=== PATIENT | female | born 1945 | race Caucasian/White ===

== ENCOUNTER 2019-02-04 14:20 | Emergency (ER) | payer OTHER ==
[2019-02-04 15:28] LABS: Absolute Lymphocytes (CBC) 1.9 K/uL (0.7-4.9); Absolute Monocytes 0.8 K/uL (0.1-1.3); Absolute Neutrophil 5.1 K/uL (1.8-8.0); Basophils % 1.1 % (0-1.3); Eosinophils % 1.6 % (0-4.4); Hematocrit 38.6 % (36.0-45.0); Lymphocytes % 23.2 % (15.3-44.8); MPV 7.9 fL (7.6-11.3); Monocytes % 10.3 % (3.3-12.3); RBC Red Blood Cell Count 4.41 M/uL (3.86-4.86)
[2019-02-04 15:49] LABS: Albumin 2.8 g/dL (3.4-5.0); Bilirubin Direct 0.1 mg/dL (0-0.2); Bilirubin Total 0.3 mg/dL (0.2-1.0); Potassium 3.9 mmol/L (3.5-5.1); Protein, Total 7.5 g/dL (6.4-8.2)
--- NOTE | 2019-02-04 17:13 | RAD REPORT ---
EXAM DESCRIPTION: CT - Chest Abdomen Pelvis W Cont - 02/04/2019 4:41 pm CLINICAL HISTORY: Chest and abdominal pain COMPARISON: none TECHNIQUE: Computed axial tomography of the abdomen and pelvis was obtained. One hundred cc Isovue- 300 was administered intravenously. Oral contrast was not requested. This limits evaluation of bowel. Originally CT abdomen pelvis performed. After seeing the aortic dissection additional 50 cc of IV co ntrast given for total of [address] chest performed. The opacification of the ascending thoracic aorta and great vessels, and aortic arch is mildly suboptimal All CT scans are performed using dose optimization technique as appropriate and may include automated exposure control or mA/KV adjustment according to patient size. FINDINGS: Ascending thoracic aorta has an AP diameter 3.8 centimeters. 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 The dissection involves the entire abdominal aorta. The dissection extends into the right common and right external iliac arteries. The dissection involves the right common femora l and very proximal right superficial femoral artery. It appears that the true lumen is in the left a spect of the abdominal aorta and supplies the left renal artery and FRANK. It appears that the false olivia men supplies the celiac and SMA A pericardial effusion is not present. Small to moderate left and small right pleural effusions. Left lower lobe atelectasis. Small hepatic cyst. Spleen, pancreas, adrenals and kidneys unremarkable. Diverticula stem from the colon without diverticulitis. A 4.3 centimeter left ovarian cystic mass. 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 ([place] B) 4.3 centimeter left ovarian cystic mass. Nonemergent pelvic ultrasound recommended for further evalua tion Exam was discussed with Valente in the Emergency Room 5:03 p.m. February 04, 2019
[2019-02-04] MEDS ORDERED: Nicardipine/NS 25 MG/250 ML KIT IV ONE ×2 (17:14→19:17)
--- NOTE | 2019-02-04 18:00 | ER ---
Nurse's Notes [facility] Name: Marlene Valderrama Age: 73 yrs Sex: Female : 1945 Arrival Date: 02/04/2019 Time: 14:23 Bed 27 Private MD: Jey Mora B Diagnosis: Dissection of aorta Presentation: 02/04 14:23 Presenting complaint: Patient states: Lower abd pain for several days, has appointments sg scheduled with PCP for outpatient procedures but the pain has become much worse today and is unable to wait for scheduled testing, pt denies N/V/D/Fever at this time. Transition of care: patient was not received from another setting of care. Onset of symptoms was February 04, 2019. Risk Assessment: Do you want to hurt yourself or someone else? Patient reports no desire to harm self or others. Initial Sepsis Screen: Does the patient meet any 2 criteria? No. Patient's initial sepsis screen is negative. Does the patient have a suspected source of infection? Yes: Acute abdominal pain. Care prior to arrival: None. 14:23 Method Of Arrival: Ambulatory sg 14:23 Acuity: IGOR 3 sg Historical: - Allergies: 14:25 No Known Allergies; sg - Home Meds: 14:27 Unkown BP med [Active]; Unknown High Cholesterol Med [Active]; sg - PSHx: 14:25 R wrist; Thyroidectomy; sg - Immunization history:: Adult Immunizations up to date. - Social history:: Smoking status: Patient/guardian denies using tobacco. - Ebola Screening: : Patient negative for fever greater than or equal to 101.5 degrees Fahrenheit, and additional compatible Ebola Virus Disease symptoms Patient denies exposure to infectious person Patient denies travel to an Ebola-affected area in the 21 days before illness onset No symptoms or risks identified at this time. Screenin:53 Abuse screen: Denies threats or abuse. Denies injuries from another. Nutritional mg2 screening: No deficits noted. Tuberculosis screening: No symptoms or risk factors identified. Fall Risk IV access (20 points). Assessment: 15:51 General: Appears in no apparent distress. comfortable, Behavior is calm, cooperative. mg2 Pain: Complains of pain in abdomen Pain does not radiate. Pain currently is 4 out of 10 on a pain scale. Quality of pain is described as crampy, Pain began gradually, 2 weeks ago Is intermittent. Neuro: Level of Consciousness is awake, alert, obeys commands, Oriented to person, place, time, situation. Cardiovascular: Capillary refill < 3 seconds Patient's skin is warm and dry. Respiratory: Airway is patent Respiratory effort is even, unlabored, Respiratory pattern is regular, symmetrical. GI: Reports lower abdominal pain. : No signs and/or symptoms were reported regarding the genitourinary system. EENT: No signs and/or symptoms were reported regarding the EENT system. Derm: Skin is intact, is healthy with good turgor, Skin is pink, warm \T\ dry. normal. Musculoskeletal: Circulation, motion, and sensation intact. Capillary refill < 3 seconds, Reports weakness in right leg and left leg. 16:33 Reassessment: patient sent to ct scan via stretcher. mg2 18:22 Reassessment: patient informed about the need for transfer. patient and sister agreed mg2 about the plan. medications titrated according to blood pressure. 18:51 Reassessment: report called to MALINDA Mcallister of [facility] ICU [facility]. patient's sister mg2 signed the transfer form. patient kept on npo. Vital Signs: 14:24 BP 157 / 97; Pulse 88; Resp 19; Temp 97.6; Pulse Ox 100% on R/A; Weight 82.55 kg; Pain sg 10/10; 15:53 BP 163 / 84; Pulse 85; Resp 18; Pulse Ox 100% on R/A; Pain 3/10; mg2 16:51 BP 179 / 67; Pulse 80; Resp 18; Pulse Ox 100% on R/A; Pain 0/10; mg2 17:10 BP 194 / 83; Pulse 89; Resp 18; Pulse Ox 100% on R/A; Pain 0/10; mg2 17:17 BP 166 / 87; Pulse 93; Resp 16; Pulse Ox 96% on R/A; iw 17:25 BP 158 / 91; Pulse 99; Resp 18; Pulse Ox 96% on R/A; Pain 0/10; mg2 17:42 BP 141 / 67; Pulse 101; Resp 18; Pulse Ox 96% on R/A; mg2 18:10 BP 125 / 76; Pulse 105; Resp 18; Pulse Ox 98% on R/A; mg2 18:15 BP 102 / 82; Pulse 110; Resp 18; Pulse Ox 100% on R/A; Pain 0/10; mg2 18:51 BP 134 / 69; Pulse 98; Resp 18; Pulse Ox 98% on R/A; Pain 0/10; mg2 19:09 BP 132 / 67; Pulse 101; Resp 18; Pulse Ox 100% on R/A; Pain 0/10; mg2 ED Course: 14:23 Patient arrived in ED. mr 14:23 Jey Mora MD is Private Physician. mr 14:24 Triage completed. sg 14:24 Arm band placed on. sg 15:01 Salomón Deras, MALINDA is Primary Nurse. mg2 15:36 Valente Morocho PA is PHCP. jr8 15:36 Sukhjinder Prescott MD is Attending Physician. jr8 15:53 Patient has correct armband on for positive identification. Pulse ox on. NIBP on. Door mg2 closed. 15:53 No provider procedures requiring assistance completed. Inserted saline lock: 20 gauge mg2 in right antecubital area, using aseptic technique. Blood collected. 16:14 Patient moved to [place]. vr 17:05 initiated a transfer with Nga at the [facility] transfer center. eb 17:[address] Garcia the cardiothoracic surgeon planning consultant for [facility] with Valente santoyo for patient transfer consultation. 19:09 Patient transferred, IV remains in place. mg2 Administered Medications: 17:09 Drug: Cardene 5 mg/min Route: IV; Rate: calculated rate; Site: right antecubital; mg2 19:03 Follow up: Response: No adverse reaction; IV Status: Infusion continued upon transfer mg2 Outcome: 17:59 ER care complete, transfer ordered by . jr8 19:10 Transferred by ground EMS to [facility], Transfer form completed. mg2 19:10 Condition: stable 19:10 Instructed on the need for transfer, Demonstrated understanding of instructions. 19:10 Patient left the ED. mg2 Signatures: Dispatcher [employer] EDMS George Roberts RN MALINDA DarrellElidia mr LeiMichelle, Ayaka Jones RN vr Valente Morocho PA PA jr Preeti Mohan eb Salomón Deras, MALINDA RN mg2 Corrections: (The following items were deleted from the chart) 16:42 16:31 In radiology for Abdomen Pelvis W Con+CT.RAD.BRZ. EDMS EDMS
--- NOTE | 2019-02-04 18:00 | EDPHYS ---
Physician Documentation [facility] Name: Marlene Valderrama Age: 73 yrs Sex: Female : 1945 Arrival Date: 02/04/2019 Time: 14:23 Bed 27 Private MD: Jey Mora B ED Physician Sukhjinder Prescott HPI: 02/04 17:11 This 73 yrs old Female presents to ER via Ambulatory with complaints of jr8 Abdominal Pain. 17:11 The patient presents with abdominal pain in the lower abdomen. Onset: The jr8 symptoms/episode began/occurred gradually, 4 day(s) ago. The symptoms do not radiate. Associated signs and symptoms: Pertinent positives: leg cramping. The symptoms are described as crampy, dull. Modifying factors: The symptoms are alleviated by nothing, the symptoms are aggravated by movement. Severity of pain: At its worst the pain was very mild in the emergency department the pain is unchanged. The patient has not experienced similar symptoms in the past. The patient has been recently seen by a physician:. Patient stated that she saw her PCP who ordered some labs and imaging but could not have it done until next week. Stated that she has this very light but uncomfortable feeling to lower abdomen along with leg cramping that comes and goes and is worse with walking . Historical: - Allergies: 14:25 No Known Allergies; sg - Home Meds: 14:27 Unkown BP med [Active]; Unknown High Cholesterol Med [Active]; sg - PSHx: 14:25 R wrist; Thyroidectomy; sg - Immunization history:: Adult Immunizations up to date. - Social history:: Smoking status: Patient/guardian denies using tobacco. - Ebola Screening: : Patient negative for fever greater than or equal to 101.5 degrees Fahrenheit, and additional compatible Ebola Virus Disease symptoms Patient denies exposure to infectious person Patient denies travel to an Ebola-affected area in the 21 days before illness onset No symptoms or risks identified at this time. ROS: 17:11 Eyes: Negative for injury, pain, redness, and discharge, ENT: Negative for injury, jr8 pain, and discharge, Neck: Negative for injury, pain, and swelling, Cardiovascular: Negative for chest pain, palpitations, and edema, Respiratory: Negative for shortness of breath, cough, wheezing, and pleuritic chest pain, Back: Negative for injury and pain, MS/Extremity: Negative for injury and deformity, Skin: Negative for injury, rash, and discoloration, Neuro: Negative for headache, weakness, numbness, tingling, and seizure. 17:11 Abdomen/GI: Positive for abdominal cramps, Negative for nausea, vomiting, and diarrhea, abdominal distension, anorexia, dysphagia, hematemesis, black/tarry stool, rectal pain, rectal bleeding, bowel incontinence, flatulence. Exam: 17:11 Eyes: Pupils equal round and reactive to light, extra-ocular motions intact. Lids and jr8 lashes normal. Conjunctiva and sclera are non-icteric and not injected. Cornea within normal limits. Periorbital areas with no swelling, redness, or edema. ENT: Nares patent. No nasal discharge, no septal abnormalities noted. Tympanic membranes are normal and external auditory canals are clear. Oropharynx with no redness, swelling, or masses, exudates, or evidence of obstruction, uvula midline. Mucous membranes moist. Neck: Trachea midline, no thyromegaly or masses palpated, and no cervical lymphadenopathy. Supple, full range of motion without nuchal rigidity, or vertebral point tenderness. No Meningismus. Respiratory: Lungs have equal breath sounds bilaterally, clear to auscultation and percussion. No rales, rhonchi or wheezes noted. No increased work of breathing, no retractions or nasal flaring. Abdomen/GI: Soft, non-tender, with normal bowel sounds. No distension or tympany. No guarding or rebound. No evidence of tenderness throughout. Back: No spinal tenderness. No costovertebral tenderness. Full range of motion. Skin: Warm, dry with normal turgor. Normal color with no rashes, no lesions, and no evidence of cellulitis. MS/ Extremity: Pulses equal, no cyanosis. Neurovascular intact. Full, normal range of motion. Neuro: Awake and alert, GCS 15, oriented to person, place, time, and situation. Cranial nerves II-XII grossly intact. Motor strength 5/5 in all extremities. Sensory grossly intact. Cerebellar exam normal. Normal gait. 17:11 Cardiovascular: Rate: normal, Rhythm: regular, Pulses: Pulses are 2+ in right radial artery, right femoral artery, left radial artery and left femoral artery. Heart sounds: normal, normal S1and S2, no S3 or S4, no murmur, no rub, no gallop, Edema: is not appreciated, JVD: is not appreciated. Vital Signs: 14:24 BP 157 / 97; Pulse 88; Resp 19; Temp 97.6; Pulse Ox 100% on R/A; Weight 82.55 kg; Pain sg 10/10; 15:53 BP 163 / 84; Pulse 85; Resp 18; Pulse Ox 100% on R/A; Pain 3/10; mg2 16:51 BP 179 / 67; Pulse 80; Resp 18; Pulse Ox 100% on R/A; Pain 0/10; mg2 17:10 BP 194 / 83; Pulse 89; Resp 18; Pulse Ox 100% on R/A; Pain 0/10; mg2 17:17 BP 166 / 87; Pulse 93; Resp 16; Pulse Ox 96% on R/A; iw 17:25 BP 158 / 91; Pulse 99; Resp 18; Pulse Ox 96% on R/A; Pain 0/10; mg2 17:42 BP 141 / 67; Pulse 101; Resp 18; Pulse Ox 96% on R/A; mg2 18:10 BP 125 / 76; Pulse 105; Resp 18; Pulse Ox 98% on R/A; mg2 18:15 BP 102 / 82; Pulse 110; Resp 18; Pulse Ox 100% on R/A; Pain 0/10; mg2 18:51 BP 134 / 69; Pulse 98; Resp 18; Pulse Ox 98% on R/A; Pain 0/10; mg2 19:09 BP 132 / 67; Pulse 101; Resp 18; Pulse Ox 100% on R/A; Pain 0/10; mg2 MDM: 15:36 Patient medically screened. jr8 17:11 Data reviewed: vital signs, nurses notes, lab test result(s), radiologic studies, CT jr8 scan. Data interpreted: Pulse oximetry: on room air is 100 %. Interpretation: normal. Counseling: I had a detailed discussion with the patient and/or guardian regarding: the historical points, exam findings, and any diagnostic results supporting the discharge/admit diagnosis, lab results, radiology results, the need to transfer to another facility, for higher level of care, [facility] does not immediately have the required specialist. 17:58 ED course: Dr. Garcia Accepted at [facility] for acute dissection . jr8 02/04 15:03 Order name: Basic Metabolic Panel; Complete Time: 16:06 mg2 02/04 15:03 Order name: CBC with Diff; Complete Time: 16:06 mg2 02/04 15:03 Order name: Creatinine for Radiology; Complete Time: 16:06 mg2 02/04 15:03 Order name: Hepatic Function; Complete Time: 16:06 mg2 02/04 15:03 Order name: Lipase; Complete Time: 16:06 mg2 02/04 15:26 Order name: Urine Dipstick--Ancillary (enter results) eb 02/04 15:03 Order name: IV Saline Lock; Complete Time: 15:51 mg2 02/04 15:03 Order name: Labs collected and sent; Complete Time: 15:51 mg2 02/04 15:03 Order name: Urine Dipstick-Ancillary (obtain specimen); Complete Time: 15:51 mg2 02/04 16:42 Order name: Chest Abdomen Pelvis W Cont; Complete Time: 17:16 EDMS Administered Medications: 17:09 Drug: Cardene 5 mg/min Route: IV; Rate: calculated rate; Site: right antecubital; mg2 19:03 Follow up: Response: No adverse reaction; IV Status: Infusion continued upon transfer mg2 Disposition: 02/04/19 17:59 Transfer ordered to [facility]. Diagnosis is Dissection of aorta. - Reason for transfer: Higher level of care. - Accepting physician is Dr. Garcia . - Condition is Fair. - Problem is new. - Symptoms have improved. Addendum: 02/07/2019 08:28 Co-signature as Attending Physician, Sukhjinder Prescott MD I agree with the assessment and k dr plan of care. Signatures: Dispatcher [employer] EDLA George Roberts, RN RN Sukhjinder Prescott MD MD [facility] Valente Morocho PA PA jr8 Salomón Deras, RN RN mg2 Corrections: (The following items were deleted from the chart) 02/04 16:42 16:07 Abdomen Pelvis W Con+CT.RAD.BRZ ordered. EDLA EDMS 19:10 17:59 02/04/2019 17:59 Transfer ordered to [facility]. Diagnosis is mg2 Dissection of aorta. Reason for transfer: Higher level of care. Accepting physician is Dr. Jose . Condition is Fair. Problem is new. Symptoms have improved. jr8
[2019-02-04 19:57] LABS: Urine Blood 2+ (NEG); Urine Glucose NEGATIVE (NEG); Urine Protein NEGATIVE (NEG)
== END 2019-02-04 19:10 | disposition short-term general hospital (02) ==
LOC: ER 14:20
DX: I71.01 Dissection of thoracic aorta (principal)
CPT/HCPCS: 96365; 85025; 80048; 36415; 80076; 81003; 83690; 71260; 74177; 99285; 96366; Q9967

== ENCOUNTER 2019-03-25 10:01 | Emergency (ER) | payer OTHER ==
--- OUTSIDE RECORDS SUMMARY | 2019-03-25 11:53 | XMS REPORT | Clinical Summary ---
:1945 Author Organization [facility] Address [address] [place] [address] Care Team Providers Name Role Phone Unavailable Primary Care Provider Unavailable Allergies No Known Allergies Medications Medication Sig Dispensed Refills Start Date End Date Status levothyroxine Take 100 mcg 3 12/15/2018 Active (SYNTHROID, by mouth LEVOTHROID) 100 MCG daily. tablet rosuvastatin Take 5 mg by 3 12/12/2018 Active (CRESTOR) 5 MG mouth daily. tablet aspirin 81 MG EC Take 1 tablet 30 tablet 3 02/20/2019 02/20/2020 Active tablet (81 mg total) by mouth daily. clopidogrel (PLAVIX) Take 1 tablet 30 tablet 3 02/19/2019 02/19/2020 Active 75 mg tablet (75 mg total) by mouth daily. metoprolol Take 0.5 30 tablet 3 02/19/2019 02/19/2020 Active (LOPRESSOR) 25 MG tablets (12.5 tablet mg total) by mouth 2 (two) times daily. nisoldipine (SULAR) Take 8.5 mg 3 12/18/2018 02/19/2019 Discontinued 8.5 MG 24 hr tablet by mouth daily. 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 Encounters Date Type Specialty Care Team Description 02/15/2019 Surgery Esa Rouse REPAIR,TEVAR-THORACI MD Jeffrey C ENDOVASCULAR ANEURYSM 02/15/2019 Anesthesia Event Devendra Lynn MD 02/05/2019 Orders Only General Internal Medicine 02/05/2019 Travel 02/04/2019 - Hospital Encounter Cardiology Christiano Riverariel 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 Never 02/05/2019 How many drinks containing alcohol do you have on a typical Not asked day when you are drinking? How often do you have six or more drinks on one occasion? Not asked Sex Assigned at Date Recorded Not on file Job Start Date Occupation Industry Not on file Not on file Not on file Travel History Travel Start Travel End No recent travel history available. Last Filed Vital Signs Vital Sign Reading Time Taken Blood Pressure 128/59 02/19/2019 12:08 PM CDT Pulse 86 02/19/2019 12:08 PM CDT Temperature 37.5 C (99.5 F) 02/19/2019 12:08 PM CDT Respiratory Rate 18 02/19/2019 12:08 PM CDT Oxygen Saturation 95% 02/19/2019 12:08 PM CDT Inhaled Oxygen Concentration 33% 02/15/2019 7:00 PM CDT Weight 77.7 kg (171 lb 4.8 oz) 02/19/2019 7:36 AM CDT Height 162.6 cm (5' 4") 02/04/2019 9:00 PM CDT Body Mass Index 29.4 02/19/2019 7:36 AM CDT Plan of Treatment Not on file Implants Implanted Type Area Mill Supervisor Device Shelf Model / Identifier Expiration Serial / Date Lot Moe Aguirre [id number] - [id number] CV Aneurysm N/A: COOK: AORTIC 07/06/2021 [id number] / Implanted: Qty: 1 on 02/15/2019 by Esa Rouse MD Aorta INTERVENTION / [id number] Stent Epic [id number] - [id number] IMPLANTS N/A: [employer] 2021 [id number] / Implanted: Qty: 1 on 02/15/2019 by Esa Rouse MD Aorta SCI: PERIPHERAL / INTERV [id number] Zenith Alpha Thorzcic Endovascular Graft. N/A: [employer] [id number] 02/05/2020 [id number] / Implanted: Qty: 1 on 02/15/2019 by Esa Rouse MD Aorta / [id number] Procedures Procedure Name Priority Date/Time Associated Comments Diagnosis RHYTHM STRIP - SCAN 02/22/2019 11:03 AM CDT VASCULAR DIAGRAM 02/21/2019 12:30 -SCAN PM CDT RHYTHM STRIP - SCAN 02/21/2019 12:30 PM CDT CTA CHEST,ABDOMEN & STAT 02/19/2019 11:20 Results for this PELVIS - FOR AM CDT procedure are in DISSECTION the results section. XR CHEST 1 VIEW Routine 02/19/2019 7:11 Results for this PORTABLE/BEDSIDE AM CDT procedure are in the results section. PROTHROMBIN TIME/INR Routine 02/19/2019 5:14 Results for this AM CDT procedure are in the results section. APTT Routine 02/19/2019 5:14 Results for this AM CDT procedure are in the results section. PHOSPHORUS Routine 02/19/2019 5:14 Results for this AM CDT procedure are in the results section. MAGNESIUM Routine 02/19/2019 5:14 Results for this AM CDT procedure are in the results section. BASIC METABOLIC PANEL Routine 02/19/2019 5:14 Results for this (7) AM CDT procedure are in the results section. CBC (HEMOGRAM ONLY) Routine 02/19/2019 5:14 Results for this AM CDT procedure are in the results section. XR CHEST 1 VIEW Routine 02/18/2019 6:03 Results for this PORTABLE/BEDSIDE AM CDT procedure are in the results section. PROTHROMBIN TIME/INR Routine 02/18/2019 4:59 Results for this AM CDT procedure are in the results section. APTT Routine 02/18/2019 4:59 Results for this AM CDT procedure are in the results section. PHOSPHORUS Routine 02/18/2019 4:59 Results for this AM CDT procedure are in the results section. MAGNESIUM Routine 02/18/2019 4:59 Results for this AM CDT procedure are in the results section. BASIC METABOLIC PANEL Routine 02/18/2019 4:59 Results for this (7) AM CDT procedure are in the results section. CBC (HEMOGRAM ONLY) Routine 02/18/2019 4:59 Results for this AM CDT procedure are in the results section. RHYTHM STRIP - SCAN 02/17/2019 3:04 PM CDT MAGNESIUM Routine 02/17/2019 11:46 Results for this AM CDT procedure are in the results section. BASIC METABOLIC PANEL Routine 02/17/2019 11:46 Results for this (7) AM CDT procedure are in the results section. XR CHEST 1 VIEW Routine 02/17/2019 7:10 Results for this PORTABLE/BEDSIDE AM CDT procedure are in the results section. PROTHROMBIN TIME/INR Routine 02/17/2019 3:04 Results for this AM CDT procedure are in the results section. APTT Routine 02/17/2019 3:04 Results for this AM CDT procedure are in the results section. PHOSPHORUS Routine 02/17/2019 3:04 Results for this AM CDT procedure are in the results section. MAGNESIUM Routine 02/17/2019 3:04 Results for this AM CDT procedure are in the results section. BASIC METABOLIC PANEL Routine 02/17/2019 3:04 Results for this (7) AM CDT procedure are in the results section. CBC (HEMOGRAM ONLY) Routine 02/17/2019 3:04 Results for this AM CDT procedure are in the results section. PHOSPHORUS Routine 02/16/2019 5:18 Results for this PM CDT procedure are in the results section. MAGNESIUM Routine 02/16/2019 5:18 Results for this PM CDT procedure are in the results section. POTASSIUM Routine 02/16/2019 5:18 Results for this PM CDT procedure are in the results section. XR CHEST 1 VIEW Routine 02/16/2019 5:22 Results for this PORTABLE/BEDSIDE AM CDT procedure are in the results section. PROTHROMBIN TIME/INR Routine 02/16/2019 4:42 Results for this AM CDT procedure are in the results section. APTT Routine 02/16/2019 4:42 Results for this AM CDT procedure are in the results section. PHOSPHORUS Routine 02/16/2019 4:42 Results for this AM CDT procedure are in the results section. MAGNESIUM Routine 02/16/2019 4:42 Results for this AM CDT procedure are in the results section. BASIC METABOLIC PANEL Routine 02/16/2019 4:42 Results for this (7) AM CDT procedure are in the results section. CBC (HEMOGRAM ONLY) Routine 02/16/2019 4:42 Results for this AM CDT procedure are in the results section. MAGNESIUM Routine 02/15/2019 9:16 Results for this PM CDT procedure are in the results section. CALCIUM, IONIZED Routine 02/15/2019 9:16 Results for this PM CDT procedure are in the results section. POTASSIUM Routine 02/15/2019 9:16 Results for this PM CDT procedure are in the results section. TRANSFUSION SERVICE 02/15/2019 6:11 REPORT - SCAN PM CDT XR CHEST 1 VIEW STAT 02/15/2019 2:47 Results for this PORTABLE/BEDSIDE PM CDT procedure are in the results section. CBC W/PLT COUNT & STAT 02/15/2019 2:43 Results for this AUTO DIFFERENTIAL PM CDT procedure are in the results section. HGB/HCT (H&H) - STAT STAT 02/15/2019 2:43 Results for this LAB PM CDT procedure are in the results section. GLUCOSE-STAT LAB STAT 02/15/2019 2:43 Results for this PM CDT procedure are in the results section. POTASSIUM-STAT LAB STAT 02/15/2019 2:43 Results for this PM CDT procedure are in the results section. SODIUM NA-STAT LAB STAT 02/15/2019 2:43 Results for this PM CDT procedure are in the results section. BLOOD GAS, ARTERIAL STAT 02/15/2019 2:43 Results for this PM CDT procedure are in the results section. APTT STAT 02/15/2019 2:43 Results for this PM CDT procedure are in the results section. PROTHROMBIN TIME/INR STAT 02/15/2019 2:43 Results for this PM CDT procedure are in the results section. CALCIUM, IONIZED STAT 02/15/2019 2:43 Results for this PM CDT procedure are in the results section. RRL CRITICAL LABS STAT 02/15/2019 2:43 Results for this (ABG,NA,K,H&H,GLUCOSE PM CDT procedure are in ) the results section. PHOSPHORUS STAT 02/15/2019 2:43 Results for this PM CDT procedure are in the results section. MAGNESIUM STAT 02/15/2019 2:43 Results for this PM CDT procedure are in the results section. CBC W/PLT COUNT & STAT 02/15/2019 2:43 Results for this AUTO DIFFERENTIAL PM CDT procedure are in the results section. BASIC METABOLIC PANEL STAT 02/15/2019 2:43 Results for this (7) PM CDT procedure are in the results section. XR CHEST 1 VIEW Routine 02/15/2019 2:39 Results for this PORTABLE/BEDSIDE PM CDT procedure are in the results section. POCT-ACT Routine 02/15/2019 12:02 Results for this PM CDT procedure are in the results section. POCT-ACT Routine 02/15/2019 11:37 Results for this AM CDT procedure are in the results section. POCT-ACT Routine 02/15/2019 11:25 Results for this AM CDT procedure are in the results section. HGB/HCT (H&H) - STAT STAT 02/15/2019 10:38 Results for this LAB AM CDT procedure are in the results section. GLUCOSE-STAT LAB STAT 02/15/2019 10:38 Results for this AM CDT procedure are in the results section. POTASSIUM-STAT LAB STAT 02/15/2019 10:38 Results for this AM CDT procedure are in the results section. SODIUM NA-STAT LAB STAT 02/15/2019 10:38 Results for this AM CDT procedure are in the results section. BLOOD GAS, ARTERIAL STAT 02/15/2019 10:38 Results for this AM CDT procedure are in the results section. CALCIUM, IONIZED STAT 02/15/2019 10:38 Results for this AM CDT procedure are in the results section. RRL CRITICAL LABS STAT 02/15/2019 10:38 Results for this (ABG,NA,K,H&H,GLUCOSE AM CDT procedure are in ) the results section. REPAIR,TEVAR-THORACIC 02/15/2019 9:30 Dissection of ENDOVASCULAR ANEURYSM AM CDT aorta, thoracic (HCC) Case Notes 3 HRS Special Needs (INTRAVASCULAR ULTRASOUND, CEREBRAL SPINAL FLUID DRAIN) CBC (HEMOGRAM ONLY) Routine 02/15/2019 3:58 AM CDT BASIC METABOLIC PANEL (7) Routine 02/15/2019 3:58 AM CDT URINALYSIS W/ MICROSCOPIC Routine 02/14/2019 6:19 PM CDT ECG 12-LEAD Routine 02/14/2019 6:06 PM CDT Procedure Note - Interface, External Ris In - 02/14/2019 6:26 PM CDT Ventricular Rate 84 BPM Atrial Rate 84 BPM P-R Interval 132 ms QRS Duration 74 ms Q-T Interval 378 ms QTC Calculation(Bazett) 446 ms P Arjay 28 degrees R Arjay 7 degrees T Arjay 42 degrees Normal sinus rhythm Normal ECG When compared with ECG of 05-FEB-2019 13:41, No significant change was found ECG 12-LEAD Routine 02/14/2019 6:06 PM CDT XR CHEST 2 VIEWS Routine 02/14/2019 5:36 PM CDT TYPE AND SCREEN, AUTOMATED Routine 02/14/2019 5:27 PM CDT PROTHROMBIN TIME/INR Routine 02/14/2019 5:27 PM CDT RETICULOCYTE COUNT Routine 02/14/2019 5:27 PM CDT HEPATIC FUNCTION PANEL Routine 02/14/2019 5:27 PM CDT LIPASE Routine 02/14/2019 5:27 PM CDT LACTATE DEHYDROGENASE (LDH) Routine 02/14/2019 5:27 PM CDT HIV-1 ANTIGEN WITH HIV-1/2 Routine 02/14/2019 5:27 PM CDT Results for this ANTIBODY procedure are in the results section. HEPATITIS C ANTIBODY Routine 02/14/2019 5:27 PM CDT HEPATITIS B PANEL Routine 02/14/2019 5:27 PM CDT AMYLASE Routine 02/14/2019 5:27 PM CDT CBC (HEMOGRAM ONLY) Routine 02/14/2019 4:13 AM CDT BASIC METABOLIC PANEL (7) Routine 02/14/2019 4:13 AM CDT CBC (HEMOGRAM ONLY) Routine 02/13/2019 4:57 AM CDT BASIC METABOLIC PANEL (7) Routine 02/13/2019 4:57 AM CDT CBC (HEMOGRAM ONLY) Routine 02/12/2019 6:22 AM CDT BASIC METABOLIC PANEL (7) Routine 02/12/2019 6:22 AM CDT CBC (HEMOGRAM ONLY) Routine 02/11/2019 5:31 AM CDT MAGNESIUM Routine 02/11/2019 5:31 AM CDT BASIC METABOLIC PANEL (7) Routine 02/11/2019 5:31 AM CDT CBC (HEMOGRAM ONLY) Routine 02/10/2019 3:26 AM CDT MAGNESIUM Routine 02/10/2019 3:26 AM CDT BASIC METABOLIC PANEL (7) Routine 02/10/2019 3:26 AM CDT CBC (HEMOGRAM ONLY) Routine 02/09/2019 10:31 AM CDT MAGNESIUM Routine 02/09/2019 10:31 AM CDT BASIC METABOLIC PANEL (7) Routine 02/09/2019 10:31 AM CDT ECHOCARDIOGRAM REPORT - SCAN 02/07/2019 9:22 PM CDT CTA CHEST,ABDOMEN & PELVIS - Routine 02/07/2019 8:18 PM CDT Results for this FOR DISSECTION procedure are in the results section. 2D ECHO W/ DOPPLER Timed 02/07/2019 11:16 AM CDT (CW/PW/COLOR) 2D ECHO W/ DOPPLER Routine 02/07/2019 8:47 AM CDT Results for this (CW/PW/COLOR) procedure are in the results section. CBC W/PLT COUNT & AUTO Routine 02/07/2019 3:51 AM CDT Results for this DIFFERENTIAL procedure are in the results section. PHOSPHORUS Routine 02/07/2019 3:51 AM CDT MAGNESIUM Routine 02/07/2019 3:51 AM CDT BASIC METABOLIC PANEL (7) Routine 02/07/2019 3:51 AM CDT CBC W/PLT COUNT & AUTO Routine 02/07/2019 3:51 AM CDT Results for this DIFFERENTIAL procedure are in the results section. PHOSPHORUS Routine 02/06/2019 4:56 AM CDT MAGNESIUM Routine 02/06/2019 4:56 AM CDT BASIC METABOLIC PANEL (7) Routine 02/06/2019 4:56 AM CDT CBC W/PLT COUNT & AUTO Routine 02/06/2019 4:31 AM CDT Results for this DIFFERENTIAL procedure are in the results section. CBC W/PLT COUNT & AUTO Routine 02/06/2019 4:31 AM CDT Results for this DIFFERENTIAL procedure are in the results section. PERIPHERAL VASCULAR REPORT - 02/05/2019 9:21 PM CDT SCAN TRANSFUSION SERVICE REPORT - 02/05/2019 6:03 PM CDT SCAN ECG 12-LEAD Routine 02/05/2019 1:41 PM CDT Procedure Note - Interface, External Ris In - 02/05/2019 1:57 PM CDT Ventricular Rate 68 BPM Atrial Rate 68 BPM P-R Interval 150 ms QRS Duration 78 ms Q-T Interval 420 ms QTC Calculation(Bazett) 446 ms P Arjay 18 degrees R Arjay 5 degrees T Arjay 44 degrees Normal sinus rhythm Normal ECG No previous ECGs available ECG 12-LEAD STAT 02/05/2019 1:41 PM CDT ARTERIAL DOPPLER LEGS Routine 02/05/2019 12:50 PM CDT Results for this BILATERAL procedure are in the results section. CBC W/PLT COUNT & AUTO Routine 02/05/2019 4:17 AM CDT Results for this DIFFERENTIAL procedure are in the results section. PHOSPHORUS Routine 02/05/2019 4:17 AM CDT MAGNESIUM Routine 02/05/2019 4:17 AM CDT BASIC METABOLIC PANEL (7) Routine 02/05/2019 4:17 AM CDT CBC W/PLT COUNT & AUTO Routine 02/05/2019 4:17 AM CDT Results for this DIFFERENTIAL procedure are in the results section. XR CHEST 1 VIEW STAT 02/05/2019 12:25 AM CDT Results for this PORTABLE/BEDSIDE procedure are in the results section. ABORH, MANUAL STAT 02/04/2019 9:32 PM CDT CBC W/PLT COUNT & AUTO Routine 02/04/2019 8:56 PM CDT Results for this DIFFERENTIAL procedure are in the results section. TYPE AND SCREEN, AUTOMATED Routine 02/04/2019 8:56 PM CDT PROTHROMBIN TIME/INR Routine 02/04/2019 8:56 PM CDT PT/APTT Routine 02/04/2019 8:56 PM CDT MAGNESIUM Routine 02/04/2019 8:56 PM CDT PHOSPHORUS Routine 02/04/2019 8:56 PM CDT CBC W/PLT COUNT & AUTO Routine 02/04/2019 8:56 PM CDT Results for this DIFFERENTIAL procedure are in the results section. BASIC METABOLIC PANEL (7) Routine 02/04/2019 8:56 PM CDT after 03/24/2018 Results RHYTHM STRIP - SCAN (02/22/2019 11:03 AM CDT)Only the most recent of3 resultswithin the time period is included. Narrative Performed At VASCULAR DIAGRAM -SCAN (02/21/2019 12:30 PM CDT) Narrative Performed At CTA chest, abdomen & pelvis - for dissection (02/19/2019 11:20 AM CDT)Only the most recent of2 resultswithin the time period is included. Specimen Narrative Performed At Addendum Begins [facility] REPORT STATUS:A ADDENDUM: Study reviewed by radiology. Agree with the nonvascular findings as described below. Ultrasound of the pelvis is recommended for further evaluation of the left adnexal cystic lesion. Signed: Devendra Garcia MD Report Verified Date/Time:02/21/2019 13:06:06 Reading Location: [place] [address] Angio Body Reading Room Addendum Ends FINAL REPORT CT angiography of the thoracoabdominal aorta and pelvic arteries, 19 February 2019 INDICATION: This is a 73 year old female with stenting of the descending thoracic aorta presents for assessment. This study is performed in an attempt to avoid an invasive procedure. TECHNIQUE: Spiral acquisition before and during intravenous contrast administration using a Phuong multidetector CT scanner. Images were obtained before and during the dynamic passage of intravenous contrast material.Multi-planar 3-D volume-rendering reconstruction was performed using an independent workstation interactively by the interpreting physician as well as the 3-D specialist for optimal visualisation of the thoracoabdominal aorta, the pelvic arteries as well as its proximal branches. Please refer to the contrast sheet scanned in the EPIC system for the amount and route of contrast given. This exam was performed according to our departmental dose-optimisation programme, which includes automated exposure control, adjustment of the mA and/or kV according to patient size and/or use of iterative reconstruction technique. Dose modulation, iterative reconstruction, and/or weight based adjustment of the mA/kV was utilized to reduce the radiation dose to as low as reasonably achievable. FINDINGS: VASCULAR: A central venous catheter is identified, with tip in the SVC. The central pulmonary arteries are normal in calibre. The cardiac chambers demonstrate normal atrioventricular and ventriculoarterial concordance, and systemic and pulmonary venous return. The left ventricle is normal in size. Left atrial prominence is identified. Coronary artery origins are normal. No significant calcification is seen in the coronary arteries in the precontrast series. No interval change is identified in the aortic root, ascending thoracic aorta and transverse arch. No retrograde dissection is identified. Arch vessel branching pattern is normal and the visualised arch vessels are seen to be patent proximally. There is interval placement of an endostent, commencing at the takeoff of the left subclavian artery, through the entire descending thoracic aorta and terminates at the diaphragmatic hiatus. The endostent is well-positioned. In the arterial and delay images, no endoleak is identified. The left subclavian artery is still well enhanced by contrast. 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 The dissection extends through the entire abdominal aorta, and involves the left common iliac, left external iliac and the left common femoral artery and also involve the origin of the left SFA and the left profunda system. In the right, the dissection involves the right common iliac, right external iliac, right common femoral, and spared the visualised right SFA and the right profunda system. The false lumen of the dissection is not filled by contrast in the distal descending thoracic aorta (thrombosed) and both the true and the false lumen are well enhanced by contrast in the abdominal aorta though there is still minimal thrombus identified just above the aortic bifurcation. The false lumen in the right pelvic arteries are thrombosed though the left and right pelvic arteries are still widely patent and well enhanced by contrast. The coeliac axis, SMA, right renal artery, all rise from the true lumen of the dissection. Interval placement of a renal stent is identified in the left renal artery that is widely patent. The FRANK arise from the false lumen of the dissection. Quantitative dimensions of the thoracoabdominal aorta are as follows - not measured. Measurement will be made in future follow-up examination. NON-VASCULAR: The thyroid gland is not well assessed. The chest wall and mediastinum appear normal. No significant adenopathy is seen. In the lung windows, no obvious endobronchial lesion is seen. Minimal debris is identified anterior aspect of the thoracic aorta. Currently denies moderate to large left pleural effusion identified with associated atelectatic changes/consolidation. No pleural effusion is identified in the right base with only dependent changes present. By Hounsfield unit measurement, the effusion is simple in nature. No pneumothorax is identified. Tiny 2 mm nodule seen in the fissure in the right lung at image 77 representing interfissural lymph node. No suspicious pulmonary nodule is identified. In the abdomen, the liver and spleen appears unremarkable. Subcentimeter hypodensities are seen in the liver, too small to characterise. No abnormal enhancing structure is identified. Small gallstones are seen in the gallbladder with no wall thickening identified. No biliary ductal dilation is seen. The pancreas appears unremarkable. The adrenal glands are not enlarged. No acute renal pathology is seen and no hydronephrosis or perirenal fluid collection is identified. Subcentimeter hypodensity is identified in the lateral aspect of the left kidney, too small to characterise. Both kidneys enhances equally, by visual estimation. Bowel is not well assessed by CT angiography as enteric contrast not given. No obvious bowel dilation is identified. Diffuse diverticular disease is seen with no acute pathology changes present. The bladder is not distended. The uterus is identified. Hypodensity is identified in the left adnexa, at image 333, measures 4.4 x 3.1 cm in diameter that is water density. This is an abnormal finding in patient's age group. This is already been described in prior addendum by the Financial Planning Advisor Radiologist and dedicated ultrasound scan should be performed when acute medical issues has resolved for tissue characterisation. Some inflammatory changes are seen in the right groin, likely represent prior catheterization. No intraperitoneal contrast is seen, and no discrete haematoma is noted. There is no significant retroperitoneal adenopathy.No free fluid or free air is identified. No interval change is seen in the bony findings. CONCLUSIONS: 1. Unremarkable ascending thoracic aorta and transverse arch. No dissection is seen at this level. Interval placement of a endostent, commencing at the takeoff of the left subclavian artery through the descending thoracic aorta and terminates just above the diaphragmatic hiatus. The endostent has excellent position. No endoleak is identified. The left subclavian artery is well enhanced by contrast. 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 The pelvic arteries are still well enhanced by contrast; . See above for details. Status of the mesenteric and renal arteries as described above and they're well enhanced by contrast. Interval placement of left renal stent that is widely patent. 2.Moderate to large left pleural effusion when compared to moderate effusion in prior examination a week ago. No suspicious pulmonary nodule is identified. 3.Other findings as described above. Left adnexal cystic lesion, already been described in prior addendum, and the Financial Planning Advisor Radiologist recommended dedicated pelvic ultrasound scan for further tissue as this is an abnormal finding for patient's age group. 4.An addendum will be dictated regarding the non-vascular findings by the Financial Planning Advisor Radiologist. Signed: Shaggy Brown MD Report Verified Date/Time:02/20/2019 08:12:32 Reading Location: [place] [address] Cardiology MRI Procedure Note Interface, External Ris In - 02/21/2019 1:08 PM CDT Addendum Begins REPORT STATUS:A ADDENDUM: Study reviewed by radiology. Agree with the nonvascular findings as described below. Ultrasound of the pelvis is recommended for further evaluation of the left adnexal cystic lesion. Signed: Devendra Garcia MD Report Verified Date/Time: 02/21/2019 13:06:06 Reading Location: [place] [id number] Angio Body Reading Room Addendum Ends FINAL REPORT CT angiography of the thoracoabdominal aorta and pelvic arteries, 19 February 2019 INDICATION: This is a 73 year old female with stenting of the descending thoracic aorta presents for assessment. This study is performed in an attempt to avoid an invasive procedure. TECHNIQUE: Spiral acquisition before and during intravenous contrast administration using a Phuong multidetector CT scanner. Images were obtained before and during the dynamic passage of intravenous contrast material. Multi-planar 3-D volume-rendering reconstruction was performed using an independent workstation interactively by the interpreting physician as well as the 3-D specialist for optimal visualisation of the thoracoabdominal aorta, the pelvic arteries as well as its proximal branches. Please refer to the contrast sheet scanned in the EPIC system for the amount and route of contrast given. This exam was performed according to our departmental dose-optimisation programme, which includes automated exposure control, adjustment of the mA and/or kV according to patient size and/or use of iterative reconstruction technique. Dose modulation, iterative reconstruction, and/or weight based adjustment of the mA/kV was utilized to reduce the radiation dose to as low as reasonably achievable. FINDINGS: VASCULAR: A central venous catheter is identified, with tip in the SVC. The central pulmonary arteries are normal in calibre. The cardiac chambers demonstrate normal atrioventricular and ventriculoarterial concordance, and systemic and pulmonary venous return. The left ventricle is normal in size. Left atrial prominence is identified. Coronary artery origins are normal. No significant calcification is seen in the coronary arteries in the precontrast series. No interval change is identified in the aortic root, ascending thoracic aorta and transverse arch. No retrograde dissection is identified. Arch vessel branching pattern is normal and the visualised arch vessels are seen to be patent proximally. There is interval placement of an endostent, commencing at the takeoff of the left subclavian artery, through the entire descending thoracic aorta and terminates at the diaphragmatic hiatus. The endostent is well-positioned. In the arterial and delay images, no endoleak is identified. The left subclavian artery is still well enhanced by contrast. 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 The dissection extends through the entire abdominal aorta, and involves the left common iliac, left external iliac and the left common femoral artery and also involve the origin of the left SFA and the left profunda system. In the right, the dissection involves the right common iliac, right external iliac, right common femoral, and spared the visualised right SFA and the right profunda system. The false lumen of the dissection is not filled by contrast in the distal descending thoracic aorta (thrombosed) and both the true and the false lumen are well enhanced by contrast in the abdominal aorta though there is still minimal thrombus identified just above the aortic bifurcation. The false lumen in the right pelvic arteries are thrombosed though the left and right pelvic arteries are still widely patent and well enhanced by contrast. The coeliac axis, SMA, right renal artery, all rise from the true lumen of the dissection. Interval placement of a renal stent is identified in the left renal artery that is widely patent. The FRANK arise from the false lumen of the dissection. Quantitative dimensions of the thoracoabdominal aorta are as follows - not measured. Measurement will be made in future follow-up examination. NON-VASCULAR: The thyroid gland is not well assessed. The chest wall and mediastinum appear normal. No significant adenopathy is seen. In the lung windows, no obvious endobronchial lesion is seen. Minimal debris is identified anterior aspect of the thoracic aorta. Currently denies moderate to large left pleural effusion identified with associated atelectatic changes/consolidation. No pleural effusion is identified in the right base with only dependent changes present. By Hounsfield unit measurement, the effusion is simple in nature. No pneumothorax is identified. Tiny 2 mm nodule seen in the fissure in the right lung at image 77 representing interfissural lymph node. No suspicious pulmonary nodule is identified. In the abdomen, the liver and spleen appears unremarkable. Subcentimeter hypodensities are seen in the liver, too small to characterise. No abnormal enhancing structure is identified. Small gallstones are seen in the gallbladder with no wall thickening identified. No biliary ductal dilation is seen. The pancreas appears unremarkable. The adrenal glands are not enlarged. No acute renal pathology is seen and no hydronephrosis or perirenal fluid collection is identified. Subcentimeter hypodensity is identified in the lateral aspect of the left kidney, too small to characterise. Both kidneys enhances equally, by visual estimation. Bowel is not well assessed by CT angiography as enteric contrast not given. No obvious bowel dilation is identified. Diffuse diverticular disease is seen with no acute pathology changes present. The bladder is not distended. The uterus is identified. Hypodensity is identified in the left adnexa, at image 333, measures 4.4 x 3.1 cm in diameter that is water density. This is an abnormal finding in patient's age group. This is already been described in prior addendum by the Financial Planning Advisor Radiologist and dedicated ultrasound scan should be performed when acute medical issues has resolved for tissue characterisation. Some inflammatory changes are seen in the right groin, likely represent prior catheterization. No intraperitoneal contrast is seen, and no discrete haematoma is noted. There is no significant retroperitoneal adenopathy. No free fluid or free air is identified. No interval change is seen in the bony findings. CONCLUSIONS: 1. Unremarkable ascending thoracic aorta and transverse arch. No dissection is seen at this level. Interval placement of a endostent, commencing at the takeoff of the left subclavian artery through the descending thoracic aorta and terminates just above the diaphragmatic hiatus. The endostent has excellent position. No endoleak is identified. The left subclavian artery is well enhanced by contrast. 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 The pelvic arteries are still well enhanced by contrast; . See above for details. Status of the mesenteric and renal arteries as described above and they're well enhanced by contrast. Interval placement of left renal stent that is widely patent. 2. Moderate to large left pleural effusion when compared to moderate effusion in prior examination a week ago. No suspicious pulmonary nodule is identified. 3. Other findings as described above. Left adnexal cystic lesion, already been described in prior addendum, and the Financial Planning Advisor Radiologist recommended dedicated pelvic ultrasound scan for further tissue as this is an abnormal finding for patient's age group. 4. An addendum will be dictated regarding the non-vascular findings by the Financial Planning Advisor Radiologist. Signed: Shaggy Brown MD Report Verified Date/Time: 02/20/2019 08:12:32 Reading Location: [place] [address] Cardiology MRI Performing Organization Address City/State/Zipcode Phone Number [facility] XR chest 1 view portable / bedside (02/19/2019 7:11 AM CDT)Only the most recent of7 resultswithin the time period is included. Specimen Narrative Performed At FINAL REPORT [facility] Comparison: 02/18/2019 TECHNIQUE: Single view of the chest FINDINGS: Left pleural effusion and adjacent airspace disease again noted. Lungs otherwise clear. Cardiac silhouette is enlarged. Thoracic aortic stent graft noted. Right internal jugular central line is stable. Signed: Sha Freeman MD Report Verified Date/Time:02/19/2019 12:36:50 Reading Location: [facility] [id number] Ortho Consult Reading Room Procedure Note Interface, External Ris In - 02/19/2019 12:39 PM CDT FINAL REPORT Comparison: 02/18/2019 TECHNIQUE: Single view of the chest FINDINGS: Left pleural effusion and adjacent airspace disease again noted. Lungs otherwise clear. Cardiac silhouette is enlarged. Thoracic aortic stent graft noted. Right internal jugular central line is stable. Signed: Sha Freeman MD Report Verified Date/Time: 02/19/2019 12:36:50 Reading Location: [facility] B1 [id number] Ortho Consult Reading Room Performing Organization Address City/[facility] Cent[facility] Phone Number [facility] aPTT (02/19/2019 5:14 AM CDT)Only the most recent of5 resultswithin the time period is included. PTT 34.6 22.5 - 36.0 seconds [facility] Specimen Blood Performing Organization Address City/[facility]/Zipcode Phone Number [facility] [address] [place] [phone] CENTER Prothrombin time/INR (02/19/2019 5:14 AM CDT)Only the most recent of7 resultswithin the time period is included. Protime 14.2 11.7 - 14.7 seconds [facility] INR 1.1 <=5.9 [facility] Specimen Blood Narrative Performed At RECOMMENDED COUMADIN/WARFARIN INR THERAPY [facility] RANGES STANDARD DOSE: 2.0 - 3.0 Includes: PROPHYLAXIS for venous thrombosis, systemic embolization; TREATMENT for venous thrombosis and/or pulmonary embolus. HIGH RISK: Target INR is 2.5-3.5 for patients with mechanical heart valves. Performing Organization Address City/[facility] Cent[facility]ode Phone Number [address] [address] [phone] [place] CBC (Hemogram only) (02/19/2019 5:14 AM CDT)Only the most recent of11 resultswithin the time period is included. WBC 8.2 3.5 - 10.5 K/L [facility] RBC 3.28 (L) 3.93 - 5.22 M/L [facility] Hemoglobin 9.3 (L) 11.2 - 15.7 GM/DL [facility] Hematocrit 29.1 (L) 34.1 - 44.9 % [facility] MCV 88.7 79.4 - 94.8 fL [facility] MCH 28.4 25.6 - 32.2 pg [facility] MCHC 32.0 (L) 32.2 - 35.5 GM/DL [facility] RDW 13.3 11.7 - 14.4 % [facility] Platelets 215 150 - 450 K/CU MM [facility] MPV 10.3 9.4 - 12.3 fL [facility] nRBC 0 0 - 0 /100 WBC [facility] Specimen Blood Performing Organization Address City/State/Zipcode Phone Number [address] [address] CENTER Phosphorus (02/19/2019 5:14 AM CDT)Only the most recent of10 resultswithin the time period is included. Phosphorus 2.5 2.3 - 4.7 mg/dL [facility] Specimen Blood Performing Organization Address City/State/Zipcode Phone Number [address] [address] [phone] CENTER Magnesium (02/19/2019 5:14 AM CDT)Only the most recent of15 resultswithin the time period is included. Magnesium 1.5 (L) 1.6 - 2.6 mg/dL [facility] Specimen Blood Performing Organization Address [facility] Centercode Phone Number [address] [address] CENTER Basic Metabolic Panel (02/19/2019 5:14 AM CDT)Only the most recent of17 resultswithin the time period is included. Sodium 138 136 - 145 meq/L [facility] Potassium 3.6 3.5 - 5.1 meq/L [facility] Chloride 103 98 - 107 meq/L [facility] CO2 29 22 - 29 meq/L [facility] BUN 6 (L) 7 - 21 mg/dL [facility] Creatinine 0.60 0.57 - 1.25 mg/dL [facility] Glucose 93 70 - 105 mg/dL [facility] Calcium 8.4 8.4 - 10.2 mg/dL [facility] EGFR 98Comment: ESTIMATED GFR IS mL/min/1.73 sq m [facility] NOT ACCURATE CREATININE [facility] CLEARANCE IN PREDICTING GLOMERULAR FILTRATION RATE. ESTIMATED GFR IS NOT APPLICABLE FOR DIALYSIS PATIENTS. Specimen Blood Performing Organization Address City/[facility]/Zipcode Phone Number [address] [address] [phone] CENTER Potassium (02/16/2019 5:18 PM CDT)Only the most recent of2 resultswithin the time period is included. Potassium 3.5 3.5 - 5.1 meq/L [facility] Specimen Blood Narrative Performed At Check Serum Phosphorus level 4 hours after IV [facility] phosphorus replacement or 8 hours after PO replacement completed. Check Serum Potassium level 2 hours after oral potassium replacement completed or 30 min after intravenous potassium replacement. Performing Organization Address City/[facility] Centerconm Phone Number [address] [address] [phone] [place] Calcium, Ionized (02/15/2019 9:16 PM CDT)Only the most recent of3 resultswithin the time period is included. Calcium, Ion 1.09 (L) 1.12 - 1.27 mmol/L [facility] pH, Blood 7.42 [facility] Specimen Blood Narrative Performed At Check serum Ionized Calcium level after 4 [facility] hours after IV Calcium replacement. Performing Organization Address [facility] Phone Number [address] [address] [place] TRANSFUSION SERVICE REPORT - SCAN (02/15/2019 6:11 PM CDT)Only the most recent of2 resultswithin the time period is included. Narrative Performed At Potassium-Stat Lab (02/15/2019 2:43 PM CDT)Only the most recent of2 resultswithin the time period is included. Potassium 3.7 3.6 - 5.5 meq/L [facility] Specimen Blood, Arterial Performing Organization Address [facility] Phone Number [address] [address] [place] Sodium Na-Stat Lab (02/15/2019 2:43 PM CDT)Only the most recent of2 resultswithin the time period is included. Sodium 136 135 - 148 meq/L [facility] Specimen Blood, Arterial Performing Organization Address City/[facility] Phone Number [facility] [address] [place] [phone] CENTER Glucose-Stat Lab (02/15/2019 2:43 PM CDT)Only the most recent of2 resultswithin the time period is included. Glucose 148 (H) 70 - 110 mg/dL [facility] Specimen Blood, Arterial Performing Organization Address City/[facility]/Zipcode Phone Number [address] [address] [place] HGB/HCT (H&H)-Stat Lab (02/15/2019 2:43 PM CDT)Only the most recent of2 resultswithin the time period is included. Hemoglobin 10.8 (L) 12.0 - 15.0 g/dL [facility] Hematocrit 32.0 (L) 36.0 - 45.0 % [facility] Specimen Blood, Arterial Performing Organization Address City/[facility]/Zipcode Phone Number [address] [address] [phone] [place] CBC with platelet count + automated diff (02/15/2019 2:43 PM CDT)Only the most recent of5 resultswithin the time period is included. WBC 13.7 (H) 3.5 - 10.5 K/L [facility] RBC 3.36 (L) 3.93 - 5.22 M/L [facility] Hemoglobin 9.7 (L) 11.2 - 15.7 GM/DL [facility] Hematocrit 30.9 (L) 34.1 - 44.9 % [facility] MCV 92.0 79.4 - 94.8 fL [facility] MCH 28.9 25.6 - 32.2 pg [facility] MCHC 31.4 (L) 32.2 - 35.5 GM/DL [facility] RDW 12.8 11.7 - 14.4 % [facility] Platelets 365 150 - 450 K/CU MM [facility] MPV 9.8 9.4 - 12.3 fL [facility] nRBC 0 0 - 0 /100 WBC [facility] % Neutros 75 % [facility] % Lymphs 17 % [facility] % Monos 5 % [facility] % Eos 1 % [facility] % Baso 0 % [facility] # Neutros 10.30 (H) 1.56 - 6.13 K/L [facility] # Lymphs 2.26 1.18 - 3.74 K/L [facility] # Monos 0.64 (H) 0.24 - 0.36 K/L [facility] # Eos 0.18 0.04 - 0.36 K/L [facility] # Baso 0.06 0.01 - 0.08 K/L [facility] Immature 2 (H) 0 - 1 % [facility] Granulocytes-[facility] Specimen Blood Performing Organization Address City/State/Zipcode Phone Number [facility] [address] [place] [address] [phone] CENTER Blood gas, arterial (02/15/2019 2:43 PM CDT)Only the most recent of2 resultswithin the time period is included. pH, Arterial 7.38 7.35 - 7.45 [facility] pCO2, Arterial 35 35 - 45 mmHg [facility] pO2, Arterial 123 (H) 80 - 90 mmHg [facility] O2 Sat, Arterial 98.6 (H) 96.0 - 97.0 % [facility] HCO3, Arterial 21 21 - 29 mmol/L [facility] Base Excess, Arterial -4.6 (L) -2.0 - 3.0 mmol/L [facility] Patient Temperature 34.2 C [facility] FIO2 60.0 % [facility] Specimen Blood, Arterial Performing Organization Address [facility] Centercode Phone Number [address] [address] [place] POC ACTIVATED CLOTTING TIME (02/15/2019 12:02 PM CDT)Only the most recent of3 resultswithin the time period is included. Activated Clotting Time 257Comment: TESTED AT sec [address] [address] Specimen Blood Performing Organization Address [facility] Centerconm Phone Number [address] [address] [place] Urinalysis w/Microscopic (02/14/2019 6:19 PM CDT) Color, UA Colorless [facility] Clarity, UA Clear [facility] Specific [place], UA 1.001 1.001 - 1.035 [facility] pH, UA 7.0 5.0 - 8.0 [facility] Protein, UA Negative Negative [facility] Glucose, UA Negative Negative [facility] Ketones, UA Negative Negative [facility] Bilirubin, UA Negative Negative [facility] Blood, UA Small (A) Negative [facility] Nitrite, UA Negative Negative [facility] Leukocytes, UA Trace (A) Negative [facility] Urobilinogen, UA 0.2 0.2 - 1.0 mg/dL [facility] RBC, UA 2 /HPF [facility] WBC, UA 2 /HPF [facility] Specimen Source Urine, Voided [facility] Specimen Urine Performing Organization Address City/State/Zipcode Phone Number [facility] [address] [place] [address] [phone] CENTER ECG 12 lead (02/14/2019 6:06 PM CDT)Only the most recent of2 resultswithin the time period is included. Specimen Narrative Performed At Ventricular Rate 84 BPM GE MUSE Atrial Rate 84 BPM P-R Interval 132 ms QRS Duration 74 ms Q-T Interval 378 ms QTC Calculation(Bazett) 446 ms P Arjay 28 degrees R Arjay 7 degrees T Arjay 42 degrees Normal sinus rhythm Normal ECG When compared with ECG of 05-FEB-2019 13:41, No significant change was found Confirmed by MD JACOB JOSEPH P ([id number]) on 02/15/2019 4:14:08 PM Procedure Note Interface, External Ris In - 02/15/2019 4:14 PM CDT Ventricular Rate 84 BPM Atrial Rate 84 BPM P-R Interval 132 ms QRS Duration 74 ms Q-T Interval 378 ms QTC Calculation(Bazett) 446 ms P Arjay 28 degrees R Arjay 7 degrees T Arjay 42 degrees Normal sinus rhythm Normal ECG When compared with ECG of 05-FEB-2019 13:41, No significant change was found Confirmed by MD JACOB JOSEPH P ([id number]) on 02/15/2019 4:14:08 PM Performing Organization Address City/[facility] Centercode Phone Number GE MUSE XR chest 2 views (02/14/2019 5:36 PM CDT) Specimen Narrative Performed At FINAL REPORT [facility] EXAM: PA and lateral chest radiograph COMPARISON: February 05, 2019 CLINICAL HISTORY: Preoperative clearance FINDINGS: There is interval development of moderate left pleural effusion with associated atelectasis. The right lung is clear. There is no evidence of pneumothorax. The cardiac size is within normal limits. The regional osseous structures are unremarkable. Signed: Camryn Galdamez MD Report Verified Date/Time:02/14/2019 17:43:10 Reading Location: [facility] Diagnostic Imaging Reading Room - [facility] 1.310.12 Procedure Note Interface, External Ris In - 02/14/2019 5:45 PM CDT FINAL REPORT EXAM: PA and lateral chest radiograph COMPARISON: February 05, 2019 CLINICAL HISTORY: Preoperative clearance FINDINGS: There is interval development of moderate left pleural effusion with associated atelectasis. The right lung is clear. There is no evidence of pneumothorax. The cardiac size is within normal limits. The regional osseous structures are unremarkable. Signed: Camryn Galdamez MD Report Verified Date/Time: 02/14/2019 17:43:10 Reading Location: [facility] Diagnostic Imaging Reading Room - [facility] 1.310.12 Performing Organization Address City/[facility] Centercode Phone Number GE RIS Type and screen, automated (02/14/2019 5:27 PM CDT)Only the most recent of2 resultswithin the time period is included. ABO/RH AUTOMATED (BEAKER) O POSITIVE [facility] Ab Scrn NEGATIVE [facility] Specimen Blood Performing Organization Address [facility] Center[facility] Phone Number [address] [address] HIV-1 Antigen with HIV-1/2 Antibody (02/14/2019 5:27 PM CDT) HIV-1 Antigen with HIV 1&2 NON-REACTIVE Nonreactive [facility] Antibody [facility] Specimen Blood Performing Organization Address [facility]/Zipcode Phone Number [address] [address] CENTER Hepatitis B Panel (02/14/2019 5:27 PM CDT) Hep B Core Total Ab NON-REACTIVE Nonreactive [facility] Hep B S Ab <8.0 <8.0 mIU/mL [facility] hepatitis B Surface Ag NON-REACTIVE Nonreactive [facility] Specimen Blood Performing Organization Address [facility] Centercode Phone Number [address] [address] [phone] [place] Hepatitis C antibody (02/14/2019 5:27 PM CDT) Hepatitis C Ab NON-REACTIVE Nonreactive [facility] Specimen Blood Performing Organization Address [facility] Phone Number [address] [address] [phone] [facility] Reticulocyte count (02/14/2019 5:27 PM CDT) % Retic 2.0 (H) 0.5 - 1.7 % [facility] Specimen Blood Performing Organization Address [facility] Phone Number [address] [address] C[place] Lipase (02/14/2019 5:27 PM CDT) Lipase 202 (H) 8 - 78 U/L [facility] Specimen Blood Performing Organization Address [facility] Phone Number [address] [address] [phone] [facility] Lactate dehydrogenase (LDH) (02/14/2019 5:27 PM CDT) LDH 278 (H) 125 - 220 U/L [facility] Specimen Blood Performing Organization Address [facility] Phone Number [address] [address] [facility] Amylase (02/14/2019 5:27 PM CDT) Amylase 48 25 - 125 U/L [facility] Specimen Blood Performing Organization Address [facility] Phone Number [address] [address] [facility] Hepatic function panel (02/14/2019 5:27 PM CDT) Protein, Total 6.9 6.0 - 8.3 gm/dL [facility] Albumin 3.3 (L) 3.5 - 5.0 g/dL [facility] Total Bilirubin 0.3 0.2 - 1.2 mg/dL [facility] Bilirubin, Direct 0.2 0.1 - 0.5 mg/dL [facility] Alkaline Phosphatase 103 40 - 150 U/L [facility] AST 20 5 - 34 U/L [facility] ALT 16 6 - 55 U/L [facility] Specimen Blood Performing Organization Address City/State/Zipcode Phone Number [facility] [address] [place] [address] CENTER ECHOCARDIOGRAM REPORT - SCAN (02/07/2019 9:22 PM CDT) Narrative Performed At 2D Echo W/Doppler(CW/PW/Color) (02/07/2019 8:47 AM CDT) Ejection Fraction [facility] ECHO HEARTLAB [employer] [facility] Specimen Narrative Performed At Transthoracic Echocardiography Report (TTE) [facility] HEARTLAB [employer] [facility] Demographics Patient NameBAXTER, Date of Study02/07/2019 YAA Female Visit [id number] Unknown Room [id number] Number Date of 4Referring Physician 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 Height: 64 inches Weight: 75.75 kg (167 lbs) BSA: 1.81 m^2 BMI: 28.67 kg/m^2 Summary Normal left ventricular chamber size. Normal wall thickness. Normal overall left ventricular systolic function. No apparent segmental wall motion abnormalities. Estimated LVEF by qualitative assessment is normal (55-60%) . Grade 1 diastolic dysfunction (impaired relaxation and low-normal LA pressure). Estimated peak systolic PA pressure is 25-30 mmHg + RA pressure. A left pleural effusion is noted. Signature Findings Left Ventricle Normal left ventricular chamber size. Normal wall th ickness. Normal overall left ventricular systolic fu nction. No apparent segmental wall motion ab normalities. Es timated LVEF by qualitative assessment is normal (5 5-60%) . Gr alfie 1 diastolic dysfunction (impaired relaxation an d low-normal LA pressure). Left AtriumLA size is normal (16-34 ml/m2) . Right VentricleThe right ventricular chamber size and systolic fu nction are within normal limits. Right Atrium RA size is normal. Aortic Valve Normal AoV structure. Th ere is no aortic regurgitation. Mitral Valve Mild MV leaflet thickening. Tr evelia mitral regurgitation. Tricuspid ValveTV structure is normal. A trace of tricuspid regurgitation. Es timated peak systolic PA pressure is 25-30 mmHg + RA pressure. Pulmonic Valve PV is not well visualized; function appears normal by Doppler visualized. AortaAortic root size (SInus of Valsalva diameter) is no rmal . PericardiumNo significant pericardial effusion is visualized. IVC/SVC/PA/PV/PleuralA left pleural effusion is noted. Th e estimated RA pressure by IVC dynamics 0-5mmHg . Chambers/Structures Left Atrium LA Dimension: 3.05 cmLA Area: 11.01 cm^2 LA Volume: 22.32 ml LA Vol. Index: 12 ml/m^2 Left Ventricle LVIDd: 4.29 cm LVIDs: 2.44 cm LV Septum Diastolic: 1 cm LV PW Diastolic: 1 cm LV FS: 43.1 % Aorta Ao Root S of Rima.: 3.1 cm Doppler/Quantitative Measurements LVOT Peak Velocity: 1.04 m/s Peak Gradient: 4.36 mmHg Mean Velocity: 0.69 m/s Mean Gradient: 2.21 mmHg LVOT VTI: 21.42 cm Procedure Note Interface, External Ris In - 02/07/2019 12:53 PM CDT Transthoracic Echocardiography Report (TTE) Demographics Patient Name PINKY, Date of Study 02/07/2019 YAA Gender Female Visit Number [id number] Race Unknown Room Number 1146 Number Date of 1945 Referring Physician Age 73 year(s) 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 Height: 64 inches Weight: 75.75 kg (167 lbs) BSA: 1.81 m^2 BMI: 28.67 kg/m^2 Summary Normal left ventricular chamber size. Normal wall thickness. Normal overall left ventricular systolic function. No apparent segmental wall motion abnormalities. Estimated LVEF by qualitative assessment is normal (55-60%) . Grade 1 diastolic dysfunction (impaired relaxation and low-normal LA pressure). Estimated peak systolic PA pressure is 25-30 mmHg + RA pressure. A left pleural effusion is noted. Signature Findings Left Ventricle Normal left ventricular chamber size. Normal wall thickness. Normal overall left ventricular systolic function. No apparent segmental wall motion abnormalities. Estimated LVEF by qualitative assessment is normal (55-60%) . Grade 1 diastolic dysfunction (impaired relaxation and low-normal LA pressure). Left Atrium LA size is normal (16-34 ml/m2) . Right Ventricle The right ventricular chamber size and systolic function are within normal limits. Right Atrium RA size is normal. Aortic Valve Normal AoV structure. There is no aortic regurgitation. Mitral Valve Mild MV leaflet thickening. Trace mitral regurgitation. Tricuspid Valve TV structure is normal. A trace of tricuspid regurgitation. Estimated peak systolic PA pressure is 25-30 mmHg + RA pressure. Pulmonic Valve PV is not well visualized; function appears normal by Doppler visualized. Aorta Aortic root size (SInus of Valsalva diameter) is normal . Pericardium No significant pericardial effusion is visualized. IVC/SVC/PA/PV/Pleural A left pleural effusion is noted. The estimated RA pressure by IVC dynamics 0-5mmHg . Chambers/Structures Left Atrium LA Dimension: 3.05 cm LA Area: 11.01 cm^2 LA Volume: 22.32 ml LA Vol. Index: 12 ml/m^2 Left Ventricle LVIDd: 4.29 cm LVIDs: 2.44 cm LV Septum Diastolic: 1 cm LV PW Diastolic: 1 cm LV FS: 43.1 % Aorta Ao Root S of Rima.: 3.1 cm Doppler/Quantitative Measurements LVOT Peak Velocity: 1.04 m/s Peak Gradient: 4.36 mmHg Mean Velocity: 0.69 m/s Mean Gradient: 2.21 mmHg LVOT VTI: 21.42 cm Performing Organization Address City/State/Zipcode Phone Number [facility] [employer] [facility] PERIPHERAL VASCULAR REPORT - SCAN (02/05/2019 9:21 PM CDT) Narrative Performed At Arterial doppler legs bilateral (02/05/2019 12:50 PM CDT) Ejection Fraction [facility] [employer] [facility] Specimen Impressions Performed At Right Impression [facility] [employer] [facility] 1. The common femoral, profunda femoral, superficial femoral, popliteal, posterior tibial, peroneal and anterior tibial arteries are patent with mildly diffuse plaque. There is biphasic and monophasic Doppler waveforms noted in the aforementioned arteries. 2. The PT pressure is 105 mmHg with an VICTOR HUGO of 0.79 and the DP pressure is 102 mmHg with an VICTOR HUGO of 0.77, within moderate obstruction range. 3. Unable to obtain Toe/brachial index due to absent Doppler signal by PPG. 4. The digits have absent flow by PPG waveforms. Left Impression 1. There is an intimal flap with two flow channel noted in the common femoral artery extending to profunda femoral artery. 2. Disturbed color flow with elevated velocities were noted in the distal common femoral ( 222 cm/sec) and proximal profunda (409 cm/sec) arteries. 3. The superficial femoral, popliteal, posterior tibial, peroneal and anterior tibial arteries are patent with mildly diffuse plaque and biphasic Doppler waveforms. 4. The PT pressure is 99 mmHg with an VICTOR HUGO of 0.74 and the DP pressure is 88 mmHg with an VICTOR HUGO of 0.66, within moderate obstruction range. 5. Unable to obtain Toe/brachial index due to absent Doppler signal by PPG. 6. The digits have absent flow by PPG waveforms. Conclusions Summary Arterial pressures and Doppler waveforms were performed bilaterally. Adequate Doppler waveforms were obtained. The right arterial system was patent with mild diffuse plaque, decreased flow velocities and biphasic/monophasic Doppler waveforms, suggestive of more proximal obstruction. The right VICTOR HUGO was within moderate obstruction range. Unable to obtain Toe/brachial index due to absent Doppler signal by PPG. The digits had absent flow by PPG waveform. The left arterial system was positive with dissection from common femoral extending to profunda femoral artery. There was >50% stenosis noted in the distal common femoral and profunda femoral arteries. The superficial femoral, popliteal, posterior tibial, peroneal and anterior tibial arteries were patent with decreased flow velocities and biphasic Doppler waveforms. The left VICTOR HUGO was within moderate obstruction range. Unable to obtain Toe/brachial index due to absent Doppler signal by PPG. The digits had absent flow by PPG waveforms. Signature Velocities are measured in cm/s ; Diameters are measured in cm LE Duplex Measurements Right Left + + + + + + + + + + !Location ! !PSV !EDV !Waveform! !PSV !EDV !Waveform! + + + + + + + + + + !Mid Common Femoral ! !52.3!6.68 !Biphasic ! !82.5! !Biphasic ! + + + + + + + + + + !Prox PFA ! !30.7!10.5 !Biphasic ! !409 !18!Triphasic ! + + + + + + + + + + !Prox SFA ! !36.2!0 !Biphasic! !25.5!0.2 !Biphasic! + + + + + + + + + + !Mid SFA ! !31.2!3.57 !Biphasic ! !28.3! !Biphasic ! + + + + + + + + + + !Dist SFA ! !21!0 !Monophasic! !21.2!0 !Biphasic! + + + + + + + + + + !Prox Popliteal ! !18.8! !Monophasic ! !15.1!0 !Biphasic! + + + + + + + + + + !Dist Popliteal ! !19!0 !Monophasic! !18.3!0.2 !Biphasic! + + + + + + + + + + !Prox BASIN OPERATOR ! !20.5!0 !Monophasic! !22.2!0 !Biphasic! + + + + + + + + + + !Mid BASIN OPERATOR ! !18.1!0 !Monophasic! !19.8!0.39 !Biphasic ! + + + + + + + + + + !Dist BASIN OPERATOR ! !14.8!0 !Monophasic! !13.4!0 !Biphasic! + + + + + + + + + + !Prox DIANA ! !14.7!0.2 !Monophasic! !16.5!0.39 !Biphasic ! + + + + + + + + + + !Mid DIANA ! !12.8! !Monophasic ! !13!0.2 !Biphasic! + + + + + + + + + + !Dist DIANA ! !14.1!0 !Monophasic! !11.8!0 !Biphasic! + + + + + + + + + + !Prox Peroneal ! !15.5!0.39 !Monophasic ! !8.84!0 !Biphasic! + + + + + + + + + + !Mid Peroneal ! !13.4!0.2 !Monophasic! !8.25!0 !Biphasic! + + + + + + + + + + !Dist Peroneal ! !9.82!0 !Monophasic! + + + + + + Narrative Performed At LAB - Lower Extremity Arterial Duplex [facility] ECHO HEARTLAB [employer] [facility] Demographics Patient Hayden Joyce of Study 02/05/2019 73 Visit [id number] Female of 1945 [facility] [id number] Physician Diver Helper JAMI Hammond Physician MD Clemente Win Procedure Type of Study: Extremities Arteries: Lower Extremities Arterial Duplex, ARTERIAL DOPPLER LEGS, BILATERAL. Indications for Study:Leg pain . Patient Status:Routine. Study Location:Portable. Technical Quality:Adequate visualization. - Results were reported to:Dr. Ocampo @ 12:45. Risk Factors History of Disease + + + + !Diagnosis!Yosef e!Comments ! + + + + !History/Risk Factors:!02/05/2019!Type B Aortic dissection ! + + + + Procedure Note Interface, External Ris In - 02/05/2019 4:47 PM CDT [facility] LAB - Lower Extremity Arterial Duplex Demographics Patient Name YAA VALDERRAMA Date of Study 02/05/2019 Age 73 Visit Number [id number] Gender Female Accession Number [id number] Date of 1945 Referring SANTO RIVERA Room Number [id number] Physician Diver Helper Justin Leiva Interpreting Ju Rocha S Physician MD Clemente Win Procedure Type of Study: Extremities Arteries: Lower Extremities Arterial Duplex, ARTERIAL DOPPLER LEGS, BILATERAL. Indications for Study:Leg pain . Patient Status:Routine. Study Location:Portable. Technical Quality:Adequate visualization. - Results were reported to:Dr. Ocampo @ 12:45. Risk Factors History of Disease + + + + !Diagnosis !Date !Comments ! + + + + !History/Risk Factors: !02/05/2019!Type B Aortic dissection ! + + + + Impressions Right Impression 1. The common femoral, profunda femoral, superficial femoral, popliteal, posterior tibial, peroneal and anterior tibial arteries are patent with mildly diffuse plaque. There is biphasic and monophasic Doppler waveforms noted in the aforementioned arteries. 2. The PT pressure is 105 mmHg with an VICTOR HUGO of 0.79 and the DP pressure is 102 mmHg with an VICTOR HUGO of 0.77, within moderate obstruction range. 3. Unable to obtain Toe/brachial index due to absent Doppler signal by PPG. 4. The digits have absent flow by PPG waveforms. Left Impression 1. There is an intimal flap with two flow channel noted in the common femoral artery extending to profunda femoral artery. 2. Disturbed color flow with elevated velocities were noted in the distal common femoral ( 222 cm/sec) and proximal profunda (409 cm/sec) arteries. 3. The superficial femoral, popliteal, posterior tibial, peroneal and anterior tibial arteries are patent with mildly diffuse plaque and biphasic Doppler waveforms. 4. The PT pressure is 99 mmHg with an VICTOR HUGO of 0.74 and the DP pressure is 88 mmHg with an VICTOR HUGO of 0.66, within moderate obstruction range. 5. Unable to obtain Toe/brachial index due to absent Doppler signal by PPG. 6. The digits have absent flow by PPG waveforms. Conclusions Summary Arterial pressures and Doppler waveforms were performed bilaterally. Adequate Doppler waveforms were obtained. The right arterial system was patent with mild diffuse plaque, decreased flow velocities and biphasic/monophasic Doppler waveforms, suggestive of more proximal obstruction. The right VICTOR HUGO was within moderate obstruction range. Unable to obtain Toe/brachial index due to absent Doppler signal by PPG. The digits had absent flow by PPG waveform. The left arterial system was positive with dissection from common femoral extending to profunda femoral artery. There was >50% stenosis noted in the distal common femoral and profunda femoral arteries. The superficial femoral, popliteal, posterior tibial, peroneal and anterior tibial arteries were patent with decreased flow velocities and biphasic Doppler waveforms. The left VICTOR HUGO was within moderate obstruction range. Unable to obtain Toe/brachial index due to absent Doppler signal by PPG. The digits had absent flow by PPG waveforms. Signature Velocities are measured in cm/s ; Diameters are measured in cm LE Duplex Measurements Right Left + + + ------+ + + + +-------- + + !Location ! !PSV !EDV !Waveform ! !PSV !EDV !Waveform ! + + + ------+ + + + +-------- + + !Mid Common Femoral ! !52.3 !6.68 !Biphasic ! !82.5 ! !Biphasic ! + + + ------+ + + + +-------- + + !Prox PFA ! !30.7 !10.5 !Biphasic ! !409 !18 !Triphasic ! + + + ------+ + + + +-------- + + !Prox SFA ! !36.2 !0 !Biphasic ! !25.5 !0.2 !Biphasic ! + + + ------+ + + + +-------- + + !Mid SFA ! !31.2 !3.57 !Biphasic ! !28.3 ! !Biphasic ! + + + ------+ + + + +-------- + + !Dist SFA ! !21 !0 !Monophasic ! !21.2 !0 !Biphasic ! + + + ------+ + + + +-------- + + !Prox Popliteal ! !18.8 ! !Monophasic ! !15.1 !0 !Biphasic ! + + + ------+ + + + +-------- + + !Dist Popliteal ! !19 !0 !Monophasic ! !18.3 !0.2 !Biphasic ! + + + ------+ + + + +-------- + + !Prox BASIN OPERATOR ! !20.5 !0 !Monophasic ! !22.2 !0 !Biphasic ! + + + ------+ + + + +-------- + + !Mid BASIN OPERATOR ! !18.1 !0 !Monophasic ! !19.8 !0.39 !Biphasic ! + + + ------+ + + + +-------- + + !Dist BASIN OPERATOR ! !14.8 !0 !Monophasic ! !13.4 !0 !Biphasic ! + + + ------+ + + + +-------- + + !Prox DIANA ! !14.7 !0.2 !Monophasic ! !16.5 !0.39 !Biphasic ! + + + ------+ + + + +-------- + + !Mid DIANA ! !12.8 ! !Monophasic ! !13 !0.2 !Biphasic ! + + + ------+ + + + +-------- + + !Dist DIANA ! !14.1 !0 !Monophasic ! !11.8 !0 !Biphasic ! + + + ------+ + + + +-------- + + !Prox Peroneal ! !15.5 !0.39 !Monophasic ! !8.84 !0 !Biphasic ! + + + ------+ + + + +-------- + + !Mid Peroneal ! !13.4 !0.2 !Monophasic ! !8.25 !0 !Biphasic ! + + + ------+ + + + +-------- + + !Dist Peroneal ! !9.82 !0 !Monophasic ! + + + ------+ + + Performing Organization Address City/[facility]/Zipcode Phone Number [facility]CHO HEARTLAB [employer] CP[facility] ABORH, manual (02/04/2019 9:32 PM CDT) ABO Grouping O [facility] Rh Factor POS [facility] Specimen Blood Performing Organization Address [facility] Centercode Phone Number [facility] [address] [place] [id number] PT/aPTT (02/04/2019 8:56 PM CDT) Protime 13.3 11.7 - 14.7 seconds [facility] INR 1.0 <=5.9 [facility] PTT <20.0 (L) 22.5 - 36.0 seconds [facility] Specimen Blood Narrative Performed At RECOMMENDED COUMADIN/WARFARIN INR THERAPY [facility] RANGES STANDARD DOSE: 2.0 - 3.0 Includes: PROPHYLAXIS for venous thrombosis, systemic embolization; TREATMENT for venous thrombosis and/or pulmonary embolus. HIGH RISK: Target INR is 2.5-3.5 for patients with mechanical heart valves. Performing Organization Address [facility] Centerconm Phone Number [facility] [address] [place] [address] CENTER after 03/24/2018 Insurance Payer Benefit Plan / Group Subscriber ID Type Phone Address MEDICARE MEDICARE A B xxxxxxxxxxx Medicare AET[employer] - MGD CARE AET[employer] INDEMNITY NON CONTR xxxxxxxxx Comm ([place]) [place] [address] Advance Directives For more information, please contact:[place] [address] [place], [place] [phone] Code Status Date Activated Date Inactivated Comments Full Code 02/18/2019 1:09 AM 02/19/2019 7:23 PM This code status was determined by: Patient Full Code 02/05/2019 3:29 AM 02/18/2019 1:09 AM This code status was determined by: Patient
--- OUTSIDE RECORDS SUMMARY | 2019-03-25 11:59 | XMS REPORT ---
:1945 [facility] Address [address] [place] [id number] Care Team Providers Name Role Phone RAINA RIVERA Unavailable Unavailable Problems This patient has no known problems. Allergies, Adverse Reactions, Alerts This patient has no known allergies or adverse reactions. Medications This patient has no known medications. Results Test Description Test Time Test Comments Text Results Atomic Results Result Comments CTA, CHEST, 2019-02-21 Reason for Addendum BeginsREPORT ABDOMEN - PELVIS, 13:06:00 exam:->s/p TEVAR STATUS:A PATIENT ID: FOR DISSECTION [id number] ADDENDUM: Study reviewed by radiology. Agree with the nonvascular findings as described below. Ultrasound of the pelvis is recommended for further evaluation of the left adnexal cystic lesion. Signed: Devendra Garcia Verified Date/Time: 02/21/2019 13:06:06 Reading Location: [place] [address] Angio Body Reading RoomAddendum EndsFINAL REPORT CT angiography of the thoracoabdominal aorta [...] been described in prior addendum by the Top Spotter Radiologist and dedicated ultrasound scan should be [...] been described in prior addendum, and the Top Spotter Radiologist recommended dedicated pelvic ultrasound scan for further tissue as this is an abnormal finding for patient's age group. 3. An addendum will be dictated regarding the non-vascular findings by the Top Spotter Radiologist. Signed: Shaggy Browneport Verified Date/Time: 02/20/2019 08:12:32 Reading Location: [facility] B1 P047 Cardiology MRI , CHEST, 1 2019-02-19 Reason for FINAL REPORT PATIENT ID: VIEW, NON DEPT 12:36:00 exam:->post [id number] Comparison: opShould this be 02/18/2019 TECHNIQUE: Single performed at the view of the chest FINDINGS: bedside?->Yes Left pleural effusion and adjacent airspace disease again noted. Lungs otherwise clear. Cardiac silhouette is enlarged. Thoracic aortic stent graft noted. Right internal jugular central line is stable. Signed: Sha Escalona MDReport Verified Date/Time: 02/19/2019 12:36:50 Reading Location: [facility] B1 C013X Ortho Consult Reading Room PHORUS 2019-02-19 06:33:00 Test Item Value Reference Range Comments PHOSPHORUS (BEAKER) (test smqy=483) 2.5 mg/dL 2.3-4.7 [id number] 06:33:00 Test Item Value Reference Range Comments MAGNESIUM (BEAKER) (test ilvl=722) 1.5 mg/dL 1.6-2.6 BASIC METABOLIC [id number] 06:33:00 Test Item Value Reference Range Comments SODIUM (BEAKER) (test 138 meq/L 136-145 qwqk=378) POTASSIUM (BEAKER) (test 3.6 meq/L 3.5-5.1 kwcr=354) CHLORIDE (BEAKER) (test 103 meq/L 98-107 mqxl=902) CO2 (BEAKER) (test 29 meq/L 22-29 xoqa=203) BLOOD UREA NITROGEN 6 mg/dL 7-21 (BEAKER) (test juze=945) CREATININE (BEAKER) (test 0.60 mg/dL 0.57-1.25 tdhp=989) GLUCOSE RANDOM (BEAKER) 93 mg/dL 70-105 (test kodf=340) CALCIUM (BEAKER) (test 8.4 mg/dL 8.4-10.2 jusp=296) EGFR (BEAKER) (test 98 mL/min/1.73 sq m ESTIMATED GFR IS NOT ujqb=5738) ACCURATE CREATININE CLEARANCE IN PREDICTING GLOMERULAR FILTRATION RATE. ESTIMATED GFR IS NOT APPLICABLE FOR DIALYSIS PATIENTS. PROTHROMBIN TIME/[id number] 06:20:00 Test Item Value Reference Range Comments PROTIME (BEAKER) (test duit=315) 14.2 seconds 11.7-14.7 INR (BEAKER) (test yoku=411) 1.1 <=5.9 RECOMMENDED COUMADIN/WARFARIN INR THERAPY RANGESSTANDARD DOSE: 2.0 - 3.0 Includes: PROPHYLAXIS forvenous thrombosis, systemic embolization; TREATMENT for venous thrombosis and/or pulmonary embolus.HIGH RISK: Target INR is 2.5-3.5 for patients with mechanical heart valves.[id number] 06:20:00 Test Item Value Reference Range Comments PARTIAL THROMBOPLASTIN TIME (BEAKER) (test 34.6 seconds 22.5-36.0 lrrd=307) CBC (HEMOGRAM ONLY)2019-02-19 05:51:00 Test Item Value Reference Range Comments WHITE BLOOD CELL COUNT (BEAKER) (test fcbx=515) 8.2 K/ L 3.5-10.5 RED BLOOD CELL COUNT (BEAKER) (test rugk=401) 3.28 M/ L 3.93-5.22 HEMOGLOBIN (BEAKER) (test kecs=377) 9.3 GM/DL 11.2-15.7 HEMATOCRIT (BEAKER) (test esus=130) 29.1 % 34.1-44.9 MEAN CORPUSCULAR VOLUME (BEAKER) (test ycno=052) 88.7 fL 79.4-94.8 MEAN CORPUSCULAR HEMOGLOBIN (BEAKER) (test 28.4 pg 25.6-32.2 mvap=946) MEAN CORPUSCULAR HEMOGLOBIN CONC (BEAKER) (test 32.0 GM/DL 32.2-35.5 ndvk=820) RED CELL DISTRIBUTION WIDTH (BEAKER) (test 13.3 % 11.7-14.4 vzqd=239) PLATELET COUNT (BEAKER) (test eprp=902) 215 K/CU MM 150-450 MEAN PLATELET VOLUME (BEAKER) (test fajp=931) 10.3 fL 9.4-12.3 NUCLEATED RED BLOOD CELLS (BEAKER) (test 0 /100 WBC 0-0 qjci=851) RAD, CHEST, 1 VIEW, NON [id number] 08:41:00Reason for exam:->post opShould this be performed at the bedside?->YesFINAL REPORT Portable chest. CLINICAL HISTORY: post op. COMPARISON STUDY: Chest x- ray from yesterday. FINDINGS: The cardiac silhouette is enlarged. An aortic stent graft is seen.The pulmonary parenchyma demonstrates increased interstitial markings with patchy airspace opacitiesin the left side and blunting of the left costophrenic angle, stable from previous. The support lines and tubes are unchanged. No pneumothorax is seen. Degenerative changes are noted. IMPRESSION: No significant change. Signed: Zeus Ruiz MDReport Verified Date/Time: 02/18/2019 08:41:53 Reading Location: [facility] Radiology Reading Room Electronically signed by: ZEUS RUIZ M.D. on 08:41 AMBASIC METABOLIC [id number] 06:08:00 Test Item Value Reference Range Comments SODIUM (BEAKER) (test 139 meq/L 136-145 peah=316) POTASSIUM (BEAKER) (test 3.2 meq/L 3.5-5.1 plaa=870) CHLORIDE (BEAKER) (test 104 meq/L 98-107 gwyb=074) CO2 (BEAKER) (test 30 meq/L 22-29 ewkb=893) BLOOD UREA NITROGEN 8 mg/dL 7-21 (BEAKER) (test zkfp=935) CREATININE (BEAKER) (test 0.60 mg/dL 0.57-1.25 vovu=025) GLUCOSE RANDOM (BEAKER) 102 mg/dL 70-105 (test irvq=257) CALCIUM (BEAKER) (test 7.9 mg/dL 8.4-10.2 gcma=880) EGFR (BEAKER) (test 98 mL/min/1.73 sq m ESTIMATED GFR IS NOT ydnf=5130) ACCURATE CREATININE CLEARANCE IN PREDICTING GLOMERULAR FILTRATION RATE. ESTIMATED GFR IS NOT APPLICABLE FOR DIALYSIS PATIENTS. [id number] 06:07:00 Test Item Value Reference Range Comments PHOSPHORUS (BEAKER) (test fwkb=055) 2.8 mg/dL 2.3-4.7 [id number] 06:07:00 Test Item Value Reference Range Comments MAGNESIUM (BEAKER) (test rwaq=870) 1.9 mg/dL 1.6-2.6 [id number] 05:38:00 Test Item Value Reference Range Comments PARTIAL THROMBOPLASTIN TIME (BEAKER) (test 36.6 seconds 22.5-36.0 blcq=047) PROTHROMBIN TIME/[id number] 05:37:00 Test Item Value Reference Range Comments PROTIME (BEAKER) (test mtkv=623) 15.4 seconds 11.7-14.7 INR (BEAKER) (test fjwi=082) 1.2 <=5.9 RECOMMENDED COUMADIN/WARFARIN INR THERAPY RANGESSTANDARD DOSE: 2.0 - 3.0 Includes: PROPHYLAXIS forvenous thrombosis, systemic embolization; TREATMENT for venous thrombosis and/or pulmonary embolus.HIGH RISK: Target INR is 2.5-3.5 for patients with mechanical heart valves.CBC (HEMOGRAM ONLY)2019-02-18 05:19:00 Test Item Value Reference Range Comments WHITE BLOOD CELL COUNT (BEAKER) (test hkpd=424) 8.1 K/ L 3.5-10.5 RED BLOOD CELL COUNT (BEAKER) (test pnqu=826) 3.14 M/ L 3.93-5.22 HEMOGLOBIN (BEAKER) (test zfsw=739) 9.0 GM/DL 11.2-15.7 HEMATOCRIT (BEAKER) (test xqgd=949) 28.1 % 34.1-44.9 MEAN CORPUSCULAR VOLUME (BEAKER) (test xmes=152) 89.5 fL 79.4-94.8 MEAN CORPUSCULAR HEMOGLOBIN (BEAKER) (test 28.7 pg 25.6-32.2 jlvs=116) MEAN CORPUSCULAR HEMOGLOBIN CONC (BEAKER) (test 32.0 GM/DL 32.2-35.5 xyfo=363) RED CELL DISTRIBUTION WIDTH (BEAKER) (test 13.2 % 11.7-14.4 mqwx=728) PLATELET COUNT (BEAKER) (test tqmj=548) 218 K/CU MM 150-450 MEAN PLATELET VOLUME (BEAKER) (test pdkd=779) 9.8 fL 9.4-12.3 NUCLEATED RED BLOOD CELLS (BEAKER) (test 0 /100 WBC 0-0 yufz=998) [id number] 12:24:00 Test Item Value Reference Range Comments MAGNESIUM (BEAKER) (test jewt=582) 2.3 mg/dL 1.6-2.6 BASIC METABOLIC [id number] 12:24:00 Test Item Value Reference Range Comments SODIUM (BEAKER) (test 136 meq/L 136-145 phpc=482) POTASSIUM (BEAKER) (test 3.7 meq/L 3.5-5.1 xblm=265) CHLORIDE (BEAKER) (test 103 meq/L 98-107 hcmc=839) CO2 (BEAKER) (test 26 meq/L 22-29 dcos=802) BLOOD UREA NITROGEN 8 mg/dL 7-21 (BEAKER) (test bgip=601) CREATININE (BEAKER) (test 0.64 mg/dL 0.57-1.25 yigy=996) GLUCOSE RANDOM (BEAKER) 109 mg/dL 70-105 (test unki=623) CALCIUM (BEAKER) (test 8.3 mg/dL 8.4-10.2 ajri=759) EGFR (BEAKER) (test 91 mL/min/1.73 sq m ESTIMATED GFR IS NOT jjge=4087) ACCURATE CREATININE CLEARANCE IN PREDICTING GLOMERULAR FILTRATION RATE. ESTIMATED GFR IS NOT APPLICABLE FOR DIALYSIS PATIENTS. RAD, CHEST, 1 VIEW, NON [id number] 10:13:00Reason for exam:->post opShould this be performed at the bedside?->YesFINAL REPORT Chest one view. Clinical history: post op Comparison: 2018Discussion: A frontal chest is provided. Cardiomediastinal contours are unchanged. Right IJ line is in stable position. There is mild interstitial prominence. There is a layering left effusion, not significantly changed. Stable retrocardiac opacity. No pneumothorax. Signed: Radha Meléndez MDReport Verified Date/Time: 02/17/2019 10:13:18 Reading Location: [facility] Radiology Reading Room Electronically signed by: RADHA MELÉNDEZ M.D. on 02/17 10:13 AMBASIC METABOLIC [id number] 04:05:00 Test Item Value Reference Range Comments SODIUM (BEAKER) (test 133 meq/L 136-145 wqjv=923) POTASSIUM (BEAKER) (test 3.6 meq/L 3.5-5.1 Specimen slightly tcnj=988) hemolyzed CHLORIDE (BEAKER) (test 100 meq/L 98-107 rkrd=276) CO2 (BEAKER) (test 26 meq/L 22-29 ngxf=299) BLOOD UREA NITROGEN 6 mg/dL 7-21 (BEAKER) (test eqen=590) CREATININE (BEAKER) (test 0.53 mg/dL 0.57-1.25 Specimen slightly ljbo=690) hemolyzed GLUCOSE RANDOM (BEAKER) 105 mg/dL 70-105 (test ljcf=654) CALCIUM (BEAKER) (test 7.7 mg/dL 8.4-10.2 xgfw=173) EGFR (BEAKER) (test 113 mL/min/1.73 sq m ESTIMATED GFR IS NOT nobg=8935) ACCURATE CREATININE CLEARANCE IN PREDICTING GLOMERULAR FILTRATION RATE. ESTIMATED GFR IS NOT APPLICABLE FOR DIALYSIS PATIENTS. [id number] 04:02:00 Test Item Value Reference Range Comments MAGNESIUM (BEAKER) (test 1.8 mg/dL 1.6-2.6 Specimen slightly hemolyzed fjbc=716) [id number] 04:02:00 Test Item Value Reference Range Comments PHOSPHORUS (BEAKER) (test 1.9 mg/dL 2.3-4.7 Specimen slightly hemolyzed qjkk=133) [id number] 03:56:00 Test Item Value Reference Range Comments PARTIAL THROMBOPLASTIN TIME (BEAKER) (test 34.3 seconds 22.5-36.0 ichr=985) PROTHROMBIN TIME/[id number] 03:55:00 Test Item Value Reference Range Comments PROTIME (BEAKER) (test yreh=933) 15.6 seconds 11.7-14.7 INR (BEAKER) (test xuqa=322) 1.2 <=5.9 RECOMMENDED COUMADIN/WARFARIN INR THERAPY RANGESSTANDARD DOSE: 2.0 - 3.0 Includes: PROPHYLAXIS forvenous thrombosis, systemic embolization; TREATMENT for venous thrombosis and/or pulmonary embolus.HIGH RISK: Target INR is 2.5-3.5 for patients with mechanical heart valves.CBC (HEMOGRAM ONLY)2019-02-17 03:48:00 Test Item Value Reference Range Comments WHITE BLOOD CELL COUNT (BEAKER) (test fbcv=942) 10.6 K/ L 3.5-10.5 RED BLOOD CELL COUNT (BEAKER) (test pvom=964) 3.10 M/ L 3.93-5.22 HEMOGLOBIN (BEAKER) (test mvjs=516) 8.8 GM/DL 11.2-15.7 HEMATOCRIT (BEAKER) (test ppbu=357) 27.8 % 34.1-44.9 MEAN CORPUSCULAR VOLUME (BEAKER) (test zfdx=260) 89.7 fL 79.4-94.8 MEAN CORPUSCULAR HEMOGLOBIN (BEAKER) (test 28.4 pg 25.6-32.2 hgzj=380) MEAN CORPUSCULAR HEMOGLOBIN CONC (BEAKER) (test 31.7 GM/DL 32.2-35.5 pgnh=610) RED CELL DISTRIBUTION WIDTH (BEAKER) (test 12.9 % 11.7-14.4 kkjb=581) PLATELET COUNT (BEAKER) (test deyu=648) 258 K/CU MM 150-450 MEAN PLATELET VOLUME (BEAKER) (test ompt=632) 10.3 fL 9.4-12.3 NUCLEATED RED BLOOD CELLS (BEAKER) (test 0 /100 WBC 0-0 imdp=442) [id number] 18:27:00 Test Item Value Reference Range Comments POTASSIUM (BEAKER) (test yapw=711) 3.5 meq/L 3.5-5.1 Check Serum Phosphorus level 4 hours after IV phosphorus replacement or 8 hours after PO replacementcompleted.Check Serum Potassium level 2 hours after oral potassium replacement completed or 30 min after intravenous potassium replacement.[id number] 18:27:00 Test Item Value Reference Range Comments MAGNESIUM (BEAKER) (test viyi=906) 1.6 mg/dL 1.6-2.6 Check Serum Phosphorus level 4 hours after IV phosphorus replacement or 8 hours after PO replacementcompleted.Check Serum Potassium level 2 hours after oral potassium replacement completed or 30 min after intravenous potassium replacement.[id number] 18:27:00 Test Item Value Reference Range Comments PHOSPHORUS (BEAKER) (test lcke=625) 1.8 mg/dL 2.3-4.7 Check Serum Phosphorus level 4 hours after IV phosphorus replacement or 8 hours after PO replacementcompleted.Check Serum Potassium level 2 hours after oral potassium replacement completed or 30 min after intravenous potassium replacement.RAD, CHEST, 1 VIEW, NON [id number] 07:27:00Reason for exam:-> post opShould this be performed at the bedside?->YesFINAL REPORT Portable chest. CLINICAL HISTORY: post op. COMPARISON STUDY: Chest x -ray from yesterday. FINDINGS: The cardiac silhouette is enlarged. The pulmonary parenchyma demonstrate increased interstitial markings with atelectasis or consolidation in the left lung base, more pronounced than on previous with some blunting of the left costophrenic angle. There has been interval extubation. The remaining support lines and tubes are unchanged. No pneumothorax is seen. An aorticstent grafts remains. Degenerative changes are noted. IMPRESSION: Interval extubation. Slight worsening of opacity in the left thorax.. Signed: Zeus Ruiz [facility] Verified Date/Time: 02/16/2019 07:27: 26 Reading Location: [facility] Radiology Reading Room [id number] 05:29 :00 Test Item Value Reference Range Comments PHOSPHORUS (BEAKER) (test zlky=805) 3.5 mg/dL 2.3-4.7 [id number] 05:29:00 Test Item Value Reference Range Comments MAGNESIUM (BEAKER) (test jbmt=967) 2.3 mg/dL 1.6-2.6 BASIC METABOLIC [id number] 05:29:00 Test Item Value Reference Range Comments SODIUM (BEAKER) (test 142 meq/L 136-145 vvaw=220) POTASSIUM (BEAKER) (test 3.9 meq/L 3.5-5.1 yybe=410) CHLORIDE (BEAKER) (test 112 meq/L 98-107 pajh=077) CO2 (BEAKER) (test 24 meq/L 22-29 igfn=746) BLOOD UREA NITROGEN 8 mg/dL 7-21 (BEAKER) (test mjyn=330) CREATININE (BEAKER) (test 0.67 mg/dL 0.57-1.25 cqzi=072) GLUCOSE RANDOM (BEAKER) 148 mg/dL 70-105 (test uqbe=682) CALCIUM (BEAKER) (test 8.3 mg/dL 8.4-10.2 vgtp=966) EGFR (BEAKER) (test 86 mL/min/1.73 sq m ESTIMATED GFR IS NOT sdmh=5824) ACCURATE CREATININE CLEARANCE IN PREDICTING GLOMERULAR FILTRATION RATE. ESTIMATED GFR IS NOT APPLICABLE FOR DIALYSIS PATIENTS. [id number] 05:12:00 Test Item Value Reference Range Comments PARTIAL THROMBOPLASTIN TIME (BEAKER) (test 36.6 seconds 22.5-36.0 rbqc=640) PROTHROMBIN TIME/[id number] 05:11:00 Test Item Value Reference Range Comments PROTIME (BEAKER) (test jamq=806) 15.5 seconds 11.7-14.7 INR (BEAKER) (test xhpu=905) 1.2 <=5.9 RECOMMENDED COUMADIN/WARFARIN INR THERAPY RANGESSTANDARD DOSE: 2.0 - 3.0 Includes: PROPHYLAXIS forvenous thrombosis, systemic embolization; TREATMENT for venous thrombosis and/or pulmonary embolus.HIGH RISK: Target INR is 2.5-3.5 for patients with mechanical heart valves.CBC (HEMOGRAM ONLY)2019-02-16 04:54:00 Test Item Value Reference Range Comments WHITE BLOOD CELL COUNT (BEAKER) (test ehhb=037) 13.8 K/ L 3.5-10.5 RED BLOOD CELL COUNT (BEAKER) (test lgzm=645) 3.57 M/ L 3.93-5.22 HEMOGLOBIN (BEAKER) (test ctde=914) 10.3 GM/DL 11.2-15.7 HEMATOCRIT (BEAKER) (test juin=024) 32.0 % 34.1-44.9 MEAN CORPUSCULAR VOLUME (BEAKER) (test uctn=355) 89.6 fL 79.4-94.8 MEAN CORPUSCULAR HEMOGLOBIN (BEAKER) (test 28.9 pg 25.6-32.2 etso=667) MEAN CORPUSCULAR HEMOGLOBIN CONC (BEAKER) (test 32.2 GM/DL 32.2-35.5 zlhh=352) RED CELL DISTRIBUTION WIDTH (BEAKER) (test 12.5 % 11.7-14.4 jryk=814) PLATELET COUNT (BEAKER) (test knox=595) 383 K/CU MM 150-450 MEAN PLATELET VOLUME (BEAKER) (test glnh=541) 9.6 fL 9.4-12.3 NUCLEATED RED BLOOD CELLS (BEAKER) (test 0 /100 WBC 0-0 qfol=128) [id number] 21:44:00 Test Item Value Reference Range Comments POTASSIUM (BEAKER) (test orvz=634) 3.9 meq/L 3.5-5.1 Check Serum Potassium level 2 hours after oral potassium replacement completed or 30 min after intravenous potassium replacement.[id number] 21:44:00 Test Item Value Reference Range Comments MAGNESIUM (BEAKER) (test vijk=429) 1.8 mg/dL 1.6-2.6 Check Serum Potassium level 2 hours after oral potassium replacement completed or 30 min after intravenous potassium replacement.CALCIUM, [id number] 21: 29:00 Test Item Value Reference Range Comments CALCIUM IONIZED (BEAKER) (test aqlk=810) 1.09 mmol/L 1.12-1.27 PH, BLOOD (BEAKER) (test tyfy=8543) 7.42 Check serum Ionized Calcium level after 4 hours after IV Calcium replacement.[id number] 16:31:00 Test Item Value Reference Range Comments ACTIVATED CLOTTING TIME 257 sec TESTED AT [facility] [address] (BEAKER) (test nsdi=691) [place] [address] [id number] 16:31:00 Test Item Value Reference Range Comments ACTIVATED CLOTTING TIME 274 sec TESTED AT [facility] [address] (BEAKER) (test zemg=573) [place] [address] [id number] 16:31:00 Test Item Value Reference Range Comments ACTIVATED CLOTTING TIME 235 sec TESTED AT [address] (BEAKER) (test jwjs=675) [place] [address] BASIC METABOLIC [id number] 15:50:00 Test Item Value Reference Range Comments SODIUM (BEAKER) (test 138 meq/L 136-145 pwju=166) POTASSIUM (BEAKER) (test 3.9 meq/L 3.5-5.1 hhqf=811) CHLORIDE (BEAKER) (test 113 meq/L 98-107 jlzj=919) CO2 (BEAKER) (test 20 meq/L 22-29 ozam=563) BLOOD UREA NITROGEN 12 mg/dL 7-21 (BEAKER) (test gbky=025) CREATININE (BEAKER) (test 0.65 mg/dL 0.57-1.25 oxtp=695) GLUCOSE RANDOM (BEAKER) 150 mg/dL 70-105 (test szex=500) CALCIUM (BEAKER) (test 7.5 mg/dL 8.4-10.2 snfe=570) EGFR (BEAKER) (test 89 mL/min/1.73 sq m ESTIMATED GFR IS NOT xfhq=6147) ACCURATE CREATININE CLEARANCE IN PREDICTING GLOMERULAR FILTRATION RATE. ESTIMATED GFR IS NOT APPLICABLE FOR DIALYSIS PATIENTS. RAD, CHEST, 1 VIEW, NON [id number] 15:49:00Reason for exam:->Post- opShould this be performed at the bedside?->YesFINAL REPORT Chest one view. Clinical history: Post-op Comparison: 2018Discussion: A frontal chest is provided. ET is 1.7 cm above the bam. A right IJ line projectsover the distal SVC. A stent graft has been placed in the thoracic aorta. Cardiac silhouette is grossly unchanged. Mild interstitial prominence is noted, particularly on the left, which may reflect edema. There is mild left basilar consolidation with a suspected small left effusion. No pneumothorax Signed: Radha Meléndez MDReport Verified Date/Time: 02/15/2019 15:49:49 Reading Location: [facility] B1 C013W Consult Reading Room [id number] 15:43:00 Test Item Value Reference Range Comments PHOSPHORUS (BEAKER) (test hsik=329) 3.1 mg/dL 2.3-4.7 [id number] 15:43:00 Test Item Value Reference Range Comments MAGNESIUM (BEAKER) (test ptqw=399) 1.4 mg/dL 1.6-2.6 RAD, CHEST, 1 VIEW, NON [id number] 15:34:00Reason for exam:->post opFINAL REPORT TECHNIQUE: Frontal chest radiograph dated 02/15/2019. CLINICAL HISTORY: Postop COMPARISON STUDY: Chest radiograph performed earlier the same day IMPRESSION: Life support tubes and lines are unchanged. Descending aortic endovascular graft is unchanged. No change in left- sided lung disease. No pleural effusion or pneumothorax. Cardiomediastinal silhouette is stable in appearance. No pulmonary edema. Bones are osteopenic. Signed: Aramis Talbot MDReport VerifiedDate/Time: 02/15/2019 15:34:57 Reading Location: [facility] Radiology Reading Room Electronically signedby: ARAMIS TALBOT MD on 02/15/2019 03:34 [id number] 15:05:00 Test Item Value Reference Range Comments PARTIAL THROMBOPLASTIN TIME (BEAKER) (test 36.5 seconds 22.5-36.0 irjn=228) PROTHROMBIN TIME/[id number] 15:04:00 Test Item Value Reference Range Comments PROTIME (BEAKER) (test iryo=459) 18.3 seconds 11.7-14.7 INR (BEAKER) (test zbag=850) 1.5 <=5.9 RECOMMENDED COUMADIN/WARFARIN INR THERAPY RANGESSTANDARD DOSE: 2.0 - 3.0 Includes: PROPHYLAXIS forvenous thrombosis, systemic embolization; TREATMENT for venous thrombosis and/or pulmonary embolus.HIGH RISK: Target INR is 2.5-3.5 for patients with mechanical heart valves.CBC W/PLT COUNT & AUTO [id number] 14:58:00 Test Item Value Reference Range Comments WHITE BLOOD CELL COUNT (BEAKER) (test kfjs=588) 13.7 K/ L 3.5-10.5 RED BLOOD CELL COUNT (BEAKER) (test rapp=468) 3.36 M/ L 3.93-5.22 HEMOGLOBIN (BEAKER) (test ykzy=267) 9.7 GM/DL 11.2-15.7 HEMATOCRIT (BEAKER) (test bfoa=691) 30.9 % 34.1-44.9 MEAN CORPUSCULAR VOLUME (BEAKER) (test kqzw=061) 92.0 fL 79.4-94.8 MEAN CORPUSCULAR HEMOGLOBIN (BEAKER) (test 28.9 pg 25.6-32.2 xmwl=661) MEAN CORPUSCULAR HEMOGLOBIN CONC (BEAKER) (test 31.4 GM/DL 32.2-35.5 tnem=987) RED CELL DISTRIBUTION WIDTH (BEAKER) (test 12.8 % 11.7-14.4 rsxz=547) PLATELET COUNT (BEAKER) (test ojyj=754) 365 K/CU MM 150-450 MEAN PLATELET VOLUME (BEAKER) (test oftm=953) 9.8 fL 9.4-12.3 NUCLEATED RED BLOOD CELLS (BEAKER) (test 0 /100 WBC 0-0 jmmv=470) NEUTROPHILS RELATIVE PERCENT (BEAKER) (test 75 % idkd=834) LYMPHOCYTES RELATIVE PERCENT (BEAKER) (test 17 % wewk=478) MONOCYTES RELATIVE PERCENT (BEAKER) (test 5 % kora=174) EOSINOPHILS RELATIVE PERCENT (BEAKER) (test 1 % hbdn=796) BASOPHILS RELATIVE PERCENT (BEAKER) (test 0 % yopb=292) NEUTROPHILS ABSOLUTE COUNT (BEAKER) (test 10.30 K/ L 1.56-6.13 pjho=400) LYMPHOCYTES ABSOLUTE COUNT (BEAKER) (test 2.26 K/ L 1.18-3.74 tkji=800) MONOCYTES ABSOLUTE COUNT (BEAKER) (test 0.64 K/ L 0.24-0.36 drjq=907) EOSINOPHILS ABSOLUTE COUNT (BEAKER) (test 0.18 K/ L 0.04-0.36 yqlm=123) BASOPHILS ABSOLUTE COUNT (BEAKER) (test 0.06 K/ L 0.01-0.08 wdga=062) IMMATURE GRANULOCYTES-RELATIVE PERCENT (BEAKER) 2 % 0-1 (test jkuu=5574) BLOOD GAS, [id number] 14:53:00 Test Item Value Reference Range Comments PH ARTERIAL (BEAKER) (test cuyh=285) 7.38 7.35-7.45 PCO2 ARTERIAL (BEAKER) (test dstu=692) 35 mmHg 35-45 PO2 ARTERIAL (BEAKER) (test wtkn=252) 123 mmHg 80-90 O2 SATURATION ARTERIAL (BEAKER) (test oqxq=904) 98.6 % 96.0-97.0 HCO3 ARTERIAL (BEAKER) (test vveh=868) 21 mmol/L 21-29 BASE EXCESS ARTERIAL (BEAKER) (test juxb=540) -4.6 mmol/L -2.0-3.0 PATIENT TEMPERATURE (BEAKER) (test fyba=9394) 34.2 C FIO2 (BEAKER) (test qshf=3590) 60.0 % GLUCOSE-STAT [id number] 14:53:00 Test Item Value Reference Range Comments GLUCOSE RANDOM (BEAKER) (test fnki=452) 148 mg/dL 70-110 HGB/HCT (H&H) - STAT [id number] 14:53:00 Test Item Value Reference Range Comments HEMOGLOBIN (BEAKER) (test fohr=821) 10.8 g/dL 12.0-15.0 HEMATOCRIT (BEAKER) (test jifl=536) 32.0 % 36.0-45.0 CALCIUM, [id number] 14:53:00 Test Item Value Reference Range Comments CALCIUM IONIZED (BEAKER) (test dpga=704) 1.05 mmol/L 1.12-1.27 PH, BLOOD (BEAKER) (test weyp=0213) 7.34 SODIUM NA-STAT [id number] 14:51:00 Test Item Value Reference Range Comments SODIUM (BEAKER) (test nvhs=297) 136 meq/L 135-148 POTASSIUM-STAT [id number] 14:51:00 Test Item Value Reference Range Comments POTASSIUM (BEAKER) (test pdzo=851) 3.7 meq/L 3.6-5.5 BLOOD GAS, [id number] 10:49:00 Test Item Value Reference Range Comments PH ARTERIAL (BEAKER) (test nxin=852) 7.46 7.35-7.45 PCO2 ARTERIAL (BEAKER) (test otaa=824) 35 mmHg 35-45 PO2 ARTERIAL (BEAKER) (test opjf=791) 395 mmHg 80-90 O2 SATURATION ARTERIAL (BEAKER) (test xfka=019) 99.8 % 96.0-97.0 HCO3 ARTERIAL (BEAKER) (test chiy=380) 24 mmol/L 21-29 BASE EXCESS ARTERIAL (BEAKER) (test fpnd=429) 0.3 mmol/L -2.0-3.0 PATIENT TEMPERATURE (BEAKER) (test snhd=4447) 35.6 C FIO2 (BEAKER) (test pmxg=5654) 100.0 % POTASSIUM-STAT [id number] 10:49:00 Test Item Value Reference Range Comments POTASSIUM (BEAKER) (test cfhh=425) 3.4 meq/L 3.6-5.5 HGB/HCT (H&H) - STAT [id number] 10:49:00 Test Item Value Reference Range Comments HEMOGLOBIN (BEAKER) (test ryub=897) 10.3 g/dL 12.0-15.0 HEMATOCRIT (BEAKER) (test redz=280) 30.0 % 36.0-45.0 CALCIUM, [id number] 10:48:00 Test Item Value Reference Range Comments CALCIUM IONIZED (BEAKER) (test zxqk=484) 1.12 mmol/L 1.12-1.27 PH, BLOOD (BEAKER) (test yvop=2679) 7.44 GLUCOSE-STAT [id number] 10:47:00 Test Item Value Reference Range Comments GLUCOSE RANDOM (BEAKER) (test bsqd=222) 96 mg/dL 70-110 SODIUM NA-STAT [id number] 10:47:00 Test Item Value Reference Range Comments SODIUM (BEAKER) (test czcu=367) 137 meq/L 135-148 BASIC METABOLIC [id number] 05:03:00 Test Item Value Reference Range Comments SODIUM (BEAKER) (test 138 meq/L 136-145 shro=947) POTASSIUM (BEAKER) (test 3.7 meq/L 3.5-5.1 ldok=353) CHLORIDE (BEAKER) (test 107 meq/L 98-107 xhrj=833) CO2 (BEAKER) (test 26 meq/L 22-29 zjro=621) BLOOD UREA NITROGEN 13 mg/dL 7-21 (BEAKER) (test jhua=395) CREATININE (BEAKER) (test 0.69 mg/dL 0.57-1.25 pkei=282) GLUCOSE RANDOM (BEAKER) 93 mg/dL 70-105 (test rfjs=337) CALCIUM (BEAKER) (test 8.7 mg/dL 8.4-10.2 vkcu=669) EGFR (BEAKER) (test 83 mL/min/1.73 sq m ESTIMATED GFR IS NOT wsun=3651) ACCURATE CREATININE CLEARANCE IN PREDICTING GLOMERULAR FILTRATION RATE. ESTIMATED GFR IS NOT APPLICABLE FOR DIALYSIS PATIENTS. CBC (HEMOGRAM ONLY)2019-02-15 04:40:00 Test Item Value Reference Range Comments WHITE BLOOD CELL COUNT (BEAKER) (test addt=369) 6.7 K/ L 3.5-10.5 RED BLOOD CELL COUNT (BEAKER) (test cdsd=464) 3.74 M/ L 3.93-5.22 HEMOGLOBIN (BEAKER) (test mehq=340) 10.5 GM/DL 11.2-15.7 HEMATOCRIT (BEAKER) (test mfwy=938) 33.7 % 34.1-44.9 MEAN CORPUSCULAR VOLUME (BEAKER) (test bygn=560) 90.1 fL 79.4-94.8 MEAN CORPUSCULAR HEMOGLOBIN (BEAKER) (test 28.1 pg 25.6-32.2 qarp=669) MEAN CORPUSCULAR HEMOGLOBIN CONC (BEAKER) (test 31.2 GM/DL 32.2-35.5 qoeb=114) RED CELL DISTRIBUTION WIDTH (BEAKER) (test 12.8 % 11.7-14.4 pogf=402) PLATELET COUNT (BEAKER) (test otzy=826) 382 K/CU MM 150-450 MEAN PLATELET VOLUME (BEAKER) (test balh=243) 10.0 fL 9.4-12.3 NUCLEATED RED BLOOD CELLS (BEAKER) (test 0 /100 WBC 0-0 knxl=899) HEPATITIS B [id number] 19:05:00 Test Item Value Reference Range Comments HEPATITIS B CORE TOTAL ANTIBODY (BEAKER) (test Nonreactive Nonreactive lsqc=267) HEPATITIS B SURFACE ANTIBODY (BEAKER) (test < mIU/mL <8.0 ggdg=347) HEPATITIS B SURFACE ANTIGEN (2) (BEAKER) (test Nonreactive Nonreactive chds=4881) HEPATITIS C [id number] 19:03:00 Test Item Value Reference Range Comments HEPATITIS C ANTIBODY (BEAKER) (test lvlg=512) Nonreactive Nonreactive HIV-1 ANTIGEN WITH HIV-1/2 [id number] 19:03:00 Test Item Value Reference Range Comments HIV-1 ANTIGEN WITH HIV 1\T\2 ANTIBODY (2) Nonreactive Nonreactive (BEAKER) (test mths=9463) URINALYSIS W/ [id number] 18:33:00 Test Item Value Reference Range Comments COLOR (BEAKER) (test esgs=755) Colorless CLARITY (BEAKER) (test swek=910) Clear SPECIFIC GRAVITY UA (BEAKER) (test ervf=792) 1.001 1.001-1.035 PH UA (BEAKER) (test wqmr=755) 7.0 5.0-8.0 PROTEIN UA (BEAKER) (test bezs=943) Negative Negative GLUCOSE UA (BEAKER) (test kqdt=480) Negative Negative KETONES UA (BEAKER) (test yjgq=770) Negative Negative BILIRUBIN UA (BEAKER) (test fzfv=353) Negative Negative BLOOD UA (BEAKER) (test kjny=264) Small Negative NITRITE UA (BEAKER) (test emsp=776) Negative Negative LEUKOCYTE ESTERASE UA (BEAKER) (test qcuo=385) Trace Negative UROBILINOGEN UA (BEAKER) (test pixo=338) 0.2 mg/dL 0.2-1.0 RBC UA (BEAKER) (test jrkn=919) 2 /HPF WBC UA (BEAKER) (test shlr=618) 2 /HPF SOURCE(BEAKER) (test aqsw=3732) Urine, Voided [id number] 18:14:00 Test Item Value Reference Range Comments LIPASE (BEAKER) (test ujtu=425) 202 U/L 8-78 [id number] 18:14:00 Test Item Value Reference Range Comments AMYLASE (BEAKER) (test boxa=383) 48 U/L 25-125 HEPATIC FUNCTION [id number] 18:14:00 Test Item Value Reference Range Comments TOTAL PROTEIN (BEAKER) (test xawd=345) 6.9 gm/dL 6.0-8.3 ALBUMIN (BEAKER) (test ijgv=2218) 3.3 g/dL 3.5-5.0 BILIRUBIN TOTAL (BEAKER) (test jkuq=580) 0.3 mg/dL 0.2-1.2 BILIRUBIN DIRECT (BEAKER) (test cave=487) 0.2 mg/dL 0.1-0.5 ALKALINE PHOSPHATASE (BEAKER) (test nbje=486) 103 U/L 40-150 AST (SGOT) (BEAKER) (test wioh=217) 20 U/L 5-34 ALT (SGPT) (BEAKER) (test rfsw=022) 16 U/L 6-55 LACTATE DEHYDROGENASE (LDH)2019-02-14 18:14:00 Test Item Value Reference Range Comments LACTATE DEHYDROGENASE (BEAKER) (test uzlc=469) 278 U/L 125-220 PROTHROMBIN [id number] 17:51:00 Test Item Value Reference Range Comments PROTIME (BEAKER) (test mehk=341) 14.1 seconds 11.7-14.7 INR (BEAKER) (test xgvh=536) 1.1 <=5.9 RECOMMENDED COUMADIN/WARFARIN INR THERAPY RANGESSTANDARD DOSE: 2.0 - 3.0 Includes: PROPHYLAXIS forvenous thrombosis, systemic embolization; TREATMENT for venous thrombosis and/or pulmonary embolus.HIGH RISK: Target INR is 2.5-3.5 for patients with mechanical heart valves.RETICULOCYTE [id number] 17:44:00 Test Item Value Reference Range Comments RETICULOCYTE COUNT PCT (BEAKER) (test idns=548) 2.0 % 0.5-1.7 RAD, CHEST, 2 [id number] 17:43:00Reason for exam:->Pre-opShould this be performed at the bedside?->YesFINAL REPORT EXAM: PA and lateral chest radiograph COMPARISON: February 05, 2019CLINICAL HISTORY: Preoperative clearance FINDINGS: There is interval development of moderate left pleural effusion with associated atelectasis. The right lung is clear. There is no evidence of pneumothorax. The cardiac size is within normal limits. The regional osseous structures are unremarkable. Signed: Camryn Galdamez MDReport Verified Date/Time: 02/14/2019 17:43:10 Reading Location: [facility] Diagnostic Imaging Reading Room - [facility] 1.310.12 BASI METABOLIC [id number] 04:50:00 Test Item Value Reference Range Comments SODIUM (BEAKER) (test 138 meq/L 136-145 guyk=719) POTASSIUM (BEAKER) (test 3.9 meq/L 3.5-5.1 ehdj=967) CHLORIDE (BEAKER) (test 104 meq/L 98-107 jktx=041) CO2 (BEAKER) (test 25 meq/L 22-29 fuec=518) BLOOD UREA NITROGEN 14 mg/dL 7-21 (BEAKER) (test bscm=528) CREATININE (BEAKER) (test 0.67 mg/dL 0.57-1.25 idvp=106) GLUCOSE RANDOM (BEAKER) 90 mg/dL 70-105 (test lfqe=608) CALCIUM (BEAKER) (test 8.6 mg/dL 8.4-10.2 xmwh=593) EGFR (BEAKER) (test 86 mL/min/1.73 sq m ESTIMATED GFR IS NOT smri=6327) ACCURATE CREATININE CLEARANCE IN PREDICTING GLOMERULAR FILTRATION RATE. ESTIMATED GFR IS NOT APPLICABLE FOR DIALYSIS PATIENTS. CBC (HEMOGRAM ONLY)2019-02-14 04:39:00 Test Item Value Reference Range Comments WHITE BLOOD CELL COUNT (BEAKER) (test ybjo=600) 6.1 K/ L 3.5-10.5 RED BLOOD CELL COUNT (BEAKER) (test xnzr=759) 3.78 M/ L 3.93-5.22 HEMOGLOBIN (BEAKER) (test uuit=766) 10.7 GM/DL 11.2-15.7 HEMATOCRIT (BEAKER) (test ubqq=834) 33.8 % 34.1-44.9 MEAN CORPUSCULAR VOLUME (BEAKER) (test brci=355) 89.4 fL 79.4-94.8 MEAN CORPUSCULAR HEMOGLOBIN (BEAKER) (test 28.3 pg 25.6-32.2 pcwj=101) MEAN CORPUSCULAR HEMOGLOBIN CONC (BEAKER) (test 31.7 GM/DL 32.2-35.5 ylgv=137) RED CELL DISTRIBUTION WIDTH (BEAKER) (test 12.7 % 11.7-14.4 wgve=826) PLATELET COUNT (BEAKER) (test onie=210) 409 K/CU MM 150-450 MEAN PLATELET VOLUME (BEAKER) (test jvfw=427) 9.8 fL 9.4-12.3 NUCLEATED RED BLOOD CELLS (BEAKER) (test 0 /100 WBC 0-0 zypp=620) BASIC METABOLIC [id number] 06:16:00 Test Item Value Reference Range Comments SODIUM (BEAKER) (test 139 meq/L 136-145 yvow=607) POTASSIUM (BEAKER) (test 4.1 meq/L 3.5-5.1 btgg=633) CHLORIDE (BEAKER) (test 105 meq/L 98-107 giov=437) CO2 (BEAKER) (test 27 meq/L 22-29 sifc=115) BLOOD UREA NITROGEN 17 mg/dL 7-21 (BEAKER) (test nvie=968) CREATININE (BEAKER) (test 0.75 mg/dL 0.57-1.25 wddk=321) GLUCOSE RANDOM (BEAKER) 92 mg/dL 70-105 (test cnfn=592) CALCIUM (BEAKER) (test 8.9 mg/dL 8.4-10.2 nygx=919) EGFR (BEAKER) (test 76 mL/min/1.73 sq m ESTIMATED GFR IS NOT bnzu=7174) ACCURATE CREATININE CLEARANCE IN PREDICTING GLOMERULAR FILTRATION RATE. ESTIMATED GFR IS NOT APPLICABLE FOR DIALYSIS PATIENTS. CBC (HEMOGRAM ONLY)2019-02-13 05:45:00 Test Item Value Reference Range Comments WHITE BLOOD CELL COUNT (BEAKER) (test qztg=437) 6.4 K/ L 3.5-10.5 RED BLOOD CELL COUNT (BEAKER) (test mwpu=258) 3.91 M/ L 3.93-5.22 HEMOGLOBIN (BEAKER) (test ogcj=942) 11.1 GM/DL 11.2-15.7 HEMATOCRIT (BEAKER) (test fpym=294) 34.9 % 34.1-44.9 MEAN CORPUSCULAR VOLUME (BEAKER) (test dwrf=461) 89.3 fL 79.4-94.8 MEAN CORPUSCULAR HEMOGLOBIN (BEAKER) (test 28.4 pg 25.6-32.2 msjd=191) MEAN CORPUSCULAR HEMOGLOBIN CONC (BEAKER) (test 31.8 GM/DL 32.2-35.5 ttws=571) RED CELL DISTRIBUTION WIDTH (BEAKER) (test 12.6 % 11.7-14.4 qcfy=131) PLATELET COUNT (BEAKER) (test ultd=324) 410 K/CU MM 150-450 MEAN PLATELET VOLUME (BEAKER) (test urse=464) 9.8 fL 9.4-12.3 NUCLEATED RED BLOOD CELLS (BEAKER) (test 0 /100 WBC 0-0 fqdu=403) BASIC METABOLIC [id number] 08:33:00 Test Item Value Reference Range Comments SODIUM (BEAKER) (test 142 meq/L 136-145 ctdr=664) POTASSIUM (BEAKER) (test 4.3 meq/L 3.5-5.1 irjm=644) CHLORIDE (BEAKER) (test 107 meq/L 98-107 cdza=682) CO2 (BEAKER) (test 27 meq/L 22-29 lvqz=886) BLOOD UREA NITROGEN 13 mg/dL 7-21 (BEAKER) (test mxwe=352) CREATININE (BEAKER) (test 0.74 mg/dL 0.57-1.25 ppdr=153) GLUCOSE RANDOM (BEAKER) 93 mg/dL 70-105 (test mmvk=068) CALCIUM (BEAKER) (test 9.3 mg/dL 8.4-10.2 usgm=934) EGFR (BEAKER) (test 77 mL/min/1.73 sq m ESTIMATED GFR IS NOT suav=6964) ACCURATE CREATININE CLEARANCE IN PREDICTING GLOMERULAR FILTRATION RATE. ESTIMATED GFR IS NOT APPLICABLE FOR DIALYSIS PATIENTS. CBC (HEMOGRAM ONLY)2019-02-12 06:53:00 Test Item Value Reference Range Comments WHITE BLOOD CELL COUNT (BEAKER) (test qmmf=009) 6.4 K/ L 3.5-10.5 RED BLOOD CELL COUNT (BEAKER) (test imqz=745) 4.02 M/ L 3.93-5.22 HEMOGLOBIN (BEAKER) (test corp=899) 11.4 GM/DL 11.2-15.7 HEMATOCRIT (BEAKER) (test lrpw=749) 36.0 % 34.1-44.9 MEAN CORPUSCULAR VOLUME (BEAKER) (test bptc=881) 89.6 fL 79.4-94.8 MEAN CORPUSCULAR HEMOGLOBIN (BEAKER) (test 28.4 pg 25.6-32.2 zusv=078) MEAN CORPUSCULAR HEMOGLOBIN CONC (BEAKER) (test 31.7 GM/DL 32.2-35.5 afgi=971) RED CELL DISTRIBUTION WIDTH (BEAKER) (test 12.7 % 11.7-14.4 hpcd=069) PLATELET COUNT (BEAKER) (test poym=116) 417 K/CU MM 150-450 MEAN PLATELET VOLUME (BEAKER) (test sjhs=257) 9.8 fL 9.4-12.3 NUCLEATED RED BLOOD CELLS (BEAKER) (test 0 /100 WBC 0-0 argz=906) [id number] 07:12:00 Test Item Value Reference Range Comments MAGNESIUM (BEAKER) (test lnmh=177) 1.8 mg/dL 1.6-2.6 BASIC METABOLIC [id number] 07:12:00 Test Item Value Reference Range Comments SODIUM (BEAKER) (test 137 meq/L 136-145 bxql=702) POTASSIUM (BEAKER) (test 4.0 meq/L 3.5-5.1 wkyi=094) CHLORIDE (BEAKER) (test 104 meq/L 98-107 xhwg=656) CO2 (BEAKER) (test 25 meq/L 22-29 nqzb=077) BLOOD UREA NITROGEN 14 mg/dL 7-21 (BEAKER) (test psqu=283) CREATININE (BEAKER) (test 0.73 mg/dL 0.57-1.25 xmwq=117) GLUCOSE RANDOM (BEAKER) 84 mg/dL 70-105 (test cukq=266) CALCIUM (BEAKER) (test 9.1 mg/dL 8.4-10.2 gkcq=784) EGFR (BEAKER) (test 78 mL/min/1.73 sq m ESTIMATED GFR IS NOT htpn=2502) ACCURATE CREATININE CLEARANCE IN PREDICTING GLOMERULAR FILTRATION RATE. ESTIMATED GFR IS NOT APPLICABLE FOR DIALYSIS PATIENTS. CBC (HEMOGRAM ONLY)2019-02-11 06:56:00 Test Item Value Reference Range Comments WHITE BLOOD CELL COUNT (BEAKER) (test lbot=726) 6.7 K/ L 3.5-10.5 RED BLOOD CELL COUNT (BEAKER) (test qszc=817) 4.14 M/ L 3.93-5.22 HEMOGLOBIN (BEAKER) (test zdif=275) 11.6 GM/DL 11.2-15.7 HEMATOCRIT (BEAKER) (test xdds=558) 37.0 % 34.1-44.9 MEAN CORPUSCULAR VOLUME (BEAKER) (test oqsm=911) 89.4 fL 79.4-94.8 MEAN CORPUSCULAR HEMOGLOBIN (BEAKER) (test 28.0 pg 25.6-32.2 hdkx=752) MEAN CORPUSCULAR HEMOGLOBIN CONC (BEAKER) (test 31.4 GM/DL 32.2-35.5 okxm=563) RED CELL DISTRIBUTION WIDTH (BEAKER) (test 12.7 % 11.7-14.4 oksf=256) PLATELET COUNT (BEAKER) (test sfsj=900) 421 K/CU MM 150-450 MEAN PLATELET VOLUME (BEAKER) (test qmlb=820) 10.0 fL 9.4-12.3 NUCLEATED RED BLOOD CELLS (BEAKER) (test 0 /100 WBC 0-0 usdv=638) CTA, CHEST, ABDOMEN - PELVIS, FOR [id number] 11:23:00Reason for exam:- >evaluate aortic dissectionAddendum BeginsREPORT STATUS:A ADDENDUM: Study reviewed by radiology. Agree with the nonvascular findings as described below. Ultrasound of the pelvis is recommended for further evaluation of the left adnexal cystic lesion. Signed: Devendra Garcia MDReport Verified Date/Time: 02/10/2019 11:23:48 Reading Location: [place] [address] Angio Body Reading RoomAddendum EndsFINAL REPORT CT angiography of the thoracoabdominal aorta and pelvic arteries, 07 February 2019 INDICATION: This is a 73 year old female with with a diagnosis for aortic dissection presents forassessment. This study is performed in an attempt to avoid an invasive procedure. Per EPIC, patienthas known aortic dissection, type B distribution. TECHNIQUE: Spiral acquisition before and during intravenous [...] to the contrast sheet scanned in the [facility] for the amount and route of contrast given. This exam was performed according to our departmental dose-optimisation programme, which includes automated exposure control, adjustment of the mA and/ or kV according to patient size and/or use of iterative reconstruction technique. Dose modulation, iterative reconstruction, and/or weight based adjustment of the mA/kV was utilized to reduce the radiation dose to as low as reasonably achievable. FINDINGS: VASCULAR: The central pulmonary artery is normal in calibre. There is no evidence of central pulmonary artery embolism. The cardiac chambers demonstrate normal atrioventricular and ventriculoarterial concordance, and systemic and pulmonary venousreturn. The left ventricle is normal in size. Left atrial prominence is identified. No pericardial effusion is seen. Coronary artery origins are normal and no coronary artery calcification is identified. This is a nongated examination as the diagnosis is type B distribution dissection. The ascending thoracic aorta and transverse arch has no acute pathology identified. Mild ectasia seen in the mid ascending thoracic aorta. Arch vessel branching pattern is normal and the visualised arch vessels are seen to be widely patent proximally. The proximal descending thoracic aorta is unremarkable. The dissection is identified at the juncture of the mid/distal descending thoracic aorta, extending through the entire abdominal aorta, likely involve the left common iliac artery, sparing the left external iliac as well as the left common femoral artery in the right, the dissection extends into the right common iliac, right external iliac, and the right common femoral artery and possibly extends into the origin of the right SFA. The false lumen in the pelvic arteries are thrombosed, however, the pelvic arteries are still seen to be widely patent. The true lumen is the lumen that give rise to the coeliac axis, SMA, and the right renal artery and these arteries are widely patent. The true lumen just above the aortic bifurcation is very small in calibre. The left renal artery and the FRANK arise from the falselumen of the dissection. Partial thrombosis of the false lumen is identified. Quantitative dimensions of the aorta are as follows: 3.1 cm at the sinuses of Valsalva (the sino-tubular junction is preserved); 3.6 x 3.3 cm at the proximal ascending thoracic aorta; 4.0 x 3.9 cm at the mid ascending aorta ; 3.7 x 3.6 cm at the distal ascending aorta; 2.8 cm at the mid transverse arch ; 2.8 cm at the proximal descending aorta; 3.4 x 3.5 cm at the mid descending aorta; 3.5 x 3.5 cm distal descending thoracic aorta. In the abdomen, the aorta measures 2.9 x 3.0 cm at the supra-mesenteric level; 2.8 x 2.6cm at the mesenteric segment; 2.2 cm at the renal segment,; and 1.8 cm at the aortic bifurcation.As described above, the true lumen near the aortic bifurcation, is very small in size. Reference diameter of the left external iliac artery, at image 298, is approximately 6 mm. The diameter of the right external iliac artery, for example at image 309, is approximately 6.2 x 4.0 mm. NON-VASCULAR: Assessment of the thyroid gland is limited. The chest wall and mediastinum appear normal. No significant adenopathy is identified. In the lung windows, no obvious endobronchial lesion is seen, and [id number] left basal pleural effusion is identified with associated atelectatic changes. Some subsegmental atelectatic changes are seen. No pneumothorax is identified. No suspicious pulmonary nodule is noted. In the abdomen, the liver and spleen appears unremarkable. Some hypodensities are seen in the liver, too small to characterize. No abnormal enhancing structure is identified. Small gallstones areseen in the gallbladder with no wall thickening identified. The pancreas appears unremarkable. Adrenal glass are not enlarged. No acute renal pathology is seen and no hydronephrosis or perirenal fluid collection is identified. Subcentimeter hypodensity is identified in the lateral aspect of the left kidney , too small to characterize. Bowel is not well assessed by CT angiography as enteric contrast not given. No obvious bowel dilation is identified. Diffuse diverticular disease is seen with no acute pathology changes present. The bladder is not distended. The uterus is identified. Hypodensities identified in the left adnexa, at image 321, measure 4.4 x 3.2 cm in diameter. This is an abnormal finding in patient's age group. Dedicated pelvic ultrasound scan is recommended for further tissue catheterization and assessment. There is no significant retroperitoneal adenopathy. No free fluid or free air is identified. No acute bony pathology is seen; mild degenerative changes is noted. CONCLUSIONS:1. No acute pathology is identified in the ascending thoracic aorta with minimal ectasia identified at the mid ascending thoracic aorta, measure 4.0 cm in diameter. The transverse arch and proximal descending thoracic aorta is also unremarkable. Type B distribution dissection starting at the juncture of the mid/distal descending thoracic aorta, extending into the entire abdominal aorta, extending into the right common iliac, right external iliac, right common femoral artery and likely also involves the very proximal right SFA. The false lumen in the right pelvic arteries are thrombosed. The dissection flap likely involve the left common iliac artery and the false lumen is also thrombosed. Nevertheless, the pelvic arteries are seen to be patent with no obstructive lesion identified. However, thetrue lumen just above the aortic bifurcation is very small in size, at image 243. Quantitative dimension of the the thoracoabdominal aorta are as described above. 2. Normal coronary artery origins. No obvious coronary artery calcification is identified. 3. No evidence of central pulmonary artery embolism. Flqi-xd-lrnyfxkx left basal pleural effusion. 4. Other findings as described above. 5. Anaddendum will be dictated regarding the non-vascular findings by the [facility] Radiologist. Signed:Shaggy Brown Verified Date/Time: 02/08/2019 07:24:23 Reading Location: [place] [address] Cardiology MRI [id number] 04:02:00 Test Item Value Reference Range Comments MAGNESIUM (BEAKER) (test ssuv=338) 1.8 mg/dL 1.6-2.6 BASIC METABOLIC [id number] 04:02:00 Test Item Value Reference Range Comments SODIUM (BEAKER) (test 136 meq/L 136-145 bqjy=737) POTASSIUM (BEAKER) (test 4.0 meq/L 3.5-5.1 pkim=449) CHLORIDE (BEAKER) (test 104 meq/L 98-107 iujt=578) CO2 (BEAKER) (test 22 meq/L 22-29 ansl=555) BLOOD UREA NITROGEN 16 mg/dL 7-21 (BEAKER) (test vkfx=863) CREATININE (BEAKER) (test 0.75 mg/dL 0.57-1.25 uwet=176) GLUCOSE RANDOM (BEAKER) 90 mg/dL 70-105 (test sedv=300) CALCIUM (BEAKER) (test 9.0 mg/dL 8.4-10.2 mxmm=123) EGFR (BEAKER) (test 76 mL/min/1.73 sq m ESTIMATED GFR IS NOT vffd=2977) ACCURATE CREATININE CLEARANCE IN PREDICTING GLOMERULAR FILTRATION RATE. ESTIMATED GFR IS NOT APPLICABLE FOR DIALYSIS PATIENTS. CBC (HEMOGRAM ONLY)2019-02-10 03:52:00 Test Item Value Reference Range Comments WHITE BLOOD CELL COUNT (BEAKER) (test biks=429) 7.4 K/ L 3.5-10.5 RED BLOOD CELL COUNT (BEAKER) (test wpqf=065) 4.00 M/ L 3.93-5.22 HEMOGLOBIN (BEAKER) (test icpo=625) 11.4 GM/DL 11.2-15.7 HEMATOCRIT (BEAKER) (test yiql=771) 36.0 % 34.1-44.9 MEAN CORPUSCULAR VOLUME (BEAKER) (test fybz=720) 90.0 fL 79.4-94.8 MEAN CORPUSCULAR HEMOGLOBIN (BEAKER) (test 28.5 pg 25.6-32.2 bbuh=155) MEAN CORPUSCULAR HEMOGLOBIN CONC (BEAKER) (test 31.7 GM/DL 32.2-35.5 ziln=144) RED CELL DISTRIBUTION WIDTH (BEAKER) (test 12.8 % 11.7-14.4 ldbt=267) PLATELET COUNT (BEAKER) (test rmja=674) 412 K/CU MM 150-450 MEAN PLATELET VOLUME (BEAKER) (test orvv=664) 10.3 fL 9.4-12.3 NUCLEATED RED BLOOD CELLS (BEAKER) (test 0 /100 WBC 0-0 joze=926) [id number] 11:17:00 Test Item Value Reference Range Comments MAGNESIUM (BEAKER) (test lpvl=246) 1.9 mg/dL 1.6-2.6 BASIC METABOLIC [id number] 11:17:00 Test Item Value Reference Range Comments SODIUM (BEAKER) (test 136 meq/L 136-145 droj=956) POTASSIUM (BEAKER) (test 3.5 meq/L 3.5-5.1 yoih=833) CHLORIDE (BEAKER) (test 102 meq/L 98-107 pogc=613) CO2 (BEAKER) (test 25 meq/L 22-29 zvhz=435) BLOOD UREA NITROGEN 15 mg/dL 7-21 (BEAKER) (test fikl=978) CREATININE (BEAKER) (test 0.76 mg/dL 0.57-1.25 qnmo=648) GLUCOSE RANDOM (BEAKER) 126 mg/dL 70-105 (test awmf=966) CALCIUM (BEAKER) (test 9.0 mg/dL 8.4-10.2 jolr=735) EGFR (BEAKER) (test 74 mL/min/1.73 sq m ESTIMATED GFR IS NOT nkmo=7007) ACCURATE CREATININE CLEARANCE IN PREDICTING GLOMERULAR FILTRATION RATE. ESTIMATED GFR IS NOT APPLICABLE FOR DIALYSIS PATIENTS. CBC (HEMOGRAM ONLY)2019-02-09 10:46:00 Test Item Value Reference Range Comments WHITE BLOOD CELL COUNT (BEAKER) (test lnvy=243) 8.4 K/ L 3.5-10.5 RED BLOOD CELL COUNT (BEAKER) (test zgbe=817) 4.08 M/ L 3.93-5.22 HEMOGLOBIN (BEAKER) (test nrgk=156) 11.8 GM/DL 11.2-15.7 HEMATOCRIT (BEAKER) (test qjnx=222) 36.3 % 34.1-44.9 MEAN CORPUSCULAR VOLUME (BEAKER) (test dykv=303) 89.0 fL 79.4-94.8 MEAN CORPUSCULAR HEMOGLOBIN (BEAKER) (test 28.9 pg 25.6-32.2 urcb=241) MEAN CORPUSCULAR HEMOGLOBIN CONC (BEAKER) (test 32.5 GM/DL 32.2-35.5 hpku=113) RED CELL DISTRIBUTION WIDTH (BEAKER) (test 12.5 % 11.7-14.4 zyqb=655) PLATELET COUNT (BEAKER) (test zzbh=395) 426 K/CU MM 150-450 MEAN PLATELET VOLUME (BEAKER) (test iedx=118) 9.7 fL 9.4-12.3 NUCLEATED RED BLOOD CELLS (BEAKER) (test 0 /100 WBC 0-0 udmw=161) [id number] 06:02:00 Test Item Value Reference Range Comments PHOSPHORUS (BEAKER) (test xxba=329) 3.3 mg/dL 2.3-4.7 [id number] 06:02:00 Test Item Value Reference Range Comments MAGNESIUM (BEAKER) (test jihu=182) 2.0 mg/dL 1.6-2.6 BASIC METABOLIC [id number] 06:02:00 Test Item Value Reference Range Comments SODIUM (BEAKER) (test 139 meq/L 136-145 cxma=203) POTASSIUM (BEAKER) (test 3.7 meq/L 3.5-5.1 ubzb=101) CHLORIDE (BEAKER) (test 104 meq/L 98-107 kmor=479) CO2 (BEAKER) (test 26 meq/L 22-29 capl=791) BLOOD UREA NITROGEN 16 mg/dL 7-21 (BEAKER) (test lzlh=950) CREATININE (BEAKER) (test 0.80 mg/dL 0.57-1.25 lkpn=748) GLUCOSE RANDOM (BEAKER) 85 mg/dL 70-105 (test abzp=044) CALCIUM (BEAKER) (test 9.3 mg/dL 8.4-10.2 bhhf=865) EGFR (BEAKER) (test 70 mL/min/1.73 sq m ESTIMATED GFR IS NOT rvwe=1118) ACCURATE CREATININE CLEARANCE IN PREDICTING GLOMERULAR FILTRATION RATE. ESTIMATED GFR IS NOT APPLICABLE FOR DIALYSIS PATIENTS. CBC W/PLT COUNT & AUTO [id number] 04:46:00 Test Item Value Reference Range Comments WHITE BLOOD CELL COUNT (BEAKER) (test sotz=437) 8.7 K/ L 3.5-10.5 RED BLOOD CELL COUNT (BEAKER) (test aktv=916) 4.26 M/ L 3.93-5.22 HEMOGLOBIN (BEAKER) (test nyvb=341) 12.2 GM/DL 11.2-15.7 HEMATOCRIT (BEAKER) (test etrs=522) 38.7 % 34.1-44.9 MEAN CORPUSCULAR VOLUME (BEAKER) (test zlvx=998) 90.8 fL 79.4-94.8 MEAN CORPUSCULAR HEMOGLOBIN (BEAKER) (test 28.6 pg 25.6-32.2 mftf=537) MEAN CORPUSCULAR HEMOGLOBIN CONC (BEAKER) (test 31.5 GM/DL 32.2-35.5 letj=141) RED CELL DISTRIBUTION WIDTH (BEAKER) (test 12.9 % 11.7-14.4 qjjq=727) PLATELET COUNT (BEAKER) (test hpys=608) 486 K/CU MM 150-450 MEAN PLATELET VOLUME (BEAKER) (test rusn=303) 9.5 fL 9.4-12.3 NUCLEATED RED BLOOD CELLS (BEAKER) (test 0 /100 WBC 0-0 otlr=534) NEUTROPHILS RELATIVE PERCENT (BEAKER) (test 59 % eppv=808) LYMPHOCYTES RELATIVE PERCENT (BEAKER) (test 26 % bmcu=352) MONOCYTES RELATIVE PERCENT (BEAKER) (test 12 % wboc=761) EOSINOPHILS RELATIVE PERCENT (BEAKER) (test 3 % wjnp=063) BASOPHILS RELATIVE PERCENT (BEAKER) (test 1 % wsrc=194) NEUTROPHILS ABSOLUTE COUNT (BEAKER) (test 5.11 K/ L 1.56-6.13 mgpo=718) LYMPHOCYTES ABSOLUTE COUNT (BEAKER) (test 2.24 K/ L 1.18-3.74 rqra=699) MONOCYTES ABSOLUTE COUNT (BEAKER) (test 1.02 K/ L 0.24-0.36 fdiu=367) EOSINOPHILS ABSOLUTE COUNT (BEAKER) (test 0.22 K/ L 0.04-0.36 ivbp=493) BASOPHILS ABSOLUTE COUNT (BEAKER) (test 0.06 K/ L 0.01-0.08 aqwg=404) IMMATURE GRANULOCYTES-RELATIVE PERCENT (BEAKER) 1 % 0-1 (test zndk=0114) [id number] 05:37:00 Test Item Value Reference Range Comments MAGNESIUM (BEAKER) (test 2.2 mg/dL 1.6-2.6 Specimen slightly hemolyzed hvpq=393) [id number] 05:37:00 Test Item Value Reference Range Comments PHOSPHORUS (BEAKER) (test 3.8 mg/dL 2.3-4.7 Specimen slightly hemolyzed hlim=306) BASIC METABOLIC [id number] 05:37:00 Test Item Value Reference Range Comments SODIUM (BEAKER) (test 139 meq/L 136-145 hpvk=171) POTASSIUM (BEAKER) (test 4.3 meq/L 3.5-5.1 Specimen slightly nymu=853) hemolyzed CHLORIDE (BEAKER) (test 103 meq/L 98-107 ehky=356) CO2 (BEAKER) (test 26 meq/L 22-29 flmn=041) BLOOD UREA NITROGEN 9 mg/dL 7-21 (BEAKER) (test mdmk=036) CREATININE (BEAKER) (test 0.76 mg/dL 0.57-1.25 Specimen slightly jrsw=125) hemolyzed GLUCOSE RANDOM (BEAKER) 84 mg/dL 70-105 (test tkpp=968) CALCIUM (BEAKER) (test 9.7 mg/dL 8.4-10.2 yula=016) EGFR (BEAKER) (test 74 mL/min/1.73 sq m ESTIMATED GFR IS NOT uykz=8415) ACCURATE CREATININE CLEARANCE IN PREDICTING GLOMERULAR FILTRATION RATE. ESTIMATED GFR IS NOT APPLICABLE FOR DIALYSIS PATIENTS. CBC W/PLT COUNT & AUTO [id number] 04:41:00 Test Item Value Reference Range Comments WHITE BLOOD CELL COUNT (BEAKER) (test crsu=173) 8.8 K/ L 3.5-10.5 RED BLOOD CELL COUNT (BEAKER) (test zios=734) 3.95 M/ L 3.93-5.22 HEMOGLOBIN (BEAKER) (test fbph=016) 11.3 GM/DL 11.2-15.7 HEMATOCRIT (BEAKER) (test lwnz=133) 35.7 % 34.1-44.9 MEAN CORPUSCULAR VOLUME (BEAKER) (test mhym=531) 90.4 fL 79.4-94.8 MEAN CORPUSCULAR HEMOGLOBIN (BEAKER) (test 28.6 pg 25.6-32.2 jsgr=573) MEAN CORPUSCULAR HEMOGLOBIN CONC (BEAKER) (test 31.7 GM/DL 32.2-35.5 jnht=530) RED CELL DISTRIBUTION WIDTH (BEAKER) (test 13.0 % 11.7-14.4 eyku=334) PLATELET COUNT (BEAKER) (test pdhg=416) 481 K/CU MM 150-450 MEAN PLATELET VOLUME (BEAKER) (test moht=743) 9.5 fL 9.4-12.3 NUCLEATED RED BLOOD CELLS (BEAKER) (test 0 /100 WBC 0-0 snby=337) NEUTROPHILS RELATIVE PERCENT (BEAKER) (test 61 % vmyd=827) LYMPHOCYTES RELATIVE PERCENT (BEAKER) (test 26 % knfy=252) MONOCYTES RELATIVE PERCENT (BEAKER) (test 10 % laxh=382) EOSINOPHILS RELATIVE PERCENT (BEAKER) (test 2 % hspu=194) BASOPHILS RELATIVE PERCENT (BEAKER) (test 1 % znjg=144) NEUTROPHILS ABSOLUTE COUNT (BEAKER) (test 5.32 K/ L 1.56-6.13 cycv=996) LYMPHOCYTES ABSOLUTE COUNT (BEAKER) (test 2.32 K/ L 1.18-3.74 lrna=798) MONOCYTES ABSOLUTE COUNT (BEAKER) (test 0.86 K/ L 0.24-0.36 qsuj=241) EOSINOPHILS ABSOLUTE COUNT (BEAKER) (test 0.16 K/ L 0.04-0.36 ccux=856) BASOPHILS ABSOLUTE COUNT (BEAKER) (test 0.05 K/ L 0.01-0.08 lbxy=824) IMMATURE GRANULOCYTES-RELATIVE PERCENT (BEAKER) 1 % 0-1 (test uhnd=9939) CBC W/PLT COUNT & AUTO [id number] 05:55:00 Test Item Value Reference Range Comments WHITE BLOOD CELL COUNT (BEAKER) (test gkqa=087) 7.6 K/ L 3.5-10.5 RED BLOOD CELL COUNT (BEAKER) (test iycq=535) 4.16 M/ L 3.93-5.22 HEMOGLOBIN (BEAKER) (test wmlt=172) 11.9 GM/DL 11.2-15.7 HEMATOCRIT (BEAKER) (test rbav=236) 37.0 % 34.1-44.9 MEAN CORPUSCULAR VOLUME (BEAKER) (test pndm=134) 88.9 fL 79.4-94.8 MEAN CORPUSCULAR HEMOGLOBIN (BEAKER) (test 28.6 pg 25.6-32.2 zvma=942) MEAN CORPUSCULAR HEMOGLOBIN CONC (BEAKER) (test 32.2 GM/DL 32.2-35.5 sccq=735) RED CELL DISTRIBUTION WIDTH (BEAKER) (test 13.0 % 11.7-14.4 rufe=831) PLATELET COUNT (BEAKER) (test myzy=489) 508 K/CU MM 150-450 MEAN PLATELET VOLUME (BEAKER) (test uxcn=258) 9.4 fL 9.4-12.3 NUCLEATED RED BLOOD CELLS (BEAKER) (test 0 /100 WBC 0-0 dpub=942) NEUTROPHILS RELATIVE PERCENT (BEAKER) (test 67 % wtxu=608) LYMPHOCYTES RELATIVE PERCENT (BEAKER) (test 21 % namh=361) MONOCYTES RELATIVE PERCENT (BEAKER) (test 10 % bccr=893) EOSINOPHILS RELATIVE PERCENT (BEAKER) (test 1 % vkvg=862) BASOPHILS RELATIVE PERCENT (BEAKER) (test 0 % jwjk=938) NEUTROPHILS ABSOLUTE COUNT (BEAKER) (test 5.07 K/ L 1.56-6.13 eeqk=799) LYMPHOCYTES ABSOLUTE COUNT (BEAKER) (test 1.57 K/ L 1.18-3.74 pakw=044) MONOCYTES ABSOLUTE COUNT (BEAKER) (test 0.79 K/ L 0.24-0.36 ieuk=735) EOSINOPHILS ABSOLUTE COUNT (BEAKER) (test 0.10 K/ L 0.04-0.36 vfud=439) BASOPHILS ABSOLUTE COUNT (BEAKER) (test 0.03 K/ L 0.01-0.08 olzw=363) IMMATURE GRANULOCYTES-RELATIVE PERCENT (BEAKER) 1 % 0-1 (test ntgd=2485) [id number] 05:41:00 Test Item Value Reference Range Comments PHOSPHORUS (BEAKER) (test mumr=928) 3.5 mg/dL 2.3-4.7 [id number] 05:41:00 Test Item Value Reference Range Comments MAGNESIUM (BEAKER) (test twgr=456) 1.8 mg/dL 1.6-2.6 BASIC METABOLIC [id number] 05:41:00 Test Item Value Reference Range Comments SODIUM (BEAKER) (test 138 meq/L 136-145 zaks=840) POTASSIUM (BEAKER) (test 3.7 meq/L 3.5-5.1 pmvz=801) CHLORIDE (BEAKER) (test 103 meq/L 98-107 zmhe=790) CO2 (BEAKER) (test 26 meq/L 22-29 curc=282) BLOOD UREA NITROGEN 10 mg/dL 7-21 (BEAKER) (test aozm=304) CREATININE (BEAKER) (test 0.68 mg/dL 0.57-1.25 jxgm=551) GLUCOSE RANDOM (BEAKER) 102 mg/dL 70-105 (test qlil=635) CALCIUM (BEAKER) (test 9.4 mg/dL 8.4-10.2 vgfs=796) EGFR (BEAKER) (test 85 mL/min/1.73 sq m ESTIMATED GFR IS NOT xqyd=7984) ACCURATE CREATININE CLEARANCE IN PREDICTING GLOMERULAR FILTRATION RATE. ESTIMATED GFR IS NOT APPLICABLE FOR DIALYSIS PATIENTS. RAD, CHEST, 1 VIEW, NON [id number] 00:42:00Reason for exam:->evaluate effusionShould this be performed at the bedside?->YesFINAL REPORT INDICATION: evaluate effusion COMPARISON: None TECHNIQUE: Singlefrontal view of the chest. FINDINGS: Lungs and pleura: Clear lungs. No effusion.Heart and mediastinum: Normal heart size. Unremarkable mediastinal contours.Osseous structures: No acute abnormality.Other: None. IMPRESSION: No acute intrathoracic abnormality. Signed: Verona Wiseman MDReport Verified Date/ Time: 02/05/2019 00:42:32 Reading Location: [address] Neuro Reading Room BASIC METABOLIC [id number] 21:52:00 Test Item Value Reference Range Comments SODIUM (BEAKER) (test 137 meq/L 136-145 dmcx=345) POTASSIUM (BEAKER) (test 4.1 meq/L 3.5-5.1 mxfh=153) CHLORIDE (BEAKER) (test 103 meq/L 98-107 lqix=527) CO2 (BEAKER) (test 22 meq/L 22-29 gezj=037) BLOOD UREA NITROGEN 11 mg/dL 7-21 (BEAKER) (test jetn=564) CREATININE (BEAKER) (test 0.70 mg/dL 0.57-1.25 ucql=541) GLUCOSE RANDOM (BEAKER) 114 mg/dL 70-105 (test xduj=067) CALCIUM (BEAKER) (test 9.3 mg/dL 8.4-10.2 dzfu=028) EGFR (BEAKER) (test 82 mL/min/1.73 sq m ESTIMATED GFR IS NOT zogv=9307) ACCURATE CREATININE CLEARANCE IN PREDICTING GLOMERULAR FILTRATION RATE. ESTIMATED GFR IS NOT APPLICABLE FOR DIALYSIS PATIENTS. [id number] 21:43:00 Test Item Value Reference Range Comments PROTIME (BEAKER) (test qvsb=430) 13.3 seconds 11.7-14.7 INR (BEAKER) (test xlio=280) 1.0 <=5.9 PARTIAL THROMBOPLASTIN TIME (BEAKER) (test < seconds 22.5-36.0 gqof=239) RECOMMENDED COUMADIN/WARFARIN INR THERAPY RANGESSTANDARD DOSE: 2.0 - 3.0 Includes: PROPHYLAXIS forvenous thrombosis, systemic embolization; TREATMENT for venous thrombosis and/or pulmonary embolus.HIGH RISK: Target INR is 2.5-3.5 for patients with mechanical heart valves.[id number] 21:39:00 Test Item Value Reference Range Comments PHOSPHORUS (BEAKER) (test tlfi=171) 3.2 mg/dL 2.3-4.7 [id number] 21:39:00 Test Item Value Reference Range Comments MAGNESIUM (BEAKER) (test ljgz=935) 2.5 mg/dL 1.6-2.6 PROTHROMBIN [id number] 21:37:00 Test Item Value Reference Range Comments PROTIME (BEAKER) (test skis=129) 13.3 seconds 11.7-14.7 INR (BEAKER) (test dxpw=001) 1.0 <=5.9 RECOMMENDED COUMADIN/WARFARIN INR THERAPY RANGESSTANDARD DOSE: 2.0 - 3.0 Includes: PROPHYLAXIS forvenous thrombosis, systemic embolization; TREATMENT for venous thrombosis and/or pulmonary embolus.HIGH RISK: Target INR is 2.5-3.5 for patients with mechanical heart valves.CBC W/PLT COUNT & AUTO [id number] 21:23:00 Test Item Value Reference Range Comments WHITE BLOOD CELL COUNT (BEAKER) (test yzkb=675) 7.6 K/ L 3.5-10.5 RED BLOOD CELL COUNT (BEAKER) (test fvrs=856) 4.50 M/ L 3.93-5.22 HEMOGLOBIN (BEAKER) (test zekq=130) 13.0 GM/DL 11.2-15.7 HEMATOCRIT (BEAKER) (test ppux=983) 40.7 % 34.1-44.9 MEAN CORPUSCULAR VOLUME (BEAKER) (test vtro=948) 90.4 fL 79.4-94.8 MEAN CORPUSCULAR HEMOGLOBIN (BEAKER) (test 28.9 pg 25.6-32.2 ybuz=727) MEAN CORPUSCULAR HEMOGLOBIN CONC (BEAKER) (test 31.9 GM/DL 32.2-35.5 owwo=115) RED CELL DISTRIBUTION WIDTH (BEAKER) (test 12.8 % 11.7-14.4 pepw=136) PLATELET COUNT (BEAKER) (test dgje=547) 519 K/CU MM 150-450 MEAN PLATELET VOLUME (BEAKER) (test ahma=063) 9.6 fL 9.4-12.3 NUCLEATED RED BLOOD CELLS (BEAKER) (test 0 /100 WBC 0-0 sqip=106) NEUTROPHILS RELATIVE PERCENT (BEAKER) (test 63 % oqno=883) LYMPHOCYTES RELATIVE PERCENT (BEAKER) (test 24 % ilbi=237) MONOCYTES RELATIVE PERCENT (BEAKER) (test 10 % dgsy=908) EOSINOPHILS RELATIVE PERCENT (BEAKER) (test 1 % whfh=116) BASOPHILS RELATIVE PERCENT (BEAKER) (test 1 % kfsa=554) NEUTROPHILS ABSOLUTE COUNT (BEAKER) (test 4.80 K/ L 1.56-6.13 ggvw=914) LYMPHOCYTES ABSOLUTE COUNT (BEAKER) (test 1.86 K/ L 1.18-3.74 dysb=644) MONOCYTES ABSOLUTE COUNT (BEAKER) (test 0.74 K/ L 0.24-0.36 seia=356) EOSINOPHILS ABSOLUTE COUNT (BEAKER) (test 0.09 K/ L 0.04-0.36 mixm=425) BASOPHILS ABSOLUTE COUNT (BEAKER) (test 0.05 K/ L 0.01-0.08 aroz=049) IMMATURE GRANULOCYTES-RELATIVE PERCENT (BEAKER) 1 % 0-1 (test yusb=1554)
[2019-03-25 12:50] LABS: Absolute Lymphocytes (CBC) 1.6 K/uL (0.7-4.9); Absolute Monocytes 0.7 K/uL (0.1-1.3); Absolute Neutrophil 6.4 K/uL (1.8-8.0); Basophils % 0.3 % (0-1.3); Eosinophils % 0.6 % (0-4.4); Hematocrit 35.4 % (36.0-45.0); MPV 7.5 fL (7.6-11.3); RBC Red Blood Cell Count 4.23 M/uL (3.86-4.86)
[2019-03-25 13:00] LABS: Bilirubin Direct 0.1 mg/dL (0-0.2); Bilirubin Total 0.5 mg/dL (0.2-1.0); Potassium 3.5 mmol/L (3.5-5.1); Protein, Total 7.9 g/dL (6.4-8.2)
--- NOTE | 2019-03-25 13:38 | RAD REPORT ---
EXAM DESCRIPTION: CT - Chest Abdomen Pelvis W Cont - 03/25/2019 1:18 pm CLINICAL HISTORY: Chest and abdomen pain. GI Bleed and recent aortic splint COMPARISON: Chest Abdomen Pelvis W Cont dated 02/04/2019 TECHNIQUE: Approximately 100 mL nonionic IV contrast was administered to the patient. All CT scans are performed using dose optimization technique as appropriate and may include automated exposure control or mA/KV adjustment according to patient size. FINDINGS: A left pleural effusion is present with atelectasis in the left lung base. This pleural ef fusion is similar to the prior examination and may be chronic in this patient.The right lung appears clear.Aortic stent is present in the thoracic aorta.The abdominal aortic dissection is still present extending into the left common iliac. Left sided renal stent has been placed traversing the intimal f lap. Several small gallstones are present in the gallbladder. No aggressive liver mass. Small liver cysts are present. The spleen, adrenal glands, pancreas and kidneys are within normal limits. No bowel obstruction, free air, free fluid or abscess. Normal appendix. Prominent diverticulosis of t he sigmoid colon is seen. No pathologic lymphadenopathy in the abdomen or pelvis. 4 cm left adnexal c yst noted. No fracture or aggressive marrow pattern observed. IMPRESSION: Previously noted thoracic aortic dissection is been repaired by means of a stent. No unu sual or unexpected finding related to this. Abdominal aortic dissection persists without acute finding. A left renal stent has been placed odalis sing the intimal flap. No acute finding related to this. Prominent sigmoid diverticulosis coli. Cholelithiasis. Chronic left pleural effusion.
[2019-03-25 14:04] LABS: Protime INR 1.16
[2019-03-25 14:16] LABS: Troponin (Emerg Dept Use Only) 0.02 ng/mL (0.0-0.045)
--- NOTE | 2019-03-25 15:02 | EKG ---
Test Date: 2019-03-25 Test Time: 13:36:26 [employer] Salesperson: RENETTA MEASUREMENT RESULTS: Intervals: Rate: 102 WV: 126 QRSD: 74 QT: 366 QTc: 477 Rose: P: 38 WV: 126 QRS: 36 T: 52 INTERPRETIVE STATEMENTS: Sinus tachycardia with occasional premature ventricular complexes Cannot rule out Anterior infarct, age undetermined Abnormal ECG Compared to ECG 08/23/1993 07:28:00 Ventricular premature complex(es) now present Myocardial infarct finding now present Sinus rhythm no longer present Electronically Signed On 03-25-19 15:01:45 CDT by Ottoniel Recinos
--- NOTE | 2019-03-25 15:25 | EDPHYS ---
Physician Documentation [facility] Name: Marlene Valderrama Age: 73 yrs Sex: Female : 1945 Arrival Date: 03/25/2019 Time: 10:05 Bed 13 Private MD: Jey Mora B ED Physician Sukhjinder Prescott HPI: 03/25 17:45 This 73 yrs old Female presents to ER via Wheelchair with complaints of kdr Bloody Stools. 17:45 The patient presents to the emergency department with rectal bleeding. kdr 17:46 The patient was sent from Dr. Mora' office for possible GI bleeding and weakness. Dr. bernard Mora was worried that she nay be having GI bleeding and diminished Hgb. She has been having dark stools and feeling weak. Onset: The symptoms/episode began/occurred gradually, 3 week(s) ago. Severity of symptoms: At their worst the symptoms were mild in the emergency department the symptoms are unchanged. The patient has not experienced similar symptoms in the past. The patient has been recently seen by a physician: the patient's primary care provider. Historical: - Allergies: 10:18 No Known Drug Allergies; sv - PSHx: 10:18 R wrist; Thyroidectomy; sv - Immunization history:: Adult Immunizations up to date. - Social history:: Smoking status: Patient/guardian denies using tobacco. - Ebola Screening: : No symptoms or risks identified at this time. ROS: 17:46 Constitutional: Negative for fever, chills, and weight loss, Eyes: Negative for injury, kdr pain, redness, and discharge, ENT: Negative for injury, pain, and discharge, Neck: Negative for injury, pain, and swelling, Cardiovascular: Negative for chest pain, palpitations, and edema, Abdomen/GI: Negative for abdominal pain, nausea, vomiting, diarrhea, and constipation - she has had dark stools Back: Negative for injury and pain, : Negative for injury, bleeding, discharge, and swelling, MS/Extremity: Negative for injury and deformity, Skin: Negative for injury, rash, and discoloration, Neuro: Negative for headache, weakness, numbness, tingling, and seizure activity. Psych: Negative for depression, anxiety, suicide ideation, homicidal ideation, and hallucinations, Allergy/Immunology: Negative for hives, rash, and allergies, Endocrine: Negative for neck swelling, polydipsia, polyuria, polyphagia, and marked weight changes, Hematologic/Lymphatic: Negative for swollen nodes, abnormal bleeding, and unusual bruising. 17:46 Respiratory: Positive for Slight dyspnea. Exam: 17:46 Constitutional: This is a well developed, well nourished patient who is awake, alert, kdr and in no acute distress. Head/Face: Normocephalic, atraumatic. Eyes: Pupils equal round and reactive to light, extra-ocular motions intact. Lids and lashes normal. Conjunctiva and sclera are non-icteric and not injected. Cornea within normal limits. Periorbital areas with no swelling, redness, or edema. Neck: Trachea midline, no thyromegaly or masses palpated, and no cervical lymphadenopathy. Supple, full range of motion without nuchal rigidity, or vertebral point tenderness. No Meningismus. Chest/axilla: Normal chest wall appearance and motion. Nontender with no deformity. No lesions are appreciated. Cardiovascular: Regular rate and rhythm with a normal S1 and S2. No gallops, murmurs, or rubs. Normal PMI, no JVD. No pulse deficits. Respiratory: Lungs have equal breath sounds bilaterally, clear to auscultation and percussion. No rales, rhonchi or wheezes noted. No increased work of breathing, no retractions or nasal flaring. Abdomen/GI: Soft, non-tender, with normal bowel sounds. No distension or tympany. No guarding or rebound. No evidence of tenderness throughout. Back: No spinal tenderness. No costovertebral tenderness. Full range of motion. Skin: Warm, dry with normal turgor. Normal color with no rashes, no lesions, and no evidence of cellulitis. MS/ Extremity: Pulses equal, no cyanosis. Neurovascular intact. Full, normal range of motion. Neuro: Awake and alert, GCS 15, oriented to person, place, time, and situation. Cranial nerves II-XII grossly intact. Motor strength 5/5 in all extremities. Sensory grossly intact. Cerebellar exam normal. Normal gait. Psych: Awake, alert, with orientation to person, place and time. Behavior, mood, and affect are within normal limits. 17:46 Abdomen/GI: Rectal exam: the exam is deferred, The patient is taking iron. Vital Signs: 10:19 BP 132 / 75; Pulse 95; Resp 18; Temp 98.2(O); Pulse Ox 98% ; Weight 74.84 kg; Height 5 sv ft. 4 in. (162.56 cm); Pain 0/10; 12:00 BP 141 / 69; Pulse 85; Resp 16; Pulse Ox 98% ; bp 14:00 BP 131 / 71; Pulse 91; Resp 16; Pulse Ox 98% ; bp 10:19 Body Mass Index 28.32 (74.84 kg, 162.56 cm) sv MDM: 15:24 Patient medically screened. kdr 17:46 Data reviewed: vital signs, nurses notes, lab test result(s), radiologic studies. kdr Counseling: I had a detailed discussion with the patient and/or guardian regarding: the historical points, exam findings, and any diagnostic results supporting the discharge/admit diagnosis, lab results, radiology results, the need for outpatient follow up. Physician consultation: Jey Mora MD regarding patient's condition, outpatient follow-up, and will see patient in office, next week. 03/25 11:59 Order name: Basic Metabolic Panel; Complete Time: 13:15 [facility] 03/25 11:59 Order name: CBC with Diff; Complete Time: 13:15 [facility] 03/25 11:59 Order name: Creatinine for Radiology; Complete Time: 13:15 [facility] 03/25 11:59 Order name: Hepatic Function; Complete Time: 13:15 [facility] 03/25 11:59 Order name: Lipase; Complete Time: 13:15 [facility] 03/25 12:35 Order name: PT-INR; Complete Time: 14:49 [facility] 03/25 11:59 Order name: IV Saline Lock; Complete Time: 12:19 [facility] 03/25 11:59 Order name: Labs collected and sent; Complete Time: 12:19 [facility] 03/25 12:35 Order name: CT Chest, Abdomen, Pelvis - W/Contrast; Complete Time: 14:49 [facility] 03/25 13:17 Order name: EKG - Nurse/Tech; Complete Time: 13:58 [facility] 03/25 13:17 Order name: Troponin (emerg Dept Use Only); Complete Time: 14:49 kdr 03/25 13:17 Order name: BNP; Complete Time: 14:49 [facility] 03/25 14:59 Order name: EKG Electrocardiogram; Complete Time: 15:00 EDMS Administered Medications: No medications were administered Disposition: 03/25/19 15:24 Discharged to Home. Impression: Weakness, Dyspnea. - Condition is Stable. - Discharge Instructions: Shortness of Breath, Fovi-lx-Runp, Fatigue, Weakness, Yokk-gm-Qyaf. - Medication Reconciliation Form, Thank You Letter form. - Follow up: Jey Mora MD; When: 2 - 3 days; Reason: If symptoms return, Further diagnostic work-up, Recheck today's complaints, Continuance of care, Re-evaluation by your physician. - Problem is an ongoing problem. - Symptoms have improved. Signatures: Dispatcher [employer] EDMS Radha Rodriguez RN RN sv Sukhjinder Prescott MD MD kdr Kalpesh Domínguez RN RN bp Corrections: (The following items were deleted from the chart) 15:25 15:24 03/25/2019 15:24 Discharged to Home. Impression: Weakness. Condition is Stable. kdr Forms are Medication Reconciliation Form, Thank You Letter, Antibiotic Education, Prescription Opioid Use. Follow up: Jey Mora; When: 2 - 3 days; Reason: If symptoms return, Further diagnostic work-up, Recheck today's complaints, Continuance of care, Re-evaluation by your physician. Problem is an ongoing problem. Symptoms have improved. kdr 15:47 15:25 03/25/2019 15:24 Discharged to Home. Impression: Weakness; Dyspnea. Condition is bp Stable. Forms are Medication Reconciliation Form, Thank You Letter, Antibiotic Education, Prescription Opioid Use. Follow up: Jey Mora; When: 2 - 3 days; Reason: If symptoms return, Further diagnostic work-up, Recheck today's complaints, Continuance of care, Re-evaluation by your physician. Problem is an ongoing problem. Symptoms have improved. kdr
--- NOTE | 2019-03-25 15:25 | ER ---
Nurse's Notes [facility] Name: Marlene Valderrama Age: 73 yrs Sex: Female : 1945 Arrival Date: 03/25/2019 Time: 10:05 Bed 13 Private MD: Jey Mora B Diagnosis: Weakness;Dyspnea Presentation: 03/25 10:17 Presenting complaint: Patient states: bloody stools since her AAA repair on 02/15/19. Pt sv was on Plavix and ASA and taken off of Plavix. c/o generalized weakness and "stomach ache, and when I eat or drink anything it helps with it.". Transition of care: patient was not received from another setting of care. Onset of symptoms was January 2019. Care prior to arrival: None. 10:17 Method Of Arrival: Wheelchair sv 10:17 Acuity: IGOR 3 sv 10:30 Risk Assessment: Do you want to hurt yourself or someone else? Patient reports no bp desire to harm self or others. Initial Sepsis Screen: Does the patient meet any 2 criteria? No. Patient's initial sepsis screen is negative. Does the patient have a suspected source of infection? No. Patient's initial sepsis screen is negative. Triage Assessment: 10:17 General: Appears in no apparent distress. comfortable, well developed, Behavior is sv calm, cooperative, appropriate for age. Pain: Denies pain. Neuro: Level of Consciousness is awake, alert, obeys commands, Oriented to person, place, time, situation, Gait is steady. Respiratory: Respiratory effort is even, unlabored, Respiratory pattern is regular, symmetrical. GI: Reports bloody stool. Derm: Skin is normal. Historical: - Allergies: 10:18 No Known Drug Allergies; sv - PSHx: 10:18 R wrist; Thyroidectomy; sv - Immunization history:: Adult Immunizations up to date. - Social history:: Smoking status: Patient/guardian denies using tobacco. - Ebola Screening: : No symptoms or risks identified at this time. Screenin:30 Abuse screen: Denies threats or abuse. Denies injuries from another. Nutritional bp screening: No deficits noted. Tuberculosis screening: No symptoms or risk factors identified. Fall Risk No fall in past 12 months (0 pts). No secondary diagnosis (0 pts). IV access (20 points). Ambulatory Aid- Crutches/Cane/Walker (15 pts). Gait- Weak (10 pts.). Mental Status- Oriented to own ability (0 pts). Total Cohen Fall Scale indicates High Risk Score (45 or more points). Fall prevention measures have been instituted. Side Rails Up X 2 Placed Close to Nursing Station Frequent Obs/Assessments Occuring Family Present and informed to notify staff if the need to leave the bedside As available patient and family educated on Fall Prevention Program and Strategies. Assessment: 10:20 General: SEE TRIAGE NOTE. bp 12:00 Reassessment: ALL CURRENT ORDERS COMPLETED, NO ACUTE S/S AT THIS TIME. bp 13:58 Reassessment: REPEAT EKG AND CARDIAC ENZYMES COMPLETED, RESULTS PENDING. bp 15:42 Reassessment: PT D/C HOME VIA W/C WITH FAMILY, DX WITH SHORTNESS OF BREATH. bp Vital Signs: 10:19 BP 132 / 75; Pulse 95; Resp 18; Temp 98.2(O); Pulse Ox 98% ; Weight 74.84 kg; Height 5 sv ft. 4 in. (162.56 cm); Pain 0/10; 12:00 BP 141 / 69; Pulse 85; Resp 16; Pulse Ox 98% ; bp 14:00 BP 131 / 71; Pulse 91; Resp 16; Pulse Ox 98% ; bp 10:19 Body Mass Index 28.32 (74.84 kg, 162.56 cm) sv ED Course: 10:05 Patient arrived in ED. mr 10:05 Jey Mora MD is Private Physician. mr 10:18 Triage completed. sv 10:21 Arm band placed on. sv 10:30 Patient has correct armband on for positive identification. Bed in low position. Call bp light in reach. Side rails up X2. Adult w/ patient. 11:58 Sukhjinder Prescott MD is Attending Physician. kdr 12:05 Kalpesh Domínguez, MALINDA is Primary Nurse. bp 12:15 Inserted saline lock: 22 gauge in right forearm, using aseptic technique. Blood bp collected. 13:23 CT Chest, Abdomen, Pelvis - W/Contrast In Process Unspecified. EDMS 13:46 EKG done, by target aircraft technician. reviewed by Sukhjinder Prescott MD. sm3 15:21 eJy Mora MD is Referral Physician. kdr 15:43 No provider procedures requiring assistance completed. IV discontinued, intact, bp bleeding controlled, No redness/swelling at site. Pressure dressing applied. Administered Medications: No medications were administered Outcome: 15:24 Discharge ordered by . kdr 15:44 Discharged to home via wheelchair, with family. bp 15:44 Condition: stable 15:44 Discharge instructions given to patient, Instructed on discharge instructions, follow up and referral plans. Demonstrated understanding of instructions, follow-up care. 15:47 Patient left the ED. bp Signatures: Dispatcher [employer] Radha Blackwell RN RN sv Sukhjinder Prescott MD MD kdr Rivera, Mary mr Peltier, Brian, RN RN Sary Villela [facility] Corrections: (The following items were deleted from the chart) 10:19 10:17 Presenting complaint: Patient states: bloody stools since her AAA repair on sv 02/15/19. Pt was on Plavix and ASA and taken off of Plavix. sv 15:18 10:30 Fall Risk None identified. bp bp
== END 2019-03-25 15:47 | disposition home or self-care (01) ==
LOC: ER 10:01
DX: R53.1 Weakness (principal)
CPT/HCPCS: 93005; 85025; 80048; 36415; 85610; 80076; 84484; 83690; 83880; 71260; 74177; 99284; Q9967

== ENCOUNTER 2021-09-05 06:40 | Day surgery (SDC) | payer OTHER ==
[2021-09-05] MEDS ORDERED: Ringers Lactate 1,000 ML IV ONE (06:58)
[2021-09-05] MEDS ORDERED: propofoL 200 MG/20 ML VIAL IV ONE ×2 (07:13→08:04)
[2021-09-05] MEDS ORDERED: FENTANYL CITR 100 MCG/2 ML ONE (07:13)
[2021-09-05] MEDS ORDERED: MIDAZOLAM HCL 2 MG/2 ML INJ ONE (07:13)
[2021-09-05] MEDS ORDERED: LIDOCAINE 2% MPF 5 ML VIAL ONE (07:13)
[2021-09-05] MEDS ORDERED: LIDOCAINE 1% W/EPI 1:100,000 MDV 20 ML VIAL ONE (07:25)
[2021-09-05] MEDS ORDERED: CEFAZOLIN SODIUM 1 GM/VIAL ONE (08:02)
[2021-09-05] MEDS ORDERED: ACETAMINOPHEN 500 MG TAB PO ONE (08:20)
--- NOTE | 2021-09-05 08:24 | P.BOP ---
Preoperative diagnosis: pelvic mass, endometrial thickening, cervical stenosis Postoperative diagnosis: same Primary procedure: hysteroscopy d/c [employer] Manager: NONE,NONE Estimated blood loss: min Specimen: pipelle sample of endometrial tissue, scant speciment retrieved Findings: stenotic canal, unable to dilate [id number], pipelle used to sample Anesthesia: MAC (and local paracervical block) Complications: None Transferred to: Recovery Room Condition: Good
[2021-09-05 08:46] VITALS: BP 119/45; TEMP 97.6; O2SAT 98
--- NOTE | 2021-09-05 19:02 | OP ---
Date of Procedure: 09/05/2021 Surgeon: Aida Moy MD Dressage Instructor: No assistants. Preoperative Diagnoses: Pelvic mass, endometrial thickening, and cervical stenosis. Postoperative Diagnoses: Pelvic mass, endometrial thickening, and cervical stenosis. Procedures Performed: Diagnostic hysteroscopy and attempted dilation and curettage, endometrial Pipe lle biopsy. Complications: Drains. Anesthesia: MAC with paracervical block. Estimated Blood Loss: Minimal. Specimens: Pipelle sample of the endometrial tissue, which was scant specimen that was retrieved. Condition: Stable. Findings: The canal was stenotic, unable to dilate it significantly. The size of the uterus on ultr asound was small, so it was carefully dilated through an anteflex. Orientation of the uterus was als o kept in mind as this was being done. A retroflexed direction of the uterus was kept in mind as thi s was done, so I was only able to dilate the cervix to 10-[place]an and the lower part of the canal only was visualized. Indications: The patient is a 76-year-old female, who presented with a pelvic mass. Her adnexal mas s was on the left side. It was being monitored. It went from 4.2 cm to 4.8 cm and then most recentl y when it was scanned, it was measured at 5.2 cm as there is a slight increase. There was a concern about the growing size of the cyst and before we proceeded with removal of the cyst, the plan was to do an endometrial sample as the stripe was 6 mm to 7 mm on the original ultrasound and then, it was 5 mm on the recent scan, so an endometrial biopsy was attempted to be performed in the office and as t he canal was stenotic, I was unable to dilate this. Description Of Procedure: She was consented and brought to the hospital for a possible direct visual ization hysteroscopy, D and C. After consenting the patient, she was taken back to the OR, placed in supine fashion on the operating table. MAC was given. She was placed in a dorsal lithotomy positio n and vulva, vagina were prepped with Betadine. A small speculum was placed to expose the cervix. A nterior lip was visualized, injected with 1% lidocaine mixed with 1:100,000 epinephrine. Then, Allis clamp was first placed on the cervix. The external os was dilated with the tip of the he mostat and attempted to place a slimline hysteroscope into the cervical canal. This was very difficu lt, so took the Allis clamp. I placed a Head speculums instead of the Mehreen and then, a canal was visualized and it was very difficult to visualize, so the dilators were taken and the uterus keeping in mind the retroflexed orientation, the dilation was done carefully. There was a lot of resistance , so I just left the dilation at 10-[place]. Looking with the hysteroscope, there was a small opening that was visualized in the lower part of the canal, but I could not get past this area, so took the scope out, got an endometrial Pipelle for sampling, and this was passed into the fundus of the uterus and then scraping was done with two passes. There was minimal amount of scant tissue that was retri eved and handed out for permanent pathology. It was sent away. All instruments were removed. There was no evidence of any bleeding for this patient. A gram of Ancef was given. She will get possibly Augmentin 500 twice a day for five days as prevention of any type of endometrial infection. EBL min imal. Instrument, needle, and sponge counts were correct at the end of the case. She was recovered from anesthesia and taken to the PACU in stable condition. HAN/OMAIRA Voice ID: [id number] Report ID: [id number]
== END 2021-09-05 09:02 | disposition home or self-care (01) ==
LOC: OR 06:40
PROVIDERS: ATTEND Obstetrics & Gynecology
PROC: 0UDB8ZX Extraction of Endometrium, Via Natural or Artificial Opening Endoscopic, Diagnostic (ICD-10-PCS; principal; 2021-09-05 07:30)
DX: N85.00 Endometrial hyperplasia, unspecified (principal); Z20.822 Contact with and (suspected) exposure to COVID-19
CPT/HCPCS: 88305; 58558; U0003; J2704; J3010; J7120; J0690; J2250

== ENCOUNTER 2021-10-21 10:35 | Day surgery (SDC) | payer OTHER ==
[2021-10-14 13:39] LABS: Urine Appearance CLEAR (Clear); Urine Bilirubin NEGATIVE (Negative); Urine Blood 3+ (Negative); Urine Color YELLOW (Yellow); Urine Glucose NEGATIVE (Negative); Urine Protein TRACE (Negative); Urine Specific Gravity <=1.005 (1.005-1.030); Urine Urobilinogen 0.2 mg/dL (0.2-1.0); Urine pH 7.5 (5.0-7.0)
[2021-10-14 13:40] LABS: Absolute Lymphocytes (CBC) 2.6 K/uL (0.7-4.9); Hematocrit 38.6 % (36.0-45.0); Lymphocytes % 36.2 % (15.3-44.8); MPV 7.3 fL (7.6-11.3); RBC Red Blood Cell Count 4.52 M/uL (3.86-4.86)
[2021-10-14 13:46] LABS: Urine Microscopic Reflex ORDER UMIC
[2021-10-14 13:53] LABS: Urine Bacteria <20 /HPF (<20); Urine Mucus 1+ /HPF (NONE SEEN)
[2021-10-21] MEDS: Ringers Lactate 1,000 ML IV SCH ×4 (07:30→19:57)
[~2021-10-21 10:35] MED LIST: CEFAZOLIN/SWI 2gm 2 GM/20 ML SYR IV SCH; SCOPOLAMINE HYDROBROMIDE PATCH TD SCH
[2021-10-21] MEDS ORDERED: Ringers Lactate 1,000 ML IV ONE ×2 (11:02→13:43)
[2021-10-21] MEDS ORDERED: SCOPOLAMINE HYDROBROMIDE PATCH TD ONE (11:02)
[2021-10-21] MEDS: CEFAZOLIN/SWI 2gm 2 GM/20 ML SYR ONE ×2 (12:38→13:02)
[2021-10-21] MEDS ORDERED: BUPIVACAINE 0.25% PF 10 ML VIAL ONE (12:47)
[2021-10-21] MEDS ORDERED: ROCURONIUM 50 MG/5 ML VIAL IV ONE ×2 (14:52→14:53)
[2021-10-21] MEDS ORDERED: FENTANYL CITR 100 MCG/2 ML ONE (14:53)
[2021-10-21] MEDS ORDERED: MIDAZOLAM HCL 2 MG/2 ML INJ ONE (14:53)
[2021-10-21] MEDS ORDERED: propofoL 200 MG/20 ML VIAL IV ONE (14:53)
[2021-10-21] MEDS ORDERED: LIDOCAINE 2% MPF 5 ML VIAL ONE (14:53)
[2021-10-21] MEDS ORDERED: GLYCOPYRROLATE 0.2 MG/ML SYR ONE (15:36)
[2021-10-21] MEDS ORDERED: NEOSTIGMINE 1 MG/ML -5 ML ONE (15:38)
[2021-10-21] MEDS ORDERED: PROMETHAZINE INJ 25 MG/ML AMP IV PRN (15:44)
[2021-10-21] MEDS ORDERED: MORPHINE 2 MG/ML SYR IV PRN (15:44)
[2021-10-21] MEDS ORDERED: ONDANSETRON 4 MG/2 ML VIAL IV PRN (15:44)
[2021-10-21] MEDS ORDERED: ONDANSETRON 4 MG/2 ML VIAL ONE (15:48)
--- NOTE | 2021-10-21 15:56 | P.BOP ---
Preoperative diagnosis: pelvic mass Postoperative diagnosis: Left ovarian mass Primary procedure: TLH BSO pelvic washings cystoscopy Knurling Machine Tender: Shana Jose Estimated blood loss: min Specimen: uterus tubes ovaries, pelvic washings Findings: left ovarian 5cm mass Anesthesia: General Complications: None Fluids & blood products: LR 1400, UO 300 Transferred to: Recovery Room Condition: Good
[2021-10-21 17:32] VITALS: BMI 28.7
[2021-10-21] MEDS ORDERED: INFLUENZA VACCINE (for 6+ mo) 0.5 ML DOSE IMVAC ONE (18:00)
--- NOTE | 2021-10-22 02:05 | OP ---
Date of Procedure: 10/21/2021 Surgeon: Aida Moy MD Supervisor Nurse: Shana Tan Preoperative Diagnosis: Left adnexal mass that is increasing in size. Postoperative Diagnosis: Left adnexal mass that is increasing in size. Procedure Performed: Total laparoscopic hysterectomy, bilateral salpingo-oophorectomy, pelvic washin gs, and cystoscopy. Anesthesia: General endotracheal. Estimated Blood Loss: Minimal. Urine Output: 300. Fluids: LR 1400. Specimens: Uterus, tubes, ovaries. Left tube and ovary were together in a separate specimen and [place] with right tube and ovary attached to it. A small piece of the cervix was handed as a separate s pecimen. Findings: The left ovary was noted to be enlarged with a cystic mass with a smooth exterior surface. No other intraperitoneal masses were seen. Omentum was unremarkable. Upper abdominal surfaces inc luding the liver were normal. There were adhesions of the colon from evidence of diverticula probabl y from this to the left lateral wall and left IP. The adhesions had to be taken down before I starte d the hysterectomy. There was a perforation of the uterus on the anterior wall low because the uteru s was retroflexed and the canal was stenotic and this was already known from her past attempted hyste roscopy under ultrasound guidance where it was very difficult to enter the uterine cavity. After the hysterectomy was performed without uterine manipulator, the vaginal closure was done with 4 sutures, 2 Vicryl at both angles and 2 [id number] in the center with PDS. Cystoscopy, both ur eteric orifices were very well patent with a strong jets of urine from both of them. No evidence of any trauma to the bladder. Vaginal cuff was well closed and suspended. Description Of Procedure: After informed consent was verified, patient was taken back to OR, placed in supine fashion on the operating table. After abdomen, vulva, vagina, and perineum were prepped an d draped in a sterile fashion, Palencia was placed to drain the bladder and attempted to place VCare int o the uterus. Later on laparoscopy noted to have a uterine perforation on the anterior wall, well ab ove the level of the bladder. It was very difficult to get into the uterine cavity even after later attempts. So, the small VCare was removed and a sizer was placed to perform the procedure. Retrograde filling with the LR bag emptied, was attached to the Palencia and this was kept drained on th e floor. A 1 cm infraumbilical incision was made with a scalpel. Fascia was incised, tagged with 0 Vicryl sut ures. Rosa introduced. Site of entry was checked and was unremarkable. Suprapubic [address], two 5 ports on the left and right lower quadrants. After peritoneal survey, pelvic washings were performed. The adhesions of the anterior abdominal wal l, left lateral wall, left IP were all taken down with the help of the cutting on the LigaSure. Then , once IP was well visualized, the lateral peritoneum parallel to the IP was opened up all the way to the level of the round ligament. This was taken down. Then, the ligament was from the ur eter posteriorly. Opening made medially and then the IP was taken down as a separate pedicle. Then, round ligament was taken down, broad ligament was opened up on the left side and bladder flap was st arted. Then, dissection carried down all the way down to the distal uterosacral. Here, the peritone um was opened up. The tube and ovary were detached as it was very difficult to manipulate the uterus without the presence of a manipulator. The weight of the ovary and tube were pulling this down. So , this was taken down without any rupture of the cyst, placed in the cul-de-sac. Then went on to expose the vessels. Vessels were taken down with the help of the LigaSure. Posterio rly, peritoneum taken down to start the posterior dissection. On the opposite side, tube and ovary were taken down after opening the peritoneum between the ureter and the IP distally. Then, the IP was taken down with the help of the LigaSure. Then, another windo w was placed around the round ligament. This was taken down. Then, peritoneum anteriorly and television specialist iorly opened up, posteriorly connecting with the posterior vaginal wall incision and then anteriorly connecting the bladder flap. The bladder was dissected down. Anterior vaginal wall was exposed. Th en, prevesical space was opened up and bladder pushed down. The vessels exposed taken down with the help of the LigaSure on the side and circumferential colpotomy was performed with the help of scissor s and the LigaSure without using the vessel field, just bipolar cautery followed by the cutting. The small piece of the cervix on the anterior lip, this was taken down separately. Then, vaginal cuff w as closed at both angles with simple 0 Vicryl stitch and 2 [id number] PDS sutures in the center. There was excellent closure. No evidence of any trauma to the ureters or the bladder. All the tro cars were removed under direct vision after thorough irrigation and suction were performed. There wa s excellent hemostasis. No evidence of any trauma to the sigmoid as well. The 2 sigmoid epiploica w ere picked up for retraction using a 3-0 Monocryl suture pulled up through the left upper quadrant in cision using a Mega-Vinh needle. This was released and made sure that there was no injury to t he diverticula or the bowel and there was none. Injected with Marcaine at the fascia and the skin both entry and exit on all 4 sites. The fascia at the umbilicus after desufflation was closed with the help of 0 Vicryl sutures tied to each other, the n simple 0 Vicryl stitch at the suprapubic site. All skin incisions closed with interrupted 4-0 Vicr yl sutures. Palencia was removed. Cystoscopy was performed with a 17-Mongolian sheath, 30-degree lens, no rmal saline. Normal jets of urine from both ureteric orifices readily were seen. The bladder was fu lly filled. No evidence of any trauma to the bladder. The bladder was then drained partially. Vaginal cuff was well visualized on the bottom and there was excellent closure. Slight tear in the v estibule that was not bleeding, so this was left to heal spontaneously. Instrument, needle, sponge c ounts were correct at the end of the case. Patient tolerated the procedure well. EBL was minimal. She will follow up with me in 1 week postop. Due to her cardiac bigeminy as well as the history of thoracic aortic stents, patient will be monitor ed on telemetry overnight and then will be discharged home tomorrow. No Toradol or NSAIDs have been given because she has slightly higher BUN and creatinine clearance was low, was in her 60s and this w as from labs done in April. Supervisor [employer] is Dr. Raza. If there is any problem, he will be consult ed for. HAN/OMAIRA Voice ID: [id number] Report ID: [id number]
[2021-10-22] MEDS: ACETAMINOPHEN 500 MG TAB PO PRN ×2 (04:55→14:52)
[2021-10-22] MEDS: Ringers Lactate 1,000 ML IV SCH (04:55)
[2021-10-22 05:54] LABS: Potassium 3.5 mmol/L (3.5-5.1)
[2021-10-22] MEDS ORDERED: LEVOTHYROXINE SOD 0.1 MG TAB PO SCH (06:30)
[2021-10-22] MEDS ORDERED: HYDROCHLOROTHIAZIDE PO SCH (09:00)
[2021-10-22] MEDS ORDERED: FERROUS SULFATE 325 MG TAB PO SCH (09:00)
[2021-10-22] MEDS ORDERED: OLMESARTAN PO SCH (09:00)
[2021-10-22] MEDS ORDERED: METOPROLOL XL 25 MG TAB PO SCH (09:00)
[2021-10-22] MEDS ORDERED: hydroCHLOROthiazide 12.5 MG CAP PO SCH (09:00)
[2021-10-22] MEDS ORDERED: HOME MED 1 EA UNK (Levothyroxine Sodium [Levothyroxine] 100 MCG Capsule) PO SCH (09:00)
[2021-10-22] MEDS ORDERED: HOME MED 1 EA UNK (Rosuvastatin Calcium [Rosuvastatin Calcium] 5 MG Tablet) PO SCH (09:00)
[2021-10-22] MEDS ORDERED: [UNRECOGNIZED DRUG - OTHER] PO SCH (09:00)
[2021-10-22] MEDS ORDERED: VITAMIN D 5,000 UNIT CAP PO SCH (09:00)
[2021-10-22] MEDS ORDERED: VALSARTAN 80 MG TAB PO SCH (09:00)
[2021-10-22] MEDS ORDERED: HOME MED 1 EA UNK (Magnesium [Magnesium Gluconate] 200 MG Tablet) PO SCH (09:00)
[2021-10-22] MEDS ORDERED: CITALOPRAM 10 MG TABLET PO SCH (09:00)
[2021-10-22 09:19] VITALS: O2SAT 93
[2021-10-22 16:30] VITALS: BP 144/63; TEMP 98.2
== END 2021-10-22 18:23 | disposition home health service (06) ==
LOC: OR 10:35 → 2ND 15:44 → OR 10-22 18:23
PROVIDERS: ATTEND Obstetrics & Gynecology
PROC: 0UT24ZZ Resection of Bilateral Ovaries, Percutaneous Endoscopic Approach (ICD-10-PCS; 2021-10-21)
PROC: 0UT74ZZ Resection of Bilateral Fallopian Tubes, Percutaneous Endoscopic Approach (ICD-10-PCS; 2021-10-21)
PROC: 0UT94ZZ Resection of Uterus, Percutaneous Endoscopic Approach (ICD-10-PCS; principal; 2021-10-21 12:00)
DX: D25.9 Leiomyoma of uterus, unspecified (principal); N85.00 Endometrial hyperplasia, unspecified; N83.292 Other ovarian cyst, left side; R31.21 Asymptomatic microscopic hematuria; N83.8 Other noninflammatory disorders of ovary, fallopian tube and broad ligament; Z20.822 Contact with and (suspected) exposure to COVID-19
CPT/HCPCS: 85025; 80048; 36415 ×2; 86900; 88108; 86850; 86901; 88305; 88307; 94010; 58571; U0003; J2704; J2250; J3010; J2270; J2710; J0690; J7120 ×4; J2405; 81003; 81015

== ENCOUNTER 2022-04-12 00:41 | Emergency (ER) | payer OTHER, SELFPAY ==
--- OUTSIDE RECORDS SUMMARY | 2022-04-12 00:47 | XMS REPORT | Continuity of Care Document ---
:1945 Author Organization [facility] t Address [address] [place] [address] Care Team Providers Name Role Phone NICOLE Attending Clinician Unavailable NICOLE Admitting Clinician Unavailable Payers Payer Name Policy Type Policy Number Effective Date Expiration Date S ource Problems This patient has no known problems. Allergies, Adverse Reactions, Alerts Allergy Allergy Status Severity Reaction(s) Onset Inactive Treating Comm ents Source Name Type Date Date Clinician No Known DA Active U 2013- [facility] Allergie 3-21 Pearlan s 00:00: d 00 [facility] Medications This patient has no known medications. Procedures This patient has no known procedures. Results Test Description Test Time Test Comments Results Result [facility] e Comments CTA, CHEST, 2019-02-21 Reason for Addendum BeginsREPORT ABDOMEN - PELVIS, 13:06:00 exam:->s/p STATUS:A PATIENT ID: FOR DISSECTION TEVAR [id number] ADDENDUM: Study reviewed by radiology. Agree with the nonvascular findings as described below. Ultrasound of the pelvis is recommended for further evaluation of the left adnexal cystic lesion. Signed: Devendra Garcia MDReport Verified Date/Time: 02/21/2019 13:06:06 Reading Location: [place] [address] Angio Body Reading RoomAddendum EndsFINAL REPORT CT [...] been described in prior addendum by the [employer] Radiologist and dedicated ultrasound scan should be [...] been described in prior addendum, and the [employer] Radiologist recommended dedicated pelvic ultrasound scan for further tissue as this is an abnormal finding for patient's age group. 3. An addendum will be dictated regarding the non-vascular findings by the [employer] Radiologist. Signed: Shaggy Brown MDRmaximinoort Verified Date/Time: 02/20/2019 08:12:32 Reading Location: [facility] P047 Cardiology MRI , CHEST, 1 2019-02-19 Reason for FINAL REPORT PATIENT VIEW, NON DEPT 12:36:00 exam:->post ID: [id number] opShould this Comparison: 02/18/2019 be performed at TECHNIQUE: Single view the of the chest FINDINGS: bedside?->Yes Left pleural effusion and adjacent airspace disease again noted. Lungs otherwise clear. Cardiac silhouette is enlarged. Thoracic aortic stent graft noted. Right internal jugular central line is stable. Signed: Sha Escalonaeport Verified Date/Time: 02/19/2019 12:36:50 Reading Location: [facility] B1 [id number] Ortho Consult Reading Room PHORUS 2019-02-19 06:33:00 Test Item Value Reference Range Interpretation Comme nts PHOSPHORUS (BEAKER) (test code = 604) 2.5 mg/dL 2.3-4.7 [id number] 06:33:00 Test Item Value Reference Range Interpretation Comments MAGNESIUM (BEAKER) (test code = 1.5 mg/dL 1.6-2.6 L 627) BASIC METABOLIC [id number] 06:33:00 Test Item Value Reference Range Interpretation Comments SODIUM (BEAKER) 138 meq/L 136-145 (test code = 381) POTASSIUM (BEAKER) 3.6 meq/L 3.5-5.1 (test code = 379) CHLORIDE (BEAKER) 103 meq/L 98-107 (test code = 382) CO2 (BEAKER) (test 29 meq/L 22-29 code = 355) BLOOD UREA NITROGEN 6 mg/dL 7-21 L (BEAKER) (test code = 354) CREATININE (BEAKER) 0.60 mg/dL 0.57-1.25 (test code = 358) GLUCOSE RANDOM 93 mg/dL 70-105 (BEAKER) (test code = 652) CALCIUM (BEAKER) 8.4 mg/dL 8.4-10.2 (test code = 697) EGFR (BEAKER) (test 98 mL/min/1.73 ESTIMA REED GFR IS code = 1092) sq m NOT ACCURATE CREATININE CLEARANCE IN PREDICTING GLOMERULAR FILTRATION RATE . ESTIMATED GFR I S NOT APPLICABLE FOR DIALYSIS PATIEN TS. PROTHROMBIN [id number] 06:20:00 Test Item Value Reference Range Interpretation Comments PROTIME (BEAKER) (test code = 14.2 seconds 11.7-14.7 759) INR (BEAKER) (test code = 370) 1.1 <=5.9 RECOMMENDED COUMADIN/WARFARIN INR THERAPY RANGESSTANDARD DOSE: 2.0 - 3.0 Includes: PROPHYLAXIS forvenous thrombosis, systemic embolization; TREATMENT for venous thrombosis and/or pulmonary embolus.HIGH RISK: Target INR is 2.5-3.5 for patients with mechanical heart valves.[id number] 06:20:00 Test Item Value Reference Range Interpretation Comments PARTIAL THROMBOPLASTIN TIME 34.6 seconds 22.5-36.0 (BEAKER) (test code = 760) CBC (HEMOGRAM ONLY)2019-02-19 05:51:00 Test Item Value Reference Range Interpretation Comments WHITE BLOOD CELL COUNT (BEAKER) 8.2 K/ L 3.5-10.5 (test code = 775) RED BLOOD CELL COUNT (BEAKER) 3.28 M/ L 3.93-5.22 L (test code = 761) HEMOGLOBIN (BEAKER) (test code = 9.3 GM/DL 11.2-15.7 L 410) HEMATOCRIT (BEAKER) (test code = 29.1 % 34.1-44.9 L 411) MEAN CORPUSCULAR VOLUME (BEAKER) 88.7 fL 79.4-94.8 (test code = 753) MEAN CORPUSCULAR HEMOGLOBIN 28.4 pg 25.6-32.2 (BEAKER) (test code = 751) MEAN CORPUSCULAR HEMOGLOBIN CONC 32.0 GM/DL 32.2-35.5 L (BEAKER) (test code = 752) RED CELL DISTRIBUTION WIDTH 13.3 % 11.7-14.4 (BEAKER) (test code = 412) PLATELET COUNT (BEAKER) (test 215 K/CU MM 150-450 code = 756) MEAN PLATELET VOLUME (BEAKER) 10.3 fL 9.4-12.3 (test code = 754) NUCLEATED RED BLOOD CELLS 0 /100 WBC 0-0 (BEAKER) (test code = 413) RAD, CHEST, 1 VIEW, NON [id number] 08:41:00Reason for exam:->post opShould this be performed [...] MDReport Verified Date/Time: 02/18/2019 08:41:53 Reading Location: [facility] Radiology Reading Room BASIC METABOLIC [id number] 06:08:00 Test Item Value Reference Range Interpretation Comments SODIUM (BEAKER) 139 meq/L 136-145 (test code = 381) POTASSIUM (BEAKER) 3.2 meq/L 3.5-5.1 L (test code = 379) CHLORIDE (BEAKER) 104 meq/L 98-107 (test code = 382) CO2 (BEAKER) (test 30 meq/L 22-29 H code = 355) BLOOD UREA NITROGEN 8 mg/dL 7-21 (BEAKER) (test code = 354) CREATININE (BEAKER) 0.60 mg/dL 0.57-1.25 (test code = 358) GLUCOSE RANDOM 102 mg/dL 70-105 (BEAKER) (test code = 652) CALCIUM (BEAKER) 7.9 mg/dL 8.4-10.2 L (test code = 697) EGFR (BEAKER) (test 98 mL/min/1.73 ESTIMA REED GFR IS code = 1092) sq m NOT ACCURATE CREATININE CLEARANCE IN PREDICTING GLOMERULAR FILTRATION RATE . ESTIMATED GFR I S NOT APPLICABLE FOR DIALYSIS PATIEN TS. [id number] 06:07:00 Test Item Value Reference Range Interpretation Comments PHOSPHORUS (BEAKER) (test code = 2.8 mg/dL 2.3-4.7 604) [id number] 06:07:00 Test Item Value Reference Range Interpretation Comments MAGNESIUM (BEAKER) (test code = 1.9 mg/dL 1.6-2.6 627) [id number] 05:38:00 Test Item Value Reference Range Interpretation Comments PARTIAL THROMBOPLASTIN TIME 36.6 seconds 22.5-36.0 H (BEAKER) (test code = 760) PROTHROMBIN [id number] 05:37:00 Test Item Value Reference Range Interpretation Comments PROTIME (BEAKER) (test code = 15.4 seconds 11.7-14.7 H 759) INR (BEAKER) (test code = 370) 1.2 <=5.9 RECOMMENDED COUMADIN/WARFARIN INR THERAPY RANGESSTANDARD DOSE: 2.0 - 3.0 Includes: PROPHYLAXIS forvenous thrombosis, systemic embolization; TREATMENT for venous thrombosis and/or pulmonary embolus.HIGH RISK: Target INR is 2.5-3.5 for patients with mechanical heart valves.CBC (HEMOGRAM ONLY)2019-02-18 05:19:00 Test Item Value Reference Range Interpretation Comments WHITE BLOOD CELL COUNT (BEAKER) 8.1 K/ L 3.5-10.5 (test code = 775) RED BLOOD CELL COUNT (BEAKER) 3.14 M/ L 3.93-5.22 L (test code = 761) HEMOGLOBIN (BEAKER) (test code = 9.0 GM/DL 11.2-15.7 L 410) HEMATOCRIT (BEAKER) (test code = 28.1 % 34.1-44.9 L 411) MEAN CORPUSCULAR VOLUME (BEAKER) 89.5 fL 79.4-94.8 (test code = 753) MEAN CORPUSCULAR HEMOGLOBIN 28.7 pg 25.6-32.2 (BEAKER) (test code = 751) MEAN CORPUSCULAR HEMOGLOBIN CONC 32.0 GM/DL 32.2-35.5 L (BEAKER) (test code = 752) RED CELL DISTRIBUTION WIDTH 13.2 % 11.7-14.4 (BEAKER) (test code = 412) PLATELET COUNT (BEAKER) (test 218 K/CU MM 150-450 code = 756) MEAN PLATELET VOLUME (BEAKER) 9.8 fL 9.4-12.3 (test code = 754) NUCLEATED RED BLOOD CELLS 0 /100 WBC 0-0 (BEAKER) (test code = 413) [id number] 12:24:00 Test Item Value Reference Range Interpretation Comments MAGNESIUM (BEAKER) (test code = 2.3 mg/dL 1.6-2.6 627) BASIC METABOLIC [id number] 12:24:00 Test Item Value Reference Range Interpretation Comments SODIUM (BEAKER) 136 meq/L 136-145 (test code = 381) POTASSIUM (BEAKER) 3.7 meq/L 3.5-5.1 (test code = 379) CHLORIDE (BEAKER) 103 meq/L 98-107 (test code = 382) CO2 (BEAKER) (test 26 meq/L 22-29 code = 355) BLOOD UREA NITROGEN 8 mg/dL 7-21 (BEAKER) (test code = 354) CREATININE (BEAKER) 0.64 mg/dL 0.57-1.25 (test code = 358) GLUCOSE RANDOM 109 mg/dL 70-105 H (BEAKER) (test code = 652) CALCIUM (BEAKER) 8.3 mg/dL 8.4-10.2 L (test code = 697) EGFR (BEAKER) (test 91 mL/min/1.73 ESTIMA REED GFR IS code = 1092) sq m NOT ACCURATE CREATININE CLEARANCE IN PREDICTING GLOMERULAR FILTRATION RATE . ESTIMATED GFR I S NOT APPLICABLE FOR DIALYSIS PATIEN TS. RAD, CHEST, 1 VIEW, NON [id number] 10:13:00Reason for exam:->post opShould this be performed at the bedside?->YesFINAL REPORT Chest one view. Clinical history: post op Comparison: 02/16/2019 Discussion: A frontal chest is provided. Cardiomediastinal contours are unchanged. Right IJ line is in stable position. There is mild interstitial prominence. There is a layering left effusion, not significantly changed. Stable retrocardiac opacity. No pneumothorax. Signed: Radha Meléndezeport Verified Date/Time: 02/17/2019 10:13:18 Reading Location: [facility] Radiology Reading Room BASIC METABOLIC [id number] 04:05:00 Test Item Value Reference Range Interpretation Comments SODIUM (BEAKER) 133 meq/L 136-145 L (test code = 381) POTASSIUM (BEAKER) 3.6 meq/L 3.5-5.1 Specimen slightly (test code = 379) hemolyzed CHLORIDE (BEAKER) 100 meq/L 98-107 (test code = 382) CO2 (BEAKER) (test 26 meq/L 22-29 code = 355) BLOOD UREA NITROGEN 6 mg/dL 7-21 L (BEAKER) (test code = 354) CREATININE (BEAKER) 0.53 mg/dL 0.57-1.25 L Specimen slightly (test code = 358) hemolyzed GLUCOSE RANDOM 105 mg/dL 70-105 (BEAKER) (test code = 652) CALCIUM (BEAKER) 7.7 mg/dL 8.4-10.2 L (test code = 697) EGFR (BEAKER) (test 113 mL/min/1.73 ESTIM ATED GFR IS code = 1092) sq m NOT ACCURATE CREATININE CLEARANCE IN PREDICTING GLOMERULAR FILTRATION RATE . ESTIMATED GFR I S NOT APPLICABLE FOR DIALYSIS PATIEN TS. [id number] 04:02:00 Test Item Value Reference Range Interpretation Comments MAGNESIUM (BEAKER) 1.8 mg/dL 1.6-2.6 Specimen slightly (test code = 627) hemolyzed [id number] 04:02:00 Test Item Value Reference Range Interpretation Comments PHOSPHORUS (BEAKER) 1.9 mg/dL 2.3-4.7 L Specimen slightly (test code = 604) hemolyzed [id number] 03:56:00 Test Item Value Reference Range Interpretation Comments PARTIAL THROMBOPLASTIN TIME 34.3 seconds 22.5-36.0 (BEAKER) (test code = 760) PROTHROMBIN [id number] 03:55:00 Test Item Value Reference Range Interpretation Comments PROTIME (BEAKER) (test code = 15.6 seconds 11.7-14.7 H 759) INR (BEAKER) (test code = 370) 1.2 <=5.9 RECOMMENDED COUMADIN/WARFARIN INR THERAPY RANGESSTANDARD DOSE: 2.0 - 3.0 Includes: PROPHYLAXIS forvenous thrombosis, systemic embolization; TREATMENT for venous thrombosis and/or pulmonary embolus.HIGH RISK: Target INR is 2.5-3.5 for patients with mechanical heart valves.CBC (HEMOGRAM ONLY)2019-02-17 03:48:00 Test Item Value Reference Range Interpretation Comments WHITE BLOOD CELL COUNT (BEAKER) 10.6 K/ L 3.5-10.5 H (test code = 775) RED BLOOD CELL COUNT (BEAKER) 3.10 M/ L 3.93-5.22 L (test code = 761) HEMOGLOBIN (BEAKER) (test code = 8.8 GM/DL 11.2-15.7 L 410) HEMATOCRIT (BEAKER) (test code = 27.8 % 34.1-44.9 L 411) MEAN CORPUSCULAR VOLUME (BEAKER) 89.7 fL 79.4-94.8 (test code = 753) MEAN CORPUSCULAR HEMOGLOBIN 28.4 pg 25.6-32.2 (BEAKER) (test code = 751) MEAN CORPUSCULAR HEMOGLOBIN CONC 31.7 GM/DL 32.2-35.5 L (BEAKER) (test code = 752) RED CELL DISTRIBUTION WIDTH 12.9 % 11.7-14.4 (BEAKER) (test code = 412) PLATELET COUNT (BEAKER) (test 258 K/CU MM 150-450 code = 756) MEAN PLATELET VOLUME (BEAKER) 10.3 fL 9.4-12.3 (test code = 754) NUCLEATED RED BLOOD CELLS 0 /100 WBC 0-0 (BEAKER) (test code = 413) [id number] 18:27:00 Test Item Value Reference Range Interpretation Comments POTASSIUM (BEAKER) (test code = 3.5 meq/L 3.5-5.1 379) Check Serum Phosphorus level 4 hours after IV phosphorus replacement or 8 hours after PO replacementcompleted.Check Serum Potassium level 2 hours after oral potassium replacement completed or 30 min after intravenous potassium replacement.[id number] 18:27:00 Test Item Value Reference Range Interpretation Comments MAGNESIUM (BEAKER) (test code = 1.6 mg/dL 1.6-2.6 627) Check Serum Phosphorus level 4 hours after IV phosphorus replacement or 8 hours after PO replacementcompleted.Check Serum Potassium level 2 hours after oral potassium replacement completed or 30 min after intravenous potassium replacement.[id number] 18:27:00 Test Item Value Reference Range Interpretation Comments PHOSPHORUS (BEAKER) (test code = 1.8 mg/dL 2.3-4.7 L 604) Check Serum Phosphorus level 4 hours after IV phosphorus replacement or 8 hours after PO replacementcompleted.Check Serum Potassium level 2 hours after oral potassium replacement completed or 30 min after intravenous potassium replacement.RAD, CHEST, 1 VIEW, NON [id number] 07:27:00Reason for exam:- >post opShould this be performed at the bedside?->YesFINAL REPORT Portable chest. CLINICAL HISTORY: post op. COMPARISON STUDY: Ches t x-ray from yesterday. FINDINGS: The cardiac silhouette is [...] in the left thorax.. Signed: Zeus Ruiz MDReport Verified Date/Time: 02/16/2019 0 7:27:26 Reading Location: [facility] Radiology Reading Room PHOSPHORUS 2019-02-16 05:29:00 Test Item Value Reference Range Interpretation Comments PHOSPHORUS (BEAKER) (test code = 3.5 mg/dL 2.3-4.7 604) [id number] 05:29:00 Test Item Value Reference Range Interpretation Comments MAGNESIUM (BEAKER) (test code = 2.3 mg/dL 1.6-2.6 627) BASIC METABOLIC [id number] 05:29:00 Test Item Value Reference Range Interpretation Comments SODIUM (BEAKER) 142 meq/L 136-145 (test code = 381) POTASSIUM (BEAKER) 3.9 meq/L 3.5-5.1 (test code = 379) CHLORIDE (BEAKER) 112 meq/L 98-107 H (test code = 382) CO2 (BEAKER) (test 24 meq/L 22-29 code = 355) BLOOD UREA NITROGEN 8 mg/dL 7-21 (BEAKER) (test code = 354) CREATININE (BEAKER) 0.67 mg/dL 0.57-1.25 (test code = 358) GLUCOSE RANDOM 148 mg/dL 70-105 H (BEAKER) (test code = 652) CALCIUM (BEAKER) 8.3 mg/dL 8.4-10.2 L (test code = 697) EGFR (BEAKER) (test 86 mL/min/1.73 ESTIMA REED GFR IS code = 1092) sq m NOT ACCURATE CREATININE CLEARANCE IN PREDICTING GLOMERULAR FILTRATION RATE . ESTIMATED GFR I S NOT APPLICABLE FOR DIALYSIS PATIEN TS. [id number] 05:12:00 Test Item Value Reference Range Interpretation Comments PARTIAL THROMBOPLASTIN TIME 36.6 seconds 22.5-36.0 H (BEAKER) (test code = 760) PROTHROMBIN [id number] 05:11:00 Test Item Value Reference Range Interpretation Comments PROTIME (BEAKER) (test code = 15.5 seconds 11.7-14.7 H 759) INR (BEAKER) (test code = 370) 1.2 <=5.9 RECOMMENDED COUMADIN/WARFARIN INR THERAPY RANGESSTANDARD DOSE: 2.0 - 3.0 Includes: PROPHYLAXIS forvenous thrombosis, systemic embolization; TREATMENT for venous thrombosis and/or pulmonary embolus.HIGH RISK: Target INR is 2.5-3.5 for patients with mechanical heart valves.CBC (HEMOGRAM ONLY)2019-02-16 04:54:00 Test Item Value Reference Range Interpretation Comments WHITE BLOOD CELL COUNT (BEAKER) 13.8 K/ L 3.5-10.5 H (test code = 775) RED BLOOD CELL COUNT (BEAKER) 3.57 M/ L 3.93-5.22 L (test code = 761) HEMOGLOBIN (BEAKER) (test code = 10.3 GM/DL 11.2-15.7 L 410) HEMATOCRIT (BEAKER) (test code = 32.0 % 34.1-44.9 L 411) MEAN CORPUSCULAR VOLUME (BEAKER) 89.6 fL 79.4-94.8 (test code = 753) MEAN CORPUSCULAR HEMOGLOBIN 28.9 pg 25.6-32.2 (BEAKER) (test code = 751) MEAN CORPUSCULAR HEMOGLOBIN CONC 32.2 GM/DL 32.2-35.5 (BEAKER) (test code = 752) RED CELL DISTRIBUTION WIDTH 12.5 % 11.7-14.4 (BEAKER) (test code = 412) PLATELET COUNT (BEAKER) (test 383 K/CU MM 150-450 code = 756) MEAN PLATELET VOLUME (BEAKER) 9.6 fL 9.4-12.3 (test code = 754) NUCLEATED RED BLOOD CELLS 0 /100 WBC 0-0 (BEAKER) (test code = 413) [id number] 21:44:00 Test Item Value Reference Range Interpretation Comments POTASSIUM (BEAKER) (test code = 3.9 meq/L 3.5-5.1 379) Check Serum Potassium level 2 hours after oral potassium replacement completed or 30 min after intravenous potassium replacement.[id number] 21:44:00 Test Item Value Reference Range Interpretation Comments MAGNESIUM (BEAKER) (test code = 1.8 mg/dL 1.6-2.6 627) Check Serum Potassium level 2 hours after oral potassium replacement completed or 30 min after intravenous potassium replacement.CALCIUM, [id number] 21:29:00 Test Item Value Reference Range Interpretation Comments CALCIUM IONIZED (BEAKER) (test 1.09 mmol/L 1.12-1.27 L code = 698) PH, BLOOD (BEAKER) (test code = 7.42 1810) Check serum Ionized Calcium level after 4 hours after IV Calcium replacement. [id number] 16:31:00 Test Item Value Reference Range Interpretation Comments ACTIVATED CLOTTING TIME 257 sec TEST ED AT [place] [address] (BEAKER) (test code = [place] [address]) [id number] 16:31:00 Test Item Value Reference Range Interpretation Comments ACTIVATED CLOTTING TIME 274 sec TEST ED AT [place] [address] (BEAKER) (test code = [place] [address]) [id number] 16:31:00 Test Item Value Reference Range Interpretation Comments ACTIVATED CLOTTING TIME 235 sec TEST ED AT [place] [address] (BEAKER) (test code = [place] [address]) [address] BASIC METABOLIC [id number] 15:50:00 Test Item Value Reference Range Interpretation Comments SODIUM (BEAKER) 138 meq/L 136-145 (test code = 381) POTASSIUM (BEAKER) 3.9 meq/L 3.5-5.1 (test code = 379) CHLORIDE (BEAKER) 113 meq/L 98-107 H (test code = 382) CO2 (BEAKER) (test 20 meq/L 22-29 L code = 355) BLOOD UREA NITROGEN 12 mg/dL 7-21 (BEAKER) (test code = 354) CREATININE (BEAKER) 0.65 mg/dL 0.57-1.25 (test code = 358) GLUCOSE RANDOM 150 mg/dL 70-105 H (BEAKER) (test code = 652) CALCIUM (BEAKER) 7.5 mg/dL 8.4-10.2 L (test code = 697) EGFR (BEAKER) (test 89 mL/min/1.73 ESTIMA REED GFR IS code = 1092) sq m NOT ACCURATE CREATININE CLEARANCE IN PREDICTING GLOMERULAR FILTRATION RATE . ESTIMATED GFR I S NOT APPLICABLE FOR DIALYSIS PATIEN TS. RAD, CHEST, 1 VIEW, NON [id number] 15:49:00Reason for exam:->Post-opShould this be performed at the bedside?->YesFINAL REPORT Chest one view. Clinical history: Post-op Comparison: 02/14/2019Discussion: A frontal chest is provided. ET is 1.7 cm above the bam. A right IJ line projectsover the distal SVC. A stent graft has been placed in the thoracic aorta. Cardiac silhouette is grossly unchanged. Mild interstitial prominence is noted, particularly on the left, which may reflect edema. There is mild left basilar consolidation with a suspected small left effusion. No pneumothorax Signed: Rdaha Meléndez MDReport Verified Date/Time: 02/15/2019 15:49:49 Reading Location: [address] Consult Reading Room PHOSPHORUS 2019-02-15 15:43:00 Test Item Value Reference Range Interpretation Comments PHOSPHORUS (BEAKER) (test code = 3.1 mg/dL 2.3-4.7 604) [id number] 15:43:00 Test Item Value Reference Range Interpretation Comments MAGNESIUM (BEAKER) (test code = 1.4 mg/dL 1.6-2.6 L 627) RAD, CHEST, 1 VIEW, NON [id number] 15:34:00Reason for exam:->post opFINAL REPORT TECHNIQUE: Frontal chest radiograph dated 02/15/2019. CLINICAL HISTORY: Postop COMPARISON STUDY: Chest radiograph performed earlier the same day IMPRESSION: Life support tubes and lines are unchanged. Descending aortic endovascular graft is unchanged. No change in left-sided lung disease. No pleural effusion or pneumothorax. Cardiomediastinal silhouette is stable in appearance. No pulmonary edema. Bones are osteopenic. Signed: Aramis Draper MDReport VerifiedDate/Time: 02/15/2019 15:34:57 Reading Location: [facility] Radiology Reading Room Electronically signedby: ARAMIS DRAPER MD on 02/15/2019 03:34 [id number] 15:05:00 Test Item Value Reference Range Interpretation Comments PARTIAL THROMBOPLASTIN TIME 36.5 seconds 22.5-36.0 H (BEAKER) (test code = 760) PROTHROMBIN [id number] 15:04:00 Test Item Value Reference Range Interpretation Comments PROTIME (BEAKER) (test code = 18.3 seconds 11.7-14.7 H 759) INR (BEAKER) (test code = 370) 1.5 <=5.9 RECOMMENDED COUMADIN/WARFARIN INR THERAPY RANGESSTANDARD DOSE: 2.0 - 3.0 Includes: PROPHYLAXIS forvenous thrombosis, systemic embolization; TREATMENT for venous thrombosis and/or pulmonary embolus.HIGH RISK: Target INR is 2.5-3.5 for patients with mechanical heart valves.CBC W/PLT COUNT & AUTO DIFFERENTIAL 2019-02-15 14:58:00 Test Item Value Reference Range Interpretation Comments WHITE BLOOD CELL COUNT (BEAKER) 13.7 K/ L 3.5-10.5 H (test code = 775) RED BLOOD CELL COUNT (BEAKER) 3.36 M/ L 3.93-5.22 L (test code = 761) HEMOGLOBIN (BEAKER) (test code = 9.7 GM/DL 11.2-15.7 L 410) HEMATOCRIT (BEAKER) (test code = 30.9 % 34.1-44.9 L 411) MEAN CORPUSCULAR VOLUME (BEAKER) 92.0 fL 79.4-94.8 (test code = 753) MEAN CORPUSCULAR HEMOGLOBIN 28.9 pg 25.6-32.2 (BEAKER) (test code = 751) MEAN CORPUSCULAR HEMOGLOBIN CONC 31.4 GM/DL 32.2-35.5 L (BEAKER) (test code = 752) RED CELL DISTRIBUTION WIDTH 12.8 % 11.7-14.4 (BEAKER) (test code = 412) PLATELET COUNT (BEAKER) (test 365 K/CU MM 150-450 code = 756) MEAN PLATELET VOLUME (BEAKER) 9.8 fL 9.4-12.3 (test code = 754) NUCLEATED RED BLOOD CELLS 0 /100 WBC 0-0 (BEAKER) (test code = 413) NEUTROPHILS RELATIVE PERCENT 75 % (BEAKER) (test code = 429) LYMPHOCYTES RELATIVE PERCENT 17 % (BEAKER) (test code = 430) MONOCYTES RELATIVE PERCENT 5 % (BEAKER) (test code = 431) EOSINOPHILS RELATIVE PERCENT 1 % (BEAKER) (test code = 432) BASOPHILS RELATIVE PERCENT 0 % (BEAKER) (test code = 437) NEUTROPHILS ABSOLUTE COUNT 10.30 K/ L 1.56-6.13 H (BEAKER) (test code = 670) LYMPHOCYTES ABSOLUTE COUNT 2.26 K/ L 1.18-3.74 (BEAKER) (test code = 414) MONOCYTES ABSOLUTE COUNT (BEAKER) 0.64 K/ L 0.24-0.36 H (test code = 415) EOSINOPHILS ABSOLUTE COUNT 0.18 K/ L 0.04-0.36 (BEAKER) (test code = 416) BASOPHILS ABSOLUTE COUNT (BEAKER) 0.06 K/ L 0.01-0.08 (test code = 417) IMMATURE GRANULOCYTES-RELATIVE 2 % 0-1 H PERCENT (BEAKER) (test code = 2801) BLOOD GAS, [id number] 14:53:00 Test Item Value Reference Range Interpretation Comments PH ARTERIAL (BEAKER) (test code = 7.38 7.35-7.45 383) PCO2 ARTERIAL (BEAKER) (test code 35 mmHg 35-45 = 384) PO2 ARTERIAL (BEAKER) (test code 123 mmHg 80-90 H = 385) O2 SATURATION ARTERIAL (BEAKER) 98.6 % 96.0-97.0 H (test code = 386) HCO3 ARTERIAL (BEAKER) (test code 21 mmol/L 21-29 = 388) BASE EXCESS ARTERIAL (BEAKER) -4.6 mmol/L -2.0-3.0 L (test code = 387) PATIENT TEMPERATURE (BEAKER) 34.2 C (test code = 1818) FIO2 (BEAKER) (test code = 1819) 60.0 % GLUCOSE-STAT [id number] 14:53:00 Test Item Value Reference Range Interpretation Comments GLUCOSE RANDOM (BEAKER) (test code 148 mg/dL 70-110 H = 652) HGB/HCT (H&H) - STAT [id number] 14:53:00 Test Item Value Reference Range Interpretation Comments HEMOGLOBIN (BEAKER) (test code = 10.8 g/dL 12.0-15.0 L 410) HEMATOCRIT (BEAKER) (test code = 32.0 % 36.0-45.0 L 411) CALCIUM, [id number] 14:53:00 Test Item Value Reference Range Interpretation Comments CALCIUM IONIZED (BEAKER) (test 1.05 mmol/L 1.12-1.27 L code = 698) PH, BLOOD (BEAKER) (test code = 7.34 1810) SODIUM NA-STAT [id number] 14:51:00 Test Item Value Reference Range Interpretation Comments SODIUM (BEAKER) (test code = 381) 136 meq/L 135-148 POTASSIUM-STAT [id number] 14:51:00 Test Item Value Reference Range Interpretation Comments POTASSIUM (BEAKER) (test code = 3.7 meq/L 3.6-5.5 379) BLOOD GAS, [id number] 10:49:00 Test Item Value Reference Range Interpretation Comments PH ARTERIAL (BEAKER) (test code = 7.46 7.35-7.45 H 383) PCO2 ARTERIAL (BEAKER) (test code 35 mmHg 35-45 = 384) PO2 ARTERIAL (BEAKER) (test code = 395 mmHg 80-90 H 385) O2 SATURATION ARTERIAL (BEAKER) 99.8 % 96.0-97.0 H (test code = 386) HCO3 ARTERIAL (BEAKER) (test code 24 mmol/L 21-29 = 388) BASE EXCESS ARTERIAL (BEAKER) 0.3 mmol/L -2.0-3.0 (test code = 387) PATIENT TEMPERATURE (BEAKER) (test 35.6 C code = 1818) FIO2 (BEAKER) (test code = 1819) 100.0 % POTASSIUM-STAT [id number] 10:49:00 Test Item Value Reference Range Interpretation Comments POTASSIUM (BEAKER) (test code = 3.4 meq/L 3.6-5.5 L 379) HGB/HCT (H&H) - STAT [id number] 10:49:00 Test Item Value Reference Range Interpretation Comments HEMOGLOBIN (BEAKER) (test code = 10.3 g/dL 12.0-15.0 L 410) HEMATOCRIT (BEAKER) (test code = 30.0 % 36.0-45.0 L 411) CALCIUM, [id number] 10:48:00 Test Item Value Reference Range Interpretation Comments CALCIUM IONIZED (BEAKER) (test 1.12 mmol/L 1.12-1.27 code = 698) PH, BLOOD (BEAKER) (test code = 7.44 1810) GLUCOSE-STAT [id number] 10:47:00 Test Item Value Reference Range Interpretation Comments GLUCOSE RANDOM (BEAKER) (test code = 96 mg/dL 70-110 652) SODIUM NA-STAT [id number] 10:47:00 Test Item Value Reference Range Interpretation Comments SODIUM (BEAKER) (test code = 381) 137 meq/L 135-148 BASIC METABOLIC [id number] 05:03:00 Test Item Value Reference Range Interpretation Comments SODIUM (BEAKER) 138 meq/L 136-145 (test code = 381) POTASSIUM (BEAKER) 3.7 meq/L 3.5-5.1 (test code = 379) CHLORIDE (BEAKER) 107 meq/L 98-107 (test code = 382) CO2 (BEAKER) (test 26 meq/L 22-29 code = 355) BLOOD UREA NITROGEN 13 mg/dL 7-21 (BEAKER) (test code = 354) CREATININE (BEAKER) 0.69 mg/dL 0.57-1.25 (test code = 358) GLUCOSE RANDOM 93 mg/dL 70-105 (BEAKER) (test code = 652) CALCIUM (BEAKER) 8.7 mg/dL 8.4-10.2 (test code = 697) EGFR (BEAKER) (test 83 mL/min/1.73 ESTIMA REED GFR IS code = 1092) sq m NOT ACCURATE CREATININE CLEARANCE IN PREDICTING GLOMERULAR FILTRATION RATE . ESTIMATED GFR I S NOT APPLICABLE FOR DIALYSIS PATIEN TS. CBC (HEMOGRAM ONLY)2019-02-15 04:40:00 Test Item Value Reference Range Interpretation Comments WHITE BLOOD CELL COUNT (BEAKER) 6.7 K/ L 3.5-10.5 (test code = 775) RED BLOOD CELL COUNT (BEAKER) 3.74 M/ L 3.93-5.22 L (test code = 761) HEMOGLOBIN (BEAKER) (test code = 10.5 GM/DL 11.2-15.7 L 410) HEMATOCRIT (BEAKER) (test code = 33.7 % 34.1-44.9 L 411) MEAN CORPUSCULAR VOLUME (BEAKER) 90.1 fL 79.4-94.8 (test code = 753) MEAN CORPUSCULAR HEMOGLOBIN 28.1 pg 25.6-32.2 (BEAKER) (test code = 751) MEAN CORPUSCULAR HEMOGLOBIN CONC 31.2 GM/DL 32.2-35.5 L (BEAKER) (test code = 752) RED CELL DISTRIBUTION WIDTH 12.8 % 11.7-14.4 (BEAKER) (test code = 412) PLATELET COUNT (BEAKER) (test 382 K/CU MM 150-450 code = 756) MEAN PLATELET VOLUME (BEAKER) 10.0 fL 9.4-12.3 (test code = 754) NUCLEATED RED BLOOD CELLS 0 /100 WBC 0-0 (BEAKER) (test code = 413) HEPATITIS B [id number] 19:05:00 Test Item Value Reference Range Interpretation Comments HEPATITIS B CORE TOTAL ANTIBODY Nonreactive Nonreactive (BEAKER) (test code = 497) HEPATITIS B SURFACE ANTIBODY < mIU/mL <8.0 (BEAKER) (test code = 647) HEPATITIS B SURFACE ANTIGEN (2) Nonreactive Nonreactive (BEAKER) (test code = 2585) HEPATITIS C [id number] 19:03:00 Test Item Value Reference Range Interpretation Comments HEPATITIS C ANTIBODY (BEAKER) Nonreactive Nonreactive (test code = 367) HIV-1 ANTIGEN WITH HIV-1/2 [id number] 19:03:00 Test Item Value Reference Range Interpretation Comments HIV-1 ANTIGEN WITH HIV 1\T\2 Nonreactive Nonreactive ANTIBODY (2) (BEAKER) (test code = 2586) URINALYSIS W/ [id number] 18:33:00 Test Item Value Reference Range Interpretation Comments COLOR (BEAKER) (test code = Colorless 470) CLARITY (BEAKER) (test code = Clear 469) SPECIFIC GRAVITY UA (BEAKER) 1.001 1.001-1.035 (test code = 468) PH UA (BEAKER) (test code = 7.0 5.0-8.0 467) PROTEIN UA (BEAKER) (test code Negative Negative = 464) GLUCOSE UA (BEAKER) (test code Negative Negative = 365) KETONES UA (BEAKER) (test code Negative Negative = 371) BILIRUBIN UA (BEAKER) (test Negative Negative code = 462) BLOOD UA (BEAKER) (test code = Small Negative A 461) NITRITE UA (BEAKER) (test code Negative Negative = 465) LEUKOCYTE ESTERASE UA (BEAKER) Trace Negative A (test code = 466) UROBILINOGEN UA (BEAKER) (test 0.2 mg/dL 0.2-1.0 code = 463) RBC UA (BEAKER) (test code = 2 /HPF 519) WBC UA (BEAKER) (test code = 2 /HPF 520) SOURCE(BEAKER) (test code = Urine, Voided 5125) [id number] 18:14:00 Test Item Value Reference Range Interpretation Comments LIPASE (BEAKER) (test code = 749) 202 U/L 8-78 H [id number] 18:14:00 Test Item Value Reference Range Interpretation Comments AMYLASE (BEAKER) (test code = 349) 48 U/L 25-125 HEPATIC FUNCTION [id number] 18:14:00 Test Item Value Reference Range Interpretation Comments TOTAL PROTEIN (BEAKER) (test code = 6.9 gm/dL 6.0-8.3 770) ALBUMIN (BEAKER) (test code = 1145) 3.3 g/dL 3.5-5.0 L BILIRUBIN TOTAL (BEAKER) (test code 0.3 mg/dL 0.2-1.2 = 377) BILIRUBIN DIRECT (BEAKER) (test 0.2 mg/dL 0.1-0.5 code = 706) ALKALINE PHOSPHATASE (BEAKER) (test 103 U/L 40-150 code = 346) AST (SGOT) (BEAKER) (test code = 20 U/L 5-34 353) ALT (SGPT) (BEAKER) (test code = 16 U/L 6-55 347) LACTATE DEHYDROGENASE (LDH)2019-02-14 18:14:00 Test Item Value Reference Range Interpretation Comments LACTATE DEHYDROGENASE (BEAKER) (test 278 U/L 125-220 H code = 635) PROTHROMBIN [id number] 17:51:00 Test Item Value Reference Range Interpretation Comments PROTIME (BEAKER) (test code = 14.1 seconds 11.7-14.7 759) INR (BEAKER) (test code = 370) 1.1 <=5.9 RECOMMENDED COUMADIN/WARFARIN INR THERAPY RANGESSTANDARD DOSE: 2.0 - 3.0 Includes: PROPHYLAXIS forvenous thrombosis, systemic embolization; TREATMENT for venous thrombosis and/or pulmonary embolus.HIGH RISK: Target INR is 2.5-3.5 for patients with mechanical heart valves.RETICULOCYTE [id number] 17:44:00 Test Item Value Reference Range Interpretation Comments RETICULOCYTE COUNT PCT (BEAKER) (test 2.0 % 0.5-1.7 H code = 575) RAD, CHEST, 2 [id number] 17:43:00Reason for exam:->Pre-opShould this be performed at [...] MDReport Verified Date/Time: 02/14/2019 17:43:10 Reading Location: [facility] Diagnostic Imaging Reading Room [place] [address] 1310.12 BASI METABOLIC [id number] 04:50:00 Test Item Value Reference Range Interpretation Comments SODIUM (BEAKER) 138 meq/L 136-145 (test code = 381) POTASSIUM (BEAKER) 3.9 meq/L 3.5-5.1 (test code = 379) CHLORIDE (BEAKER) 104 meq/L 98-107 (test code = 382) CO2 (BEAKER) (test 25 meq/L 22-29 code = 355) BLOOD UREA NITROGEN 14 mg/dL 7-21 (BEAKER) (test code = 354) CREATININE (BEAKER) 0.67 mg/dL 0.57-1.25 (test code = 358) GLUCOSE RANDOM 90 mg/dL 70-105 (BEAKER) (test code = 652) CALCIUM (BEAKER) 8.6 mg/dL 8.4-10.2 (test code = 697) EGFR (BEAKER) (test 86 mL/min/1.73 ESTIMA REED GFR IS code = 1092) sq m NOT ACCURATE CREATININE CLEARANCE IN PREDICTING GLOMERULAR FILTRATION RATE . ESTIMATED GFR I S NOT APPLICABLE FOR DIALYSIS PATIEN TS. CBC (HEMOGRAM ONLY)2019-02-14 04:39:00 Test Item Value Reference Range Interpretation Comments WHITE BLOOD CELL COUNT (BEAKER) 6.1 K/ L 3.5-10.5 (test code = 775) RED BLOOD CELL COUNT (BEAKER) 3.78 M/ L 3.93-5.22 L (test code = 761) HEMOGLOBIN (BEAKER) (test code = 10.7 GM/DL 11.2-15.7 L 410) HEMATOCRIT (BEAKER) (test code = 33.8 % 34.1-44.9 L 411) MEAN CORPUSCULAR VOLUME (BEAKER) 89.4 fL 79.4-94.8 (test code = 753) MEAN CORPUSCULAR HEMOGLOBIN 28.3 pg 25.6-32.2 (BEAKER) (test code = 751) MEAN CORPUSCULAR HEMOGLOBIN CONC 31.7 GM/DL 32.2-35.5 L (BEAKER) (test code = 752) RED CELL DISTRIBUTION WIDTH 12.7 % 11.7-14.4 (BEAKER) (test code = 412) PLATELET COUNT (BEAKER) (test 409 K/CU MM 150-450 code = 756) MEAN PLATELET VOLUME (BEAKER) 9.8 fL 9.4-12.3 (test code = 754) NUCLEATED RED BLOOD CELLS 0 /100 WBC 0-0 (BEAKER) (test code = 413) BASIC METABOLIC [id number] 06:16:00 Test Item Value Reference Range Interpretation Comments SODIUM (BEAKER) 139 meq/L 136-145 (test code = 381) POTASSIUM (BEAKER) 4.1 meq/L 3.5-5.1 (test code = 379) CHLORIDE (BEAKER) 105 meq/L 98-107 (test code = 382) CO2 (BEAKER) (test 27 meq/L 22-29 code = 355) BLOOD UREA NITROGEN 17 mg/dL 7-21 (BEAKER) (test code = 354) CREATININE (BEAKER) 0.75 mg/dL 0.57-1.25 (test code = 358) GLUCOSE RANDOM 92 mg/dL 70-105 (BEAKER) (test code = 652) CALCIUM (BEAKER) 8.9 mg/dL 8.4-10.2 (test code = 697) EGFR (BEAKER) (test 76 mL/min/1.73 ESTIMA REED GFR IS code = 1092) sq m NOT ACCURATE CREATININE CLEARANCE IN PREDICTING GLOMERULAR FILTRATION RATE . ESTIMATED GFR I S NOT APPLICABLE FOR DIALYSIS PATIEN TS. CBC (HEMOGRAM ONLY)2019-02-13 05:45:00 Test Item Value Reference Range Interpretation Comments WHITE BLOOD CELL COUNT (BEAKER) 6.4 K/ L 3.5-10.5 (test code = 775) RED BLOOD CELL COUNT (BEAKER) 3.91 M/ L 3.93-5.22 L (test code = 761) HEMOGLOBIN (BEAKER) (test code = 11.1 GM/DL 11.2-15.7 L 410) HEMATOCRIT (BEAKER) (test code = 34.9 % 34.1-44.9 411) MEAN CORPUSCULAR VOLUME (BEAKER) 89.3 fL 79.4-94.8 (test code = 753) MEAN CORPUSCULAR HEMOGLOBIN 28.4 pg 25.6-32.2 (BEAKER) (test code = 751) MEAN CORPUSCULAR HEMOGLOBIN CONC 31.8 GM/DL 32.2-35.5 L (BEAKER) (test code = 752) RED CELL DISTRIBUTION WIDTH 12.6 % 11.7-14.4 (BEAKER) (test code = 412) PLATELET COUNT (BEAKER) (test 410 K/CU MM 150-450 code = 756) MEAN PLATELET VOLUME (BEAKER) 9.8 fL 9.4-12.3 (test code = 754) NUCLEATED RED BLOOD CELLS 0 /100 WBC 0-0 (BEAKER) (test code = 413) BASIC METABOLIC [id number] 08:33:00 Test Item Value Reference Range Interpretation Comments SODIUM (BEAKER) 142 meq/L 136-145 (test code = 381) POTASSIUM (BEAKER) 4.3 meq/L 3.5-5.1 (test code = 379) CHLORIDE (BEAKER) 107 meq/L 98-107 (test code = 382) CO2 (BEAKER) (test 27 meq/L 22-29 code = 355) BLOOD UREA NITROGEN 13 mg/dL 7-21 (BEAKER) (test code = 354) CREATININE (BEAKER) 0.74 mg/dL 0.57-1.25 (test code = 358) GLUCOSE RANDOM 93 mg/dL 70-105 (BEAKER) (test code = 652) CALCIUM (BEAKER) 9.3 mg/dL 8.4-10.2 (test code = 697) EGFR (BEAKER) (test 77 mL/min/1.73 ESTIMA REED GFR IS code = 1092) sq m NOT ACCURATE CREATININE CLEARANCE IN PREDICTING GLOMERULAR FILTRATION RATE . ESTIMATED GFR I S NOT APPLICABLE FOR DIALYSIS PATIEN TS. CBC (HEMOGRAM ONLY)2019-02-12 06:53:00 Test Item Value Reference Range Interpretation Comments WHITE BLOOD CELL COUNT (BEAKER) 6.4 K/ L 3.5-10.5 (test code = 775) RED BLOOD CELL COUNT (BEAKER) 4.02 M/ L 3.93-5.22 (test code = 761) HEMOGLOBIN (BEAKER) (test code = 11.4 GM/DL 11.2-15.7 410) HEMATOCRIT (BEAKER) (test code = 36.0 % 34.1-44.9 411) MEAN CORPUSCULAR VOLUME (BEAKER) 89.6 fL 79.4-94.8 (test code = 753) MEAN CORPUSCULAR HEMOGLOBIN 28.4 pg 25.6-32.2 (BEAKER) (test code = 751) MEAN CORPUSCULAR HEMOGLOBIN CONC 31.7 GM/DL 32.2-35.5 L (BEAKER) (test code = 752) RED CELL DISTRIBUTION WIDTH 12.7 % 11.7-14.4 (BEAKER) (test code = 412) PLATELET COUNT (BEAKER) (test 417 K/CU MM 150-450 code = 756) MEAN PLATELET VOLUME (BEAKER) 9.8 fL 9.4-12.3 (test code = 754) NUCLEATED RED BLOOD CELLS 0 /100 WBC 0-0 (BEAKER) (test code = 413) [id number] 07:12:00 Test Item Value Reference Range Interpretation Comments MAGNESIUM (BEAKER) (test code = 1.8 mg/dL 1.6-2.6 627) BASIC METABOLIC [id number] 07:12:00 Test Item Value Reference Range Interpretation Comments SODIUM (BEAKER) 137 meq/L 136-145 (test code = 381) POTASSIUM (BEAKER) 4.0 meq/L 3.5-5.1 (test code = 379) CHLORIDE (BEAKER) 104 meq/L 98-107 (test code = 382) CO2 (BEAKER) (test 25 meq/L 22-29 code = 355) BLOOD UREA NITROGEN 14 mg/dL 7-21 (BEAKER) (test code = 354) CREATININE (BEAKER) 0.73 mg/dL 0.57-1.25 (test code = 358) GLUCOSE RANDOM 84 mg/dL 70-105 (BEAKER) (test code = 652) CALCIUM (BEAKER) 9.1 mg/dL 8.4-10.2 (test code = 697) EGFR (BEAKER) (test 78 mL/min/1.73 ESTIMA REED GFR IS code = 1092) sq m NOT ACCURATE CREATININE CLEARANCE IN PREDICTING GLOMERULAR FILTRATION RATE . ESTIMATED GFR I S NOT APPLICABLE FOR DIALYSIS PATIEN TS. CBC (HEMOGRAM ONLY)2019-02-11 06:56:00 Test Item Value Reference Range Interpretation Comments WHITE BLOOD CELL COUNT (BEAKER) 6.7 K/ L 3.5-10.5 (test code = 775) RED BLOOD CELL COUNT (BEAKER) 4.14 M/ L 3.93-5.22 (test code = 761) HEMOGLOBIN (BEAKER) (test code = 11.6 GM/DL 11.2-15.7 410) HEMATOCRIT (BEAKER) (test code = 37.0 % 34.1-44.9 411) MEAN CORPUSCULAR VOLUME (BEAKER) 89.4 fL 79.4-94.8 (test code = 753) MEAN CORPUSCULAR HEMOGLOBIN 28.0 pg 25.6-32.2 (BEAKER) (test code = 751) MEAN CORPUSCULAR HEMOGLOBIN CONC 31.4 GM/DL 32.2-35.5 L (BEAKER) (test code = 752) RED CELL DISTRIBUTION WIDTH 12.7 % 11.7-14.4 (BEAKER) (test code = 412) PLATELET COUNT (BEAKER) (test 421 K/CU MM 150-450 code = 756) MEAN PLATELET VOLUME (BEAKER) 10.0 fL 9.4-12.3 (test code = 754) NUCLEATED RED BLOOD CELLS 0 /100 WBC 0-0 (BEAKER) (test code = 413) CTA, CHEST, ABDOMEN - PELVIS, FOR [id number] 11:23:00Reason for exam:- >evaluate aortic dissectionAddendum BeginsREPORT STATUS:A ADDENDUM: Study reviewed by radiology. Agree with the nonvascular findings as described below. Ultrasound of the pelvis is recommended for further evaluation of the left adnexal cystic lesion. Signed: Devendra Garcia MDReport Verified Date/Time: 02/10/2019 11:23:48 Reading Location: [place] [address] Angio Body Reading RoomAddendum EndsFINAL REPORT CT angiography of the thoracoabdominal aorta and pelvic arteries, 07 February 2019 INDICATION: This is a 73 year old female with with a diagnosis for aortic dissection presents forassessment. This study is performed in an attempt to avoid an invasive procedure. Per [facility], patienthas known aortic dissection, type B distribution. [...] to the contrast sheet scanned in the [facility] for the amount and route of contrast [...] lumen that give rise to the coeliac axis , SMA, and the right renal artery and [...] x 3.9 cm at the mid ascending aorta; 3.7 x 3.6 cm at the distal ascending aorta; 2.8 cm at the mid transverse arch; 2.8 cm at the proximal descending aorta; 3.4 x 3.5 cm at the mid descending aorta; 3.5 x 3.5 cm distal descending thoracic aorta. In the abdomen, the aorta measures 2.9 x 3.0 cm at the supra- mesenteric level; 2.8 x 2.6cm at the mesenteric [...] no obvious endobronchial lesion is seen, and pnvu-jz-lthfvgeb left basal pleural effusion is identified with [...] seen and no hydronephrosis or perirenal fluid c ollection is identified. Subcentimeter hypodensity is identified in the lateral aspect of the left kidney, too small to characterize. Bowel is not [...] No evidence of central pulmonary artery embolism. Oirn-ye-pklndviq left basal pleural effusion. 4. Other findings as described above. 5. Anaddendum will be dictated regarding the non-vascular findings by the [employer] Radiologist. Signed:Shaggy Browneport Verified Date/Time: 02/08/2019 07:24:23 Reading Location: [place] [address] Cardiology MRI [id number] 04:02:00 Test Item Value Reference Range Interpretation Comments MAGNESIUM (BEAKER) (test code = 1.8 mg/dL 1.6-2.6 627) BASIC METABOLIC [id number] 04:02:00 Test Item Value Reference Range Interpretation Comments SODIUM (BEAKER) 136 meq/L 136-145 (test code = 381) POTASSIUM (BEAKER) 4.0 meq/L 3.5-5.1 (test code = 379) CHLORIDE (BEAKER) 104 meq/L 98-107 (test code = 382) CO2 (BEAKER) (test 22 meq/L 22-29 code = 355) BLOOD UREA NITROGEN 16 mg/dL 7-21 (BEAKER) (test code = 354) CREATININE (BEAKER) 0.75 mg/dL 0.57-1.25 (test code = 358) GLUCOSE RANDOM 90 mg/dL 70-105 (BEAKER) (test code = 652) CALCIUM (BEAKER) 9.0 mg/dL 8.4-10.2 (test code = 697) EGFR (BEAKER) (test 76 mL/min/1.73 ESTIMA REED GFR IS code = 1092) sq m NOT ACCURATE CREATININE CLEARANCE IN PREDICTING GLOMERULAR FILTRATION RATE . ESTIMATED GFR I S NOT APPLICABLE FOR DIALYSIS PATIEN TS. CBC (HEMOGRAM ONLY)2019-02-10 03:52:00 Test Item Value Reference Range Interpretation Comments WHITE BLOOD CELL COUNT (BEAKER) 7.4 K/ L 3.5-10.5 (test code = 775) RED BLOOD CELL COUNT (BEAKER) 4.00 M/ L 3.93-5.22 (test code = 761) HEMOGLOBIN (BEAKER) (test code = 11.4 GM/DL 11.2-15.7 410) HEMATOCRIT (BEAKER) (test code = 36.0 % 34.1-44.9 411) MEAN CORPUSCULAR VOLUME (BEAKER) 90.0 fL 79.4-94.8 (test code = 753) MEAN CORPUSCULAR HEMOGLOBIN 28.5 pg 25.6-32.2 (BEAKER) (test code = 751) MEAN CORPUSCULAR HEMOGLOBIN CONC 31.7 GM/DL 32.2-35.5 L (BEAKER) (test code = 752) RED CELL DISTRIBUTION WIDTH 12.8 % 11.7-14.4 (BEAKER) (test code = 412) PLATELET COUNT (BEAKER) (test 412 K/CU MM 150-450 code = 756) MEAN PLATELET VOLUME (BEAKER) 10.3 fL 9.4-12.3 (test code = 754) NUCLEATED RED BLOOD CELLS 0 /100 WBC 0-0 (BEAKER) (test code = 413) [id number] 11:17:00 Test Item Value Reference Range Interpretation Comments MAGNESIUM (BEAKER) (test code = 1.9 mg/dL 1.6-2.6 627) BASIC METABOLIC [id number] 11:17:00 Test Item Value Reference Range Interpretation Comments SODIUM (BEAKER) 136 meq/L 136-145 (test code = 381) POTASSIUM (BEAKER) 3.5 meq/L 3.5-5.1 (test code = 379) CHLORIDE (BEAKER) 102 meq/L 98-107 (test code = 382) CO2 (BEAKER) (test 25 meq/L 22-29 code = 355) BLOOD UREA NITROGEN 15 mg/dL 7-21 (BEAKER) (test code = 354) CREATININE (BEAKER) 0.76 mg/dL 0.57-1.25 (test code = 358) GLUCOSE RANDOM 126 mg/dL 70-105 H (BEAKER) (test code = 652) CALCIUM (BEAKER) 9.0 mg/dL 8.4-10.2 (test code = 697) EGFR (BEAKER) (test 74 mL/min/1.73 ESTIMA REED GFR IS code = 1092) sq m NOT ACCURATE CREATININE CLEARANCE IN PREDICTING GLOMERULAR FILTRATION RATE . ESTIMATED GFR I S NOT APPLICABLE FOR DIALYSIS PATIEN TS. CBC (HEMOGRAM ONLY)2019-02-09 10:46:00 Test Item Value Reference Range Interpretation Comments WHITE BLOOD CELL COUNT (BEAKER) 8.4 K/ L 3.5-10.5 (test code = 775) RED BLOOD CELL COUNT (BEAKER) 4.08 M/ L 3.93-5.22 (test code = 761) HEMOGLOBIN (BEAKER) (test code = 11.8 GM/DL 11.2-15.7 410) HEMATOCRIT (BEAKER) (test code = 36.3 % 34.1-44.9 411) MEAN CORPUSCULAR VOLUME (BEAKER) 89.0 fL 79.4-94.8 (test code = 753) MEAN CORPUSCULAR HEMOGLOBIN 28.9 pg 25.6-32.2 (BEAKER) (test code = 751) MEAN CORPUSCULAR HEMOGLOBIN CONC 32.5 GM/DL 32.2-35.5 (BEAKER) (test code = 752) RED CELL DISTRIBUTION WIDTH 12.5 % 11.7-14.4 (BEAKER) (test code = 412) PLATELET COUNT (BEAKER) (test 426 K/CU MM 150-450 code = 756) MEAN PLATELET VOLUME (BEAKER) 9.7 fL 9.4-12.3 (test code = 754) NUCLEATED RED BLOOD CELLS 0 /100 WBC 0-0 (BEAKER) (test code = 413) [id number] 06:02:00 Test Item Value Reference Range Interpretation Comments PHOSPHORUS (BEAKER) (test code = 3.3 mg/dL 2.3-4.7 604) [id number] 06:02:00 Test Item Value Reference Range Interpretation Comments MAGNESIUM (BEAKER) (test code = 2.0 mg/dL 1.6-2.6 627) BASIC METABOLIC [id number] 06:02:00 Test Item Value Reference Range Interpretation Comments SODIUM (BEAKER) 139 meq/L 136-145 (test code = 381) POTASSIUM (BEAKER) 3.7 meq/L 3.5-5.1 (test code = 379) CHLORIDE (BEAKER) 104 meq/L 98-107 (test code = 382) CO2 (BEAKER) (test 26 meq/L 22-29 code = 355) BLOOD UREA NITROGEN 16 mg/dL 7-21 (BEAKER) (test code = 354) CREATININE (BEAKER) 0.80 mg/dL 0.57-1.25 (test code = 358) GLUCOSE RANDOM 85 mg/dL 70-105 (BEAKER) (test code = 652) CALCIUM (BEAKER) 9.3 mg/dL 8.4-10.2 (test code = 697) EGFR (BEAKER) (test 70 mL/min/1.73 ESTIMA REED GFR IS code = 1092) sq m NOT ACCURATE CREATININE CLEARANCE IN PREDICTING GLOMERULAR FILTRATION RATE . ESTIMATED GFR I S NOT APPLICABLE FOR DIALYSIS PATIEN TS. CBC W/PLT COUNT & AUTO [id number] 04:46:00 Test Item Value Reference Range Interpretation Comments WHITE BLOOD CELL COUNT (BEAKER) 8.7 K/ L 3.5-10.5 (test code = 775) RED BLOOD CELL COUNT (BEAKER) 4.26 M/ L 3.93-5.22 (test code = 761) HEMOGLOBIN (BEAKER) (test code = 12.2 GM/DL 11.2-15.7 410) HEMATOCRIT (BEAKER) (test code = 38.7 % 34.1-44.9 411) MEAN CORPUSCULAR VOLUME (BEAKER) 90.8 fL 79.4-94.8 (test code = 753) MEAN CORPUSCULAR HEMOGLOBIN 28.6 pg 25.6-32.2 (BEAKER) (test code = 751) MEAN CORPUSCULAR HEMOGLOBIN CONC 31.5 GM/DL 32.2-35.5 L (BEAKER) (test code = 752) RED CELL DISTRIBUTION WIDTH 12.9 % 11.7-14.4 (BEAKER) (test code = 412) PLATELET COUNT (BEAKER) (test 486 K/CU MM 150-450 H code = 756) MEAN PLATELET VOLUME (BEAKER) 9.5 fL 9.4-12.3 (test code = 754) NUCLEATED RED BLOOD CELLS 0 /100 WBC 0-0 (BEAKER) (test code = 413) NEUTROPHILS RELATIVE PERCENT 59 % (BEAKER) (test code = 429) LYMPHOCYTES RELATIVE PERCENT 26 % (BEAKER) (test code = 430) MONOCYTES RELATIVE PERCENT 12 % (BEAKER) (test code = 431) EOSINOPHILS RELATIVE PERCENT 3 % (BEAKER) (test code = 432) BASOPHILS RELATIVE PERCENT 1 % (BEAKER) (test code = 437) NEUTROPHILS ABSOLUTE COUNT 5.11 K/ L 1.56-6.13 (BEAKER) (test code = 670) LYMPHOCYTES ABSOLUTE COUNT 2.24 K/ L 1.18-3.74 (BEAKER) (test code = 414) MONOCYTES ABSOLUTE COUNT (BEAKER) 1.02 K/ L 0.24-0.36 H (test code = 415) EOSINOPHILS ABSOLUTE COUNT 0.22 K/ L 0.04-0.36 (BEAKER) (test code = 416) BASOPHILS ABSOLUTE COUNT (BEAKER) 0.06 K/ L 0.01-0.08 (test code = 417) IMMATURE GRANULOCYTES-RELATIVE 1 % 0-1 PERCENT (BEAKER) (test code = 2801) [id number] 05:37:00 Test Item Value Reference Range Interpretation Comments MAGNESIUM (BEAKER) 2.2 mg/dL 1.6-2.6 Specimen slightly (test code = 627) hemolyzed [id number] 05:37:00 Test Item Value Reference Range Interpretation Comments PHOSPHORUS (BEAKER) 3.8 mg/dL 2.3-4.7 Specimen slightly (test code = 604) hemolyzed BASIC METABOLIC [id number] 05:37:00 Test Item Value Reference Range Interpretation Comments SODIUM (BEAKER) 139 meq/L 136-145 (test code = 381) POTASSIUM (BEAKER) 4.3 meq/L 3.5-5.1 Specimen slightly (test code = 379) hemolyzed CHLORIDE (BEAKER) 103 meq/L 98-107 (test code = 382) CO2 (BEAKER) (test 26 meq/L 22-29 code = 355) BLOOD UREA NITROGEN 9 mg/dL 7-21 (BEAKER) (test code = 354) CREATININE (BEAKER) 0.76 mg/dL 0.57-1.25 Specimen slightly (test code = 358) hemolyzed GLUCOSE RANDOM 84 mg/dL 70-105 (BEAKER) (test code = 652) CALCIUM (BEAKER) 9.7 mg/dL 8.4-10.2 (test code = 697) EGFR (BEAKER) (test 74 mL/min/1.73 ESTIMA REED GFR IS code = 1092) sq m NOT ACCURATE CREATININE CLEARANCE IN PREDICTING GLOMERULAR FILTRATION RATE . ESTIMATED GFR I S NOT APPLICABLE FOR DIALYSIS PATIEN TS. CBC W/PLT COUNT & AUTO [id number] 04:41:00 Test Item Value Reference Range Interpretation Comments WHITE BLOOD CELL COUNT (BEAKER) 8.8 K/ L 3.5-10.5 (test code = 775) RED BLOOD CELL COUNT (BEAKER) 3.95 M/ L 3.93-5.22 (test code = 761) HEMOGLOBIN (BEAKER) (test code = 11.3 GM/DL 11.2-15.7 410) HEMATOCRIT (BEAKER) (test code = 35.7 % 34.1-44.9 411) MEAN CORPUSCULAR VOLUME (BEAKER) 90.4 fL 79.4-94.8 (test code = 753) MEAN CORPUSCULAR HEMOGLOBIN 28.6 pg 25.6-32.2 (BEAKER) (test code = 751) MEAN CORPUSCULAR HEMOGLOBIN CONC 31.7 GM/DL 32.2-35.5 L (BEAKER) (test code = 752) RED CELL DISTRIBUTION WIDTH 13.0 % 11.7-14.4 (BEAKER) (test code = 412) PLATELET COUNT (BEAKER) (test 481 K/CU MM 150-450 H code = 756) MEAN PLATELET VOLUME (BEAKER) 9.5 fL 9.4-12.3 (test code = 754) NUCLEATED RED BLOOD CELLS 0 /100 WBC 0-0 (BEAKER) (test code = 413) NEUTROPHILS RELATIVE PERCENT 61 % (BEAKER) (test code = 429) LYMPHOCYTES RELATIVE PERCENT 26 % (BEAKER) (test code = 430) MONOCYTES RELATIVE PERCENT 10 % (BEAKER) (test code = 431) EOSINOPHILS RELATIVE PERCENT 2 % (BEAKER) (test code = 432) BASOPHILS RELATIVE PERCENT 1 % (BEAKER) (test code = 437) NEUTROPHILS ABSOLUTE COUNT 5.32 K/ L 1.56-6.13 (BEAKER) (test code = 670) LYMPHOCYTES ABSOLUTE COUNT 2.32 K/ L 1.18-3.74 (BEAKER) (test code = 414) MONOCYTES ABSOLUTE COUNT (BEAKER) 0.86 K/ L 0.24-0.36 H (test code = 415) EOSINOPHILS ABSOLUTE COUNT 0.16 K/ L 0.04-0.36 (BEAKER) (test code = 416) BASOPHILS ABSOLUTE COUNT (BEAKER) 0.05 K/ L 0.01-0.08 (test code = 417) IMMATURE GRANULOCYTES-RELATIVE 1 % 0-1 PERCENT (BEAKER) (test code = 2801) CBC W/PLT COUNT & AUTO [id number] 05:55:00 Test Item Value Reference Range Interpretation Comments WHITE BLOOD CELL COUNT (BEAKER) 7.6 K/ L 3.5-10.5 (test code = 775) RED BLOOD CELL COUNT (BEAKER) 4.16 M/ L 3.93-5.22 (test code = 761) HEMOGLOBIN (BEAKER) (test code = 11.9 GM/DL 11.2-15.7 410) HEMATOCRIT (BEAKER) (test code = 37.0 % 34.1-44.9 411) MEAN CORPUSCULAR VOLUME (BEAKER) 88.9 fL 79.4-94.8 (test code = 753) MEAN CORPUSCULAR HEMOGLOBIN 28.6 pg 25.6-32.2 (BEAKER) (test code = 751) MEAN CORPUSCULAR HEMOGLOBIN CONC 32.2 GM/DL 32.2-35.5 (BEAKER) (test code = 752) RED CELL DISTRIBUTION WIDTH 13.0 % 11.7-14.4 (BEAKER) (test code = 412) PLATELET COUNT (BEAKER) (test 508 K/CU MM 150-450 H code = 756) MEAN PLATELET VOLUME (BEAKER) 9.4 fL 9.4-12.3 (test code = 754) NUCLEATED RED BLOOD CELLS 0 /100 WBC 0-0 (BEAKER) (test code = 413) NEUTROPHILS RELATIVE PERCENT 67 % (BEAKER) (test code = 429) LYMPHOCYTES RELATIVE PERCENT 21 % (BEAKER) (test code = 430) MONOCYTES RELATIVE PERCENT 10 % (BEAKER) (test code = 431) EOSINOPHILS RELATIVE PERCENT 1 % (BEAKER) (test code = 432) BASOPHILS RELATIVE PERCENT 0 % (BEAKER) (test code = 437) NEUTROPHILS ABSOLUTE COUNT 5.07 K/ L 1.56-6.13 (BEAKER) (test code = 670) LYMPHOCYTES ABSOLUTE COUNT 1.57 K/ L 1.18-3.74 (BEAKER) (test code = 414) MONOCYTES ABSOLUTE COUNT (BEAKER) 0.79 K/ L 0.24-0.36 H (test code = 415) EOSINOPHILS ABSOLUTE COUNT 0.10 K/ L 0.04-0.36 (BEAKER) (test code = 416) BASOPHILS ABSOLUTE COUNT (BEAKER) 0.03 K/ L 0.01-0.08 (test code = 417) IMMATURE GRANULOCYTES-RELATIVE 1 % 0-1 PERCENT (BEAKER) (test code = 2801) [id number] 05:41:00 Test Item Value Reference Range Interpretation Comments PHOSPHORUS (BEAKER) (test code = 3.5 mg/dL 2.3-4.7 604) [id number] 05:41:00 Test Item Value Reference Range Interpretation Comments MAGNESIUM (BEAKER) (test code = 1.8 mg/dL 1.6-2.6 627) BASIC METABOLIC [id number] 05:41:00 Test Item Value Reference Range Interpretation Comments SODIUM (BEAKER) 138 meq/L 136-145 (test code = 381) POTASSIUM (BEAKER) 3.7 meq/L 3.5-5.1 (test code = 379) CHLORIDE (BEAKER) 103 meq/L 98-107 (test code = 382) CO2 (BEAKER) (test 26 meq/L 22-29 code = 355) BLOOD UREA NITROGEN 10 mg/dL 7-21 (BEAKER) (test code = 354) CREATININE (BEAKER) 0.68 mg/dL 0.57-1.25 (test code = 358) GLUCOSE RANDOM 102 mg/dL 70-105 (BEAKER) (test code = 652) CALCIUM (BEAKER) 9.4 mg/dL 8.4-10.2 (test code = 697) EGFR (BEAKER) (test 85 mL/min/1.73 ESTIMA REED GFR IS code = 1092) sq m NOT ACCURATE CREATININE CLEARANCE IN PREDICTING GLOMERULAR FILTRATION RATE . ESTIMATED GFR I S NOT APPLICABLE FOR DIALYSIS PATIEN TS. RAD, CHEST, 1 VIEW, NON [id number] 00:42:00Reason for exam:->evaluate effusionShould this be performed at the bedside?->YesFINAL REPORT INDICATION: evaluate effusion COMPARISON: None TECHNIQUE: Single frontal view of the chest. FINDINGS: Lungs and pleura: Clear lungs. No effusion.Heart and mediastinum: Normal heart size. Unremarkable mediastinal contours.Osseous structures: No acute abnormality.Other: None. IMPRESSION: No acute intrathoracic abnormality. Signed: Verona Wiseman[place] Verified Da te/Time: 02/05/2019 00:42:32 Reading Location: [facility] C013 Neuro Reading Room C METABOLIC [id number] 21:52:00 Test Item Value Reference Range Interpretation Comments SODIUM (BEAKER) 137 meq/L 136-145 (test code = 381) POTASSIUM (BEAKER) 4.1 meq/L 3.5-5.1 (test code = 379) CHLORIDE (BEAKER) 103 meq/L 98-107 (test code = 382) CO2 (BEAKER) (test 22 meq/L 22-29 code = 355) BLOOD UREA NITROGEN 11 mg/dL 7-21 (BEAKER) (test code = 354) CREATININE (BEAKER) 0.70 mg/dL 0.57-1.25 (test code = 358) GLUCOSE RANDOM 114 mg/dL 70-105 H (BEAKER) (test code = 652) CALCIUM (BEAKER) 9.3 mg/dL 8.4-10.2 (test code = 697) EGFR (BEAKER) (test 82 mL/min/1.73 ESTIMA REED GFR IS code = 1092) sq m NOT ACCURATE CREATININE CLEARANCE IN PREDICTING GLOMERULAR FILTRATION RATE . ESTIMATED GFR I S NOT APPLICABLE FOR DIALYSIS PATIEN TS. [id number] 21:43:00 Test Item Value Reference Range Interpretation Comments PROTIME (BEAKER) (test code = 13.3 seconds 11.7-14.7 759) INR (BEAKER) (test code = 370) 1.0 <=5.9 PARTIAL THROMBOPLASTIN TIME < seconds 22.5-36.0 L (BEAKER) (test code = 760) RECOMMENDED COUMADIN/WARFARIN INR THERAPY RANGESSTANDARD DOSE: 2.0 - 3.0 Includes: PROPHYLAXIS forvenous thrombosis, systemic embolization; TREATMENT for venous thrombosis and/or pulmonary embolus.HIGH RISK: Target INR is 2.5-3.5 for patients with mechanical heart valves.[id number] 21:39:00 Test Item Value Reference Range Interpretation Comments PHOSPHORUS (BEAKER) (test code = 3.2 mg/dL 2.3-4.7 604) [id number] 21:39:00 Test Item Value Reference Range Interpretation Comments MAGNESIUM (BEAKER) (test code = 2.5 mg/dL 1.6-2.6 627) PROTHROMBIN [id number] 21:37:00 Test Item Value Reference Range Interpretation Comments PROTIME (BEAKER) (test code = 13.3 seconds 11.7-14.7 759) INR (BEAKER) (test code = 370) 1.0 <=5.9 RECOMMENDED COUMADIN/WARFARIN INR THERAPY RANGESSTANDARD DOSE: 2.0 - 3.0 Includes: PROPHYLAXIS forvenous thrombosis, systemic embolization; TREATMENT for venous thrombosis and/or pulmonary embolus.HIGH RISK: Target INR is 2.5-3.5 for patients with mechanical heart valves.CBC W/PLT COUNT & AUTO DIFFERENTIAL 2019-02-04 21:23:00 Test Item Value Reference Range Interpretation Comments WHITE BLOOD CELL COUNT (BEAKER) 7.6 K/ L 3.5-10.5 (test code = 775) RED BLOOD CELL COUNT (BEAKER) 4.50 M/ L 3.93-5.22 (test code = 761) HEMOGLOBIN (BEAKER) (test code = 13.0 GM/DL 11.2-15.7 410) HEMATOCRIT (BEAKER) (test code = 40.7 % 34.1-44.9 411) MEAN CORPUSCULAR VOLUME (BEAKER) 90.4 fL 79.4-94.8 (test code = 753) MEAN CORPUSCULAR HEMOGLOBIN 28.9 pg 25.6-32.2 (BEAKER) (test code = 751) MEAN CORPUSCULAR HEMOGLOBIN CONC 31.9 GM/DL 32.2-35.5 L (BEAKER) (test code = 752) RED CELL DISTRIBUTION WIDTH 12.8 % 11.7-14.4 (BEAKER) (test code = 412) PLATELET COUNT (BEAKER) (test 519 K/CU MM 150-450 H code = 756) MEAN PLATELET VOLUME (BEAKER) 9.6 fL 9.4-12.3 (test code = 754) NUCLEATED RED BLOOD CELLS 0 /100 WBC 0-0 (BEAKER) (test code = 413) NEUTROPHILS RELATIVE PERCENT 63 % (BEAKER) (test code = 429) LYMPHOCYTES RELATIVE PERCENT 24 % (BEAKER) (test code = 430) MONOCYTES RELATIVE PERCENT 10 % (BEAKER) (test code = 431) EOSINOPHILS RELATIVE PERCENT 1 % (BEAKER) (test code = 432) BASOPHILS RELATIVE PERCENT 1 % (BEAKER) (test code = 437) NEUTROPHILS ABSOLUTE COUNT 4.80 K/ L 1.56-6.13 (BEAKER) (test code = 670) LYMPHOCYTES ABSOLUTE COUNT 1.86 K/ L 1.18-3.74 (BEAKER) (test code = 414) MONOCYTES ABSOLUTE COUNT (BEAKER) 0.74 K/ L 0.24-0.36 H (test code = 415) EOSINOPHILS ABSOLUTE COUNT 0.09 K/ L 0.04-0.36 (BEAKER) (test code = 416) BASOPHILS ABSOLUTE COUNT (BEAKER) 0.05 K/ L 0.01-0.08 (test code = 417) IMMATURE GRANULOCYTES-RELATIVE 1 % 0-1 PERCENT (BEAKER) (test code = 0293)
[2022-04-12 02:17] LABS: Absolute Lymphocytes (CBC) 6.1 K/uL (0.7-4.9); Hematocrit 34.2 % (36.0-45.0); Lymphocytes % 44.5 % (15.3-44.8); MPV 7.5 fL (7.6-11.3); RBC Red Blood Cell Count 4.01 M/uL (3.86-4.86)
[2022-04-12 02:20] LABS: Protime INR 0.99
[2022-04-12 02:29] LABS: Potassium 3.6 mmol/L (3.5-5.1)
--- NOTE | 2022-04-12 02:43 | ER ---
Nurse's Notes [facility] Name: Marlene Valderrama Age: 76 yrs Sex: Female : 1945 Arrival Date: 04/12/2022 Time: 00:43 Bed 18 Private MD: Diagnosis: Traumatic subdural hemorrhage with loss of consciousness of unspecified duration;Contusion of lip and oral cavity Presentation: 04/12 00:46 Chief complaint: EMS states: Pt reports walking her dog and loosing her balance. jbSusy Appears to have a laceration to her head and has one to her upper and lower lip. Reports LOC, pt reports taking a blood thinner. Coronavirus screen: At this time, the client does not indicate any symptoms associated with coronavirus-19. Ebola Screen: No symptoms or risks identified at this time. Initial Sepsis Screen: Does the patient meet any 2 criteria? No. Patient's initial sepsis screen is negative. Does the patient have a suspected source of infection? No. Patient's initial sepsis screen is negative. Risk Assessment: Do you want to hurt yourself or someone else? Patient reports no desire to harm self or others. Onset of symptoms was April 12, 2022. Transition of care: patient was not received from another setting of care. 00:46 Method Of Arrival: EMS: [facility] jb4 00:46 Acuity: IGOR 2 jb4 00:50 Care prior to arrival: None. Mechanism of Injury: Fall from standing position. Trauma jb4 event details: Injury occurred in the [facility]. Trauma Activation: Alert Physician: ED Physician; Name: Efe; Notified At: 00:45; Arrived At: 00:45 Physician: General Surgeon; Name: ; Notified At: 00:45; Arrived At: Physician: Radiology; Name: Nurys; Notified At: 00:45; Arrived At: 00:45 Physician: Respiratory; Name: ; Notified At: 00:45; Arrived At: Physician: Lab; Name: ; Notified At: 00:45; Arrived At: Historical: - Allergies: 00:53 No Known Allergies; jb4 - Home Meds: 00:53 unkown BP med [Active]; Unknown High Cholesterol Med [Active]; Synthroid Oral [Active]; jb4 unknown blood thinner [Active]; - PMHx: 00:53 HTN; Hypothyroidism; jb4 - PSHx: 00:53 partial thyroidectomy; jb4 - Immunization history:: Adult Immunizations unknown. - Immunization history: Last tetanus immunization: unknown. - Social history:: Smoking status: Patient denies any tobacco usage or history of. - Family history:: not pertinent. - Hospitalizations: : No recent hospitalization is reported. Screenin:50 Abuse screen: Denies threats or abuse. Nutritional screening: No deficits noted. jb4 Tuberculosis screening: No symptoms or risk factors identified. Fall risk At risk due to prior history of falls. Primary Survey: 00:50 NO uncontrolled hemorrhage observed. A: The client is awake and alert. The airway is jb4 patent. Breathing/Chest: Spontaneous respiratory effort, equal unlabored respirations, breath sounds clear bilaterally, regular pattern, symmetrical chest rise and fall. Circulation: No external hemorrhage present. Regular and strong central pulse, skin warm/dry/normal color. Disability Pupils are equal, round, reactive to light and accommodation. Exposure/Environment: All clothing and personal items were removed. Forensic evidence collection is not deemed to be indicated at this time. Items placed in patient belonging bag. 02:00 Reassessment Alertness and Airway: Awake and alert. The airway is patent. Breathing: jb4 Spontaneous respiratory effort, equal unlabored respirations, breath sounds clear bilaterally, regular pattern with symmetrical chest rise and fall. Circulation: No external hemorrhage noted. Regular and strong central pulse, skin warm/dry/normal color. Disability: Pupils Pupils are equal, round, reactive to light and accomodation. Alert. Assessment: 00:50 General: Appears in no apparent distress. uncomfortable, Behavior is calm, cooperative, jb4 appropriate for age. Pain: Complains of pain in mouth Pain does not radiate. Pain currently is 9 out of 10 on a pain scale. Neuro: Level of Consciousness is awake, alert, obeys commands, Oriented to person, place, time, situation. EENT: Laceration to lips noted. Cardiovascular: Patient's skin is warm and dry. Respiratory: Airway is patent Respiratory effort is even, unlabored, Respiratory pattern is regular, symmetrical. Derm: Skin is pink, warm \T\ dry. Musculoskeletal: Circulation, motion, and sensation intact. Range of motion: intact in all extremities. Injury Description: Laceration sustained to upper lip and lower lip is clean, was sustained 30-60 minutes ago. moderate bleeding noted at this time. Hematoma to the right side of the forehead. Vital Signs: 00:46 BP 201 / 89; Pulse 66; Resp 16; Temp 98.8(TE); Pulse Ox 99% on R/A; Weight 71.21 kg jb4 (R); Height 5 ft. 1 in. (154.94 cm) (R); Pain 9/10; 02:30 BP 150 / 117; Pulse 79; Resp 19; Pulse Ox 98% on R/A; jb4 02:50 BP 175 / 92; Pulse 75; Resp 20; Pulse Ox 99% on R/A; jb4 00:46 Body Mass Index 29.66 (71.21 kg, 154.94 cm) jb4 [place] Coma Score: 00:50 Eye Response: spontaneous(4). Verbal Response: oriented(5). Motor Response: obeys jb4 commands(6). Total: 15. 02:30 Eye Response: spontaneous(4). Verbal Response: oriented(5). Motor Response: obeys jb4 commands(6). Total: 15. 02:38 Eye Response: spontaneous(4). Verbal Response: oriented(5). Motor Response: obeys rn commands(6). Total: 15. 02:38 Eye Response: spontaneous(4). Verbal Response: oriented(5). Motor Response: obeys rn commands(6). Total: 15. 02:50 Eye Response: spontaneous(4). Verbal Response: oriented(5). Motor Response: obeys jb4 commands(6). Total: 15. Trauma Score (Adult): 00:50 Eye Response: spontaneous(1); Verbal Response: oriented(1); Motor Response: obeys jb4 commands(2); Systolic BP: > 89 mm Hg(4); Respiratory Rate: 10 to 29 per min(4); [place] Score: 15; Trauma Score: 12 02:30 Eye Response: spontaneous(1); Verbal Response: oriented(1); Motor Response: obeys jb4 commands(2); Systolic BP: > 89 mm Hg(4); Respiratory Rate: 10 to 29 per min(4); Tavon Score: 15; Trauma Score: 12 02:50 Eye Response: spontaneous(1); Verbal Response: oriented(1); Motor Response: obeys jb4 commands(2); Systolic BP: > 89 mm Hg(4); Respiratory Rate: 10 to 29 per min(4); Tavon Score: 15; Trauma Score: 12 ED Course: 00:43 Patient arrived in ED. rn 00:43 Biju Wilks MD is Attending Physician. rn 00:46 Luigi Ross, MALINDA is Primary Nurse. jb4 00:50 Triage completed. jb4 00:50 Patient has correct armband on for positive identification. Bed in low position. Call jb4 light in reach. Side rails up X 1. 00:50 Patient maintains SpO2 saturation greater than 95% on room air. Thermoregulation: warm jb4 blanket given to patient. 00:53 Arm band placed on right wrist. jb4 01:22 CT Facial Bones W/O Con In Process Unspecified. EDMS 01:24 CT Head C Spine In Process Unspecified. EDMS 01:40 Missed attempt(s): 22 gauge in right antecubital area. lp1 02:00 Initial lab(s) drawn, by me, sent to lab. Accessed peripheral vein via ultrasound, lp1 utilizing dynamic ultrasound technique using ,sterile technique, per hospital protocol. Clean \T\ dry. Dressing intact. Good blood return. Flushes easily. 22 g to L AC. 02:21 initiated a transfer with Dawson Young from [facility]. mw2 02:28 administrative approval given by Dawson Young/ patient has been accepted to [address] to the ER/ Dr. Messer accepted the patient in transfer/report to be called to [phone]. 02:34 [facility] ETA 15 to 20 minutes. mw2 02:51 IV discontinued, intact, bleeding controlled, No redness/swelling at site. Pressure jb4 dressing applied. Inserted saline lock: 22 gauge in left hand, using aseptic technique. 03:00 No provider procedures requiring assistance completed. jb4 Administered Medications: No medications were administered Output: 02:50 Urine: 2ml (Voided); Total: 2ml. jb4 Outcome: 02:43 ER care complete, transfer ordered by . rn 02:50 Transferred by ground EMS to [facility], Transfer form completed. X-rays sent jb4 w/ patient. 02:50 Condition: stable 02:50 Discharge instructions given to patient, family, Instructed on the need for transfer, Demonstrated understanding of instructions. 02:50 Patient's length of stay was not longer than 2 hours. 03:00 Patient left the ED. jb4 Signatures: Dispatcher [employer] EDMS Biju Wilks MD MD rn Pena, Laura RN RN lp1 Luigi Ross RN RN jb4 Stevie Vega mw2
--- NOTE | 2022-04-12 02:43 | EDPHYS ---
Physician Documentation [facility] Name: Marlene Valderrama Age: 76 yrs Sex: Female : 1945 Arrival Date: 04/12/2022 Time: 00:43 Bed 18 Private MD: ED Physician Biju Wilks HPI: 04/12 02:38 This 76 yrs old Unknown Female presents to ER via EMS with complaints of head injury. rn 02:38 The patient or guardian reports swelling. rn 02:38 The complaints affect the forehead and mouth. Onset: The symptoms/episode rn began/occurred just prior to arrival. Associated signs and symptoms: Loss of consciousness: This patient experience a loss of consciousness, Pertinent positives: loss of conciousness, headache, Pertinent negatives: incontinence, neck pain, seizure, shortness of breath, vomiting. Severity of symptoms: At their worst the symptoms were mild, in the emergency department the symptoms are unchanged. The patient has not experienced similar symptoms in the past. The patient has not recently seen a physician. Pt reports fall, on concrete, struck face, + LOC, no blood thinners, reports head pain and mouth pain but no extremity injuries. . Historical: - Allergies: 00:53 No Known Allergies; jb4 - Home Meds: 00:53 unkown BP med [Active]; Unknown High Cholesterol Med [Active]; Synthroid Oral [Active]; jb4 unknown blood thinner [Active]; - PMHx: 00:53 HTN; Hypothyroidism; jb4 - PSHx: 00:53 partial thyroidectomy; jb4 - Immunization history:: Adult Immunizations unknown. - Immunization history: Last tetanus immunization: unknown. - Social history:: Smoking status: Patient denies any tobacco usage or history of. - Family history:: not pertinent. - Hospitalizations: : No recent hospitalization is reported. ROS: 02:38 Constitutional: Negative for fever, chills, and weight loss, Eyes: + pain and swelling rn above right eye Neck: Negative for injury, pain, and swelling, Cardiovascular: Negative for chest pain, palpitations, and edema, Respiratory: Negative for shortness of breath, cough, wheezing, and pleuritic chest pain, Abdomen/GI: Negative for abdominal pain, nausea, vomiting, diarrhea, and constipation, Back: Negative for injury and pain, MS/Extremity: Negative for injury and deformity, Neuro: + headache, + LOC Exam: 02:38 Constitutional: This is a well developed, well nourished patient who is awake, alert, rn and in no acute distress. Head/Face: + swelling and hematoma right forehead without laceration, + contusions of both lips with some minor bleeding upper/inner lip with stellate laceration, no arterial bleeding noted. Eyes: + ecchymosis and contusion above right eyebrow. ENT: No dental trauma Neck: No midline cervical tenderness Cardiovascular: Regular rate and rhythm. No pulse deficits. Respiratory: No increased work of breathing, no retractions or nasal flaring. Abdomen/GI: Soft, non-tender Skin: Warm, dry with normal turgor. Normal color with no rashes, no lesions, and no evidence of cellulitis. MS/ Extremity: Pulses equal, no cyanosis. Neurovascular intact. Full, normal range of motion. Equal circumference. Neuro: Awake and alert, GCS 15, oriented to person, place, time, and situation. Vital Signs: 00:46 BP 201 / 89; Pulse 66; Resp 16; Temp 98.8(TE); Pulse Ox 99% on R/A; Weight 71.21 kg jb4 (R); Height 5 ft. 1 in. (154.94 cm) (R); Pain 9/10; 02:30 BP 150 / 117; Pulse 79; Resp 19; Pulse Ox 98% on R/A; jb4 02:50 BP 175 / 92; Pulse 75; Resp 20; Pulse Ox 99% on R/A; jb4 00:46 Body Mass Index 29.66 (71.21 kg, 154.94 cm) jb4 Tavon Coma Score: 00:50 Eye Response: spontaneous(4). Verbal Response: oriented(5). Motor Response: obeys jb4 commands(6). Total: 15. 02:30 Eye Response: spontaneous(4). Verbal Response: oriented(5). Motor Response: obeys jb4 commands(6). Total: 15. 02:38 Eye Response: spontaneous(4). Verbal Response: oriented(5). Motor Response: obeys rn commands(6). Total: 15. 02:38 Eye Response: spontaneous(4). Verbal Response: oriented(5). Motor Response: obeys rn commands(6). Total: 15. 02:50 Eye Response: spontaneous(4). Verbal Response: oriented(5). Motor Response: obeys jb4 commands(6). Total: 15. Trauma Score (Adult): 00:50 Eye Response: spontaneous(1); Verbal Response: oriented(1); Motor Response: obeys jb4 commands(2); Systolic BP: > 89 mm Hg(4); Respiratory Rate: 10 to 29 per min(4); Tavon Score: 15; Trauma Score: 12 02:30 Eye Response: spontaneous(1); Verbal Response: oriented(1); Motor Response: obeys jb4 commands(2); Systolic BP: > 89 mm Hg(4); Respiratory Rate: 10 to 29 per min(4); [place] Score: 15; Trauma Score: 12 02:50 Eye Response: spontaneous(1); Verbal Response: oriented(1); Motor Response: obeys jb4 commands(2); Systolic BP: > 89 mm Hg(4); Respiratory Rate: 10 to 29 per min(4); Tavon Score: 15; Trauma Score: 12 MDM: 00:43 Patient medically screened. rn 02:38 Differential diagnosis: Contusion of Hematoma on Laceration of Intracranial bleed- rn Concussion cerebral contusion. Data reviewed: vital signs, nurses notes, radiologic studies, CT scan, and as a result, I will admit patient. Counseling: I had a detailed discussion with the patient and/or guardian regarding: the historical points, exam findings, and any diagnostic results supporting the discharge/admit diagnosis, lab results, radiology results, the need to transfer to another facility, for higher level of care, [facility] does not immediately have the required specialist. Response to treatment: the patient's symptoms have mildly improved after treatment, and as a result, I will admit patient. Admission orders: after a detailed discussion of the patient's condition and case, the admit orders are written by me. ED course: Pt with acute subdural hematoma, accepted for transfer to [facility] for trauma. . ED course: Bleeding stopped upper/inner lip with surgicel. . 04/12 00:45 Order name: CBC with Diff rn 04/12 00:45 Order name: Basic Metabolic Panel rn 04/12 00:45 Order name: CT Head C Spine rn 04/12 00:45 Order name: Protime (+inr) rn 04/12 00:45 Order name: Ptt, Activated rn 04/12 02:24 Order name: Manual Differential EDMS 04/12 00:45 Order name: CT Facial Bones W/O Con rn 04/12 00:45 Order name: EKG; Complete Time: 00:45 rn 04/12 00:45 Order name: EKG - Nurse/Tech; Complete Time: 02:33 rn 04/12 00:45 Order name: Cardiac monitoring; Complete Time: 00:56 rn 04/12 00:45 Order name: O2 Sat Monitoring; Complete Time: 00:56 rn Administered Medications: No medications were administered Disposition Summary: 04/12/22 02:43 Transfer Ordered Transfer Location: [facility] rn Reason: Higher level of care rn Condition: Stable rn Problem: new rn Symptoms: have improved rn Accepting Physician: (04/12/22 03:00) jb4 Diagnosis - Traumatic subdural hemorrhage with loss of consciousness of unspecified duration rn - Contusion of lip and oral cavity rn Forms: - Medication Reconciliation Form rn - SBAR form rn Signatures: Dispatcher [employer] EDMS Biju Wilks MD MD rn Bryson, James RN RN jb4 Corrections: (The following items were deleted from the chart) 03:00 02:43 rn jb4
[2022-04-12 03:00] LABS: Blood Morphology Comment NOT SEEN (NOT SEEN); Platelet Estimate ADEQ; Smudge Cells 5
[2022-04-12 03:08] VITALS: TEMP 98.8
[2022-04-12 03:11] VITALS: BP 175/92; O2SAT 99
--- NOTE | 2022-04-12 20:13 | RAD REPORT ---
EXAM DESCRIPTION: Head C Spine Mpr Wo Con CLINICAL HISTORY: Fall, head injury, possible LOC COMPARISON: None Available. TECHNIQUE: Multiple helical axial tomographic images were obtained of the head and cervical spine wi thout intravenous contrast. This exam was performed according to our departmental dose-optimization p rogram, which includes automated exposure control, adjustment of the mA and/or kV according to patien t size and/or use of iterative reconstruction technique. FINDINGS: There is an acute left parafalcine subdural hemorrhage along the anterior falx measuring 6 mm in width. Generalized brain volume loss is demonstrated. There is patchy hypoattenuation in the c erebral white matter suggesting chronic microvascular ischemic changes. No mass. No midline shift. No ventriculomegaly. Salmeron-white matter differentiation is maintained. Paranasal sinuses are clear. Mastoid air cells and middle ear spaces are clear. Orbits and orbital co ntents are unremarkable. No acute calvarial fracture. No evidence of an acute fracture of the cervical spine. Vertebral body heights appear maintained. Mul tilevel disc space narrowing is demonstrated. There is mild osteophyte formation at C6-C7. Facet join t ankylosis at C2-C3 and C3-C4 on the right is noted. Facet joint degenerative changes are present. F rontal scalp hematoma is present. Aortic stent is present. IMPRESSION: 1. Acute subdural hemorrhage along the anterior falx. 2. No evidence of an acute fracture of the cervical spine. 3. Cervical spine degenerative changes. THIS REPORT CONTAINS FINDINGS THAT MAY BE CRITICAL TO PATIENT CARE: The findings were verbally discus sed via telephone conference with Dr. Wilks by Dr. Jeffers at 0200 hours central time on April 12, 2022. T he results were acknowledged and understood. Electronically signed by: Cuong Jeffers MD 04/12/2022 2:02 AM CDT Due to temporary technical issues with the PACS/Fluency reporting system, reports are being signed by the in house radiologists without review as a courtesy to insure prompt reporting. The interpreting radiologist is fully responsible for the content of the report.
--- NOTE | 2022-04-12 20:38 | RAD REPORT ---
EXAM DESCRIPTION: CT Maxillofacial Without Intravenous Contrast CLINICAL HISTORY: Facial trauma, blunt TECHNIQUE: Axial computed tomography images of the face without intravenous contrast. Sagittal and coronal reformatted images were created and reviewed. This CT exam was performed using one or more of the following dose reduction techniques: automated exposure control, adjustment of the mA and/o r kV according to patient size, and/or use of iterative reconstruction technique. COMPARISON: No relevant prior studies available. FINDINGS: Bones/joints: Mildly angulated bilateral nasal bone fracture deformities which appear fa irly well corticated. Soft tissues: Moderate right forehead soft tissue contusion. Orbits: Unremarkable. Sinuses: Minimal bilateral maxillary sinus mucosal thickening. No air-fluid levels. Brain: Left anterior parafalcine subdural hemorrhage measuring 6 mm in maximal thickness. IMPRESSION: 1. Moderate right forehead soft tissue contusion. Mildly angulated bilateral nasal b one fracture deformities which appear fairly well corticated. No appreciable perinasal soft tissue sw elling suggesting remote trauma. Please correlate with point tenderness. 2. Left anterior parafalcine subdural hemorrhage. Please refer to dedicated head CT report for benjamin tional details. Electronically signed by: Jerod Jenkins MD 04/12/2022 1:48 AM CDT Due to temporary technical issues with the PACS/Fluency reporting system, reports are being signed by the in house radiologists without review as a courtesy to insure prompt reporting. The interpreting radiologist is fully responsible for the content of the report.
--- NOTE | 2022-04-14 11:55 | EKG ---
Test Date: 2022-04-12 Test Time: 02:24:58 Area Representative: ANNIE MEASUREMENT RESULTS: Intervals: Rate: 76 AK: 146 QRSD: 82 QT: 414 QTc: 465 [place]: P: 43 AK: 146 QRS: 7 T: 57 INTERPRETIVE STATEMENTS: Normal sinus rhythm Normal ECG Compared to ECG 03/25/2019 13:36:26 Sinus tachycardia no longer present Ventricular premature complex(es) no longer present Myocardial infarct finding no longer present Electronically Signed On 04-14-22 11:50:38 CDT by Jose Raza
== END 2022-04-12 03:00 | disposition short-term general hospital (02) ==
LOC: ER 00:41
DX: G95.19 Other vascular myelopathies (principal); S06.5X9A Traumatic subdural hemorrhage with loss of consciousness of unspecified duration, initial encounter; W18.30XA Fall on same level, unspecified, initial encounter; Y93.89 Activity, other specified; Y92.9 Unspecified place or not applicable; S00.531A Contusion of lip, initial encounter; S00.532A Contusion of oral cavity, initial encounter; I10 Essential (primary) hypertension; E03.9 Hypothyroidism, unspecified
CPT/HCPCS: 36415; 70450; 70486; 72125; 76377; 80048; 85025; 85610; 85730; 93005; 99285

== ENCOUNTER 2022-06-15 12:39 | Emergency (ER) | payer OTHER ==
--- OUTSIDE RECORDS SUMMARY | 2022-06-15 12:43 | XMS REPORT | Continuity of Care Document ---
:1945 Author Organization [facility] t Address [address] [place] [address] [address]. [address] [place] [address] Care Team Providers Name Role Phone Jey Mora Primary Care Physician Lai Driver MD Attending Clinician RAINA RIVERA Attending Clinician Unavailable RAINA RIVERA Admitting Clinician Unavailable Payers Payer Name Policy Type Policy Number Effective Date Expiration Date S varun [employer] MEDICARE PPO [id number] 2021 00:00:00 Problems This patient has no known problems. Allergies, Adverse Reactions, Alerts Allergy Allergy Status Severity Reaction(s) Onset Inactive Treating Comm ents Source Name Type Date Date Clinician No Known DA Active [facility] Social History Social Habit Start Date Stop Date Quantity Comments Source Sex Assigned At [birth year] [facility] 00:00:00 00:00:00 Smoking Status Start Date Stop Date Source Tobacco smoking consumption unknown [facility] Medications This patient has no known medications. Procedures This patient has no known procedures. Encounters Start End Encounter Admission Attending Care Care Encounter Source Date/Time Date/Time Type Type Clinicians Facility Department ID 2022-04-29 Outpatient [facility] [id number] [place] 09:41:12 [id number] [facility] 2022-04-17 Outpatient [facility] [id number] [place] 11:17:18 [id number] [facility] 2022-04-15 Outpatient [facility] [id number] [place] 06:53:04 [id number] [facility] 2022-04-14 Outpatient [facility] [id number] [place] 13:20:29 [id number] [facility] 2022-04-17 2022-04-17 Telephone LEO Driver [id number] [place] 00:00:00 00:00:[address] [id number] [facility] [id number] Results Test Description Test Time Test Comments Results Result Sour e Comments CTA, CHEST, 2019-02-21 Reason for Addendum BeginsREPORT ABDOMEN - PELVIS, 13:06:00 exam:->s/p STATUS:A PATIENT ID: FOR DISSECTION TEVAR [id number] ADDENDUM: Study reviewed by radiology. Agree with the nonvascular findings as described below. Ultrasound of the pelvis is recommended for further evaluation of the left adnexal cystic lesion. Signed: Devendra Garcia MDReport Verified Date/Time: 02/21/2019 13:06:06 Reading Location: [place] [address] Angio Body Reading RoomAddendum EndsFINAL REPORT CT [...] been described in prior addendum by the Health Outreach Worker Radiologist and dedicated ultrasound scan should be [...] been described in prior addendum, and the Health Outreach Worker Radiologist recommended dedicated pelvic ultrasound scan for further tissue as this is an abnormal finding for patient's age group. 4. An addendum will be dictated regarding the non-vascular findings by the Health Outreach Worker Radiologist. Signed: Shaggy Brown Verified Date/Time: 02/20/2019 08:12:32 Reading Location: [facility] P047 Cardiology MRI , CHEST, 1 2019-02-19 Reason for FINAL REPORT PATIENT VIEW, NON DEPT 12:36:00 exam:->post ID: [id number] opShould this Comparison: 02/18/2019 be performed at TECHNIQUE: Single view the of the chest FINDINGS: bedside?->Yes Left pleural effusion and adjacent airspace disease again noted. Lungs otherwise clear. Cardiac silhouette is enlarged. Thoracic aortic stent graft noted. Right internal jugular central line is stable. Signed: Sha Escalona Verified Date/Time: 02/19/2019 12:36:50 Reading Location: [facility] C013X Ortho Consult Reading Room PHORUS 2019-02-19 06:33:00 Test Item Value Reference Range Interpretation Comme nts PHOSPHORUS (BEAKER) (test code = 604) 2.5 mg/dL 2.3-4.7 [id number] 06:33:00 Test Item Value Reference Range Interpretation Comments MAGNESIUM (BEAKER) (test code = 1.5 mg/dL 1.6-2.6 L 627) BASIC METABOLIC [id number] 06:33:00 Test Item Value Reference Range Interpretation [...] NOT APPLICABLE FOR DIALYSIS PATIEN TS. PROTHROMBIN [id number] 06:20:00 Test Item Value Reference Range Interpretation Comments PROTIME (BEAKER) (test code = 14.2 seconds 11.7-14.7 759) INR (BEAKER) (test code = 370) 1.1 <=5.9 RECOMMENDED COUMADIN/WARFARIN INR THERAPY RANGESSTANDARD DOSE: 2.0 - 3.0 Includes: PROPHYLAXIS for venous thrombosis, systemic embolization; TREATMENT for venous thrombosis and/or pulmonary embolus.HIGH RISK: Target INR is 2.5-3.5 for patients with mechanical heart valves.[id number] 06:20:00 Test Item Value Reference Range Interpretation [...] = 413) RAD, CHEST, 1 VIEW, NON [id number] 08:41:00Reason for exam:->post opShould this be performed at the bedside?->YesFINAL REPORT Portable chest. CLINICAL HISTORY: post op. COMPARISON STUDY: Chestx-ray from yesterday. FINDINGS: The cardiac silhouette is enlarged. An aortic stent graft is seen. The pulmonary parenchyma demonstrates increased interstitial markings with patchy airspace opacities in the left side and blunting of the left costophrenic angle, stable from previous. The support lines and tubes are unchanged. No pneumothorax is seen. Degenerative changes are noted. IMPRESSION: No significant change. Signed: Zeus Ruiz MDReport Verified Date/Time: 02/18/2019 08:41:53 Reading Location: [facility] Radiology Reading Room BASIC METABOLIC [id number] 06:08:00 Test Item Value Reference Range Interpretation [...] S NOT APPLICABLE FOR DIALYSIS PATIEN TS. [id number] 06:07:00 Test Item Value Reference Range Interpretation Comments PHOSPHORUS (BEAKER) (test code = 2.8 mg/dL 2.3-4.7 604) [id number] 06:07:00 Test Item Value Reference Range Interpretation Comments MAGNESIUM (BEAKER) (test code = 1.9 mg/dL 1.6-2.6 627) [id number] 05:38:00 Test Item Value Reference Range Interpretation Comments PARTIAL THROMBOPLASTIN TIME 36.6 seconds 22.5-36.0 H (BEAKER) (test code = 760) PROTHROMBIN [id number] 05:37:00 Test Item Value Reference Range Interpretation Comments PROTIME (BEAKER) (test code = 15.4 seconds 11.7-14.7 H 759) INR (BEAKER) (test code = 370) 1.2 <=5.9 RECOMMENDED COUMADIN/WARFARIN INR THERAPY RANGESSTANDARD DOSE: 2.0 - 3.0 Includes: PROPHYLAXIS for [...] WBC 0-0 (BEAKER) (test code = 413) [id number] 12:24:00 Test Item Value Reference Range Interpretation Comments MAGNESIUM (BEAKER) (test code = 2.3 mg/dL 1.6-2.6 627) BASIC METABOLIC [id number] 12:24:00 Test Item Value Reference Range Interpretation [...] PATIEN TS. RAD, CHEST, 1 VIEW, NON [id number] 10:13:00Reason for exam:->post opShould this be performed at the bedside?->YesFINAL REPORT Chest one view. Clinical history: post op Comparison: 02/16/2019 Dis cussion: A frontal chest is provided. Cardiomediastinal contours are unchanged. Right IJ line is in stable position. There is mild interstitial prominence. There is a layering left effusion, not significantly changed. Stable retrocardiac opacity. No pneumothorax. Signed: Radha Meléndezeport Verified Date /Time: 02/17/2019 10:13:18 Reading Location: [facility] Radiology Reading Room BASIC METABOLIC [id number] 04:05:00 Test Item Value Reference Range Interpretation [...] S NOT APPLICABLE FOR DIALYSIS PATIEN TS. [id number] 04:02:00 Test Item Value Reference Range Interpretation Comments MAGNESIUM (BEAKER) 1.8 mg/dL 1.6-2.6 Specimen slightly (test code = 627) hemolyzed [id number] 04:02:00 Test Item Value Reference Range Interpretation Comments PHOSPHORUS (BEAKER) 1.9 mg/dL 2.3-4.7 L Specimen slightly (test code = 604) hemolyzed [id number] 03:56:00 Test Item Value Reference Range Interpretation Comments PARTIAL THROMBOPLASTIN TIME 34.3 seconds 22.5-36.0 (BEAKER) (test code = 760) PROTHROMBIN [id number] 03:55:00 Test Item Value Reference Range Interpretation Comments PROTIME (BEAKER) (test code = 15.6 seconds 11.7-14.7 H 759) INR (BEAKER) (test code = 370) 1.2 <=5.9 RECOMMENDED COUMADIN/WARFARIN INR THERAPY RANGESSTANDARD DOSE: 2.0 - 3.0 Includes: PROPHYLAXIS for [...] WBC 0-0 (BEAKER) (test code = 413) [id number] 18:27:00 Test Item Value Reference Range Interpretation Comments POTASSIUM (BEAKER) (test code = 3.5 meq/L 3.5-5.1 379) Check Serum Phosphorus level 4 hours after IV phosphorus replacement or 8 hours after PO replacementcompleted.Check Serum Potassium level 2 hours after oral potassium replacement completed or 30 min after intravenous potassium replacement.[id number] 18:27:00 Test Item Value Reference Range Interpretation Comments MAGNESIUM (BEAKER) (test code = 1.6 mg/dL 1.6-2.6 627) Check Serum Phosphorus level 4 hours after IV phosphorus replacement or 8 hours after PO replacementcompleted.Check Serum Potassium level 2 hours after oral potassium replacement completed or 30 min after intravenous potassium replacement.[id number] 18:27:00 Test Item Value Reference Range Interpretation Comments PHOSPHORUS (BEAKER) (test code = 1.8 mg/dL 2.3-4.7 L 604) Check Serum Phosphorus level 4 hours after IV phosphorus replacement or 8 hours after PO replacementcompleted.Check Serum Potassium level 2 hours after oral potassium replacement completed or 30 min after intravenous potassium replacement.RAD, CHEST, 1 VIEW, NON [id number] 07:27:00Reason for exam:- >post opShould this be performed at the bedside?->YesFINAL REPORT Portable chest. CLINICAL HISTORY: post op. COMPARISON STUDY: Chest x-ray from yesterday. FINDINGS: The cardiac silhouette is enlarged. The pulmonary parenchyma demonstrate increased interstitial markings with atelectasis or consolidation in the left lung base, more pronounced than on previous with some blunting of the left costophrenic angle. There has been interval extubation. The remaining support lines and tubes are unchanged. No pneumothorax is seen. An aortic stent grafts remains. Degenerative changes are noted. IMPRESSION: Interval extubation. Slight worsening of opacity in the left thorax.. Signed: Zeus Ruiz MDReport Verified Date/Time: 02/16/2019 07:2 7:26 Reading Location: [facility] Radiology Reading Room [id number] 05:29:00 Test Item Value Reference Range Interpretation Comments PHOSPHORUS (BEAKER) (test code = 3.5 mg/dL 2.3-4.7 604) [id number] 05:29:00 Test Item Value Reference Range Interpretation Comments MAGNESIUM (BEAKER) (test code = 2.3 mg/dL 1.6-2.6 627) BASIC METABOLIC [id number] 05:29:00 Test Item Value Reference Range Interpretation [...] S NOT APPLICABLE FOR DIALYSIS PATIEN TS. [id number] 05:12:00 Test Item Value Reference Range Interpretation Comments PARTIAL THROMBOPLASTIN TIME 36.6 seconds 22.5-36.0 H (BEAKER) (test code = 760) PROTHROMBIN [id number] 05:11:00 Test Item Value Reference Range Interpretation Comments PROTIME (BEAKER) (test code = 15.5 seconds 11.7-14.7 H 759) INR (BEAKER) (test code = 370) 1.2 <=5.9 RECOMMENDED COUMADIN/WARFARIN INR THERAPY RANGESSTANDARD DOSE: 2.0 - 3.0 Includes: PROPHYLAXIS for [...] WBC 0-0 (BEAKER) (test code = 413) [id number] 21:44:00 Test Item Value Reference Range Interpretation Comments POTASSIUM (BEAKER) (test code = 3.9 meq/L 3.5-5.1 379) Check Serum Potassium level 2 hours after oral potassium replacement completed or 30 min after intravenous potassium replacement.[id number] 21:44:00 Test Item Value Reference Range Interpretation Comments MAGNESIUM (BEAKER) (test code = 1.8 mg/dL 1.6-2.6 627) Check Serum Potassium level 2 hours after oral potassium replacement completed or 30 min after intravenous potassium replacement.CALCIUM, [id number] 21:29:00 Test Item Value Reference Range Interpretation Comments CALCIUM IONIZED (BEAKER) (test 1.09 mmol/L 1.12-1.27 L code = 698) PH, BLOOD (BEAKER) (test code = 7.42 1810) Check serum Ionized Calcium level after 4 hours after IV Calcium replacement. [id number] 16:31:00 Test Item Value Reference Range Interpretation Comments ACTIVATED CLOTTING TIME 257 sec TEST ED AT [place] [address] ([facility]) (test code = [place] [address]) [address] [id number] 16:31:00 Test Item Value Reference Range Interpretation Comments ACTIVATED CLOTTING TIME 274 sec TEST ED AT [place] [address] ([facility]) (test code = [place] [address]) [address] [id number] 16:31:00 Test Item Value Reference Range Interpretation Comments ACTIVATED CLOTTING TIME 235 sec TEST ED AT [place] [address] ([facility]) (test code = [place] [address]) [address] BASIC METABOLIC [id number] 15:50:00 Test Item Value Reference Range Interpretation [...] PATIEN TS. RAD, CHEST, 1 VIEW, NON [id number] 15:49:00Reason for exam:->Post-opShould this be performed at the bedside?->YesFINAL REPORT Chest one view. Clinical history: Post-op Comparison: 02/14/2019 Discussion: A frontal chest is provided. ET is 1.7 cm above the bam. A right IJ line projects over the distal SVC. A stent graft has been placed in the thoracic aorta. Cardiac silhouette is grossly unchanged. Mild interstitial prominence is noted, particularly on the left, which may reflect edema. There is mild left basilar consolidation with a suspected small left effusion. No pneumothorax Signed: Radha Meléndezeport Verified Date/Time: 02/15/2019 15:49:49 Reading Location: [facility] C013W Consult Reading Room PHOSPHORUS 2019-02-15 15:43:00 Test Item Value Reference Range Interpretation Comments PHOSPHORUS (BEAKER) (test code = 3.1 mg/dL 2.3-4.7 604) [id number] 15:43:00 Test Item Value Reference Range Interpretation Comments MAGNESIUM (BEAKER) (test code = 1.4 mg/dL 1.6-2.6 L 627) RAD, CHEST, 1 VIEW, NON [id number] 15:34:00Reason for exam:->post opFINAL REPORT TECHNIQUE: Frontal chest radiograph dated 02/15/2019. CLINICAL HISTORY: Postop COMPARISON STUDY: Chest radiograph performed earlier the same day IMPRESSION: Life support tubes and lines are unchanged. Descending aortic endovascular graft is unchanged. No change in left-sided lung disease. No pleural effusion or pneumothorax. Cardiomediastinal silhouette is stable in ap pearance. No pulmonary edema. Bones are osteopenic. Signed: Aramis Draper MDReport Verified Date/Time: 02/15/2019 15:34:57 Reading Location: [facility] Radiology Reading Room [id number] 15:05:00 Test Item Value Reference Range Interpretation Comments PARTIAL THROMBOPLASTIN TIME 36.5 seconds 22.5-36.0 H (BEAKER) (test code = 760) PROTHROMBIN [id number] 15:04:00 Test Item Value Reference Range Interpretation Comments PROTIME (BEAKER) (test code = 18.3 seconds 11.7-14.7 H 759) INR (BEAKER) (test code = 370) 1.5 <=5.9 RECOMMENDED COUMADIN/WARFARIN INR THERAPY RANGESSTANDARD DOSE: 2.0 - 3.0 Includes: PROPHYLAXIS for venous thrombosis, systemic embolization; TREATMENT for venous thrombosis and/or pulmonary embolus.HIGH RISK: Target INR is 2.5-3.5 for patients with mechanical heart valves.CBC W/PLT COUNT & AUTO [id number] 14:58:00 Test Item Value Reference Range Interpretation [...] (BEAKER) (test code = 2801) BLOOD GAS, [id number] 14:53:00 Test Item Value Reference Range Interpretation [...] (test code = 1819) 60.0 % GLUCOSE-STAT [id number] 14:53:00 Test Item Value Reference Range Interpretation Comments GLUCOSE RANDOM (BEAKER) (test code 148 mg/dL 70-110 H = 652) HGB/HCT (H&H) - STAT [id number] 14:53:00 Test Item Value Reference Range Interpretation Comments HEMOGLOBIN (BEAKER) (test code = 10.8 g/dL 12.0-15.0 L 410) HEMATOCRIT (BEAKER) (test code = 32.0 % 36.0-45.0 L 411) CALCIUM, [id number] 14:53:00 Test Item Value Reference Range Interpretation Comments CALCIUM IONIZED (BEAKER) (test 1.05 mmol/L 1.12-1.27 L code = 698) PH, BLOOD (BEAKER) (test code = 7.34 1810) SODIUM NA-STAT [id number] 14:51:00 Test Item Value Reference Range Interpretation Comments SODIUM (BEAKER) (test code = 381) 136 meq/L 135-148 POTASSIUM-STAT [id number] 14:51:00 Test Item Value Reference Range Interpretation Comments POTASSIUM (BEAKER) (test code = 3.7 meq/L 3.6-5.5 379) BLOOD GAS, [id number] 10:49:00 Test Item Value Reference Range Interpretation [...] (test code = 1819) 100.0 % POTASSIUM-STAT [id number] 10:49:00 Test Item Value Reference Range Interpretation Comments POTASSIUM (BEAKER) (test code = 3.4 meq/L 3.6-5.5 L 379) HGB/HCT (H&H) - STAT [id number] 10:49:00 Test Item Value Reference Range Interpretation Comments HEMOGLOBIN (BEAKER) (test code = 10.3 g/dL 12.0-15.0 L 410) HEMATOCRIT (BEAKER) (test code = 30.0 % 36.0-45.0 L 411) CALCIUM, [id number] 10:48:00 Test Item Value Reference Range Interpretation Comments CALCIUM IONIZED (BEAKER) (test 1.12 mmol/L 1.12-1.27 code = 698) PH, BLOOD (BEAKER) (test code = 7.44 1810) GLUCOSE-STAT [id number] 10:47:00 Test Item Value Reference Range Interpretation Comments GLUCOSE RANDOM (BEAKER) (test code = 96 mg/dL 70-110 652) SODIUM NA-STAT [id number] 10:47:00 Test Item Value Reference Range Interpretation Comments SODIUM (BEAKER) (test code = 381) 137 meq/L 135-148 BASIC METABOLIC [id number] 05:03:00 Test Item Value Reference Range Interpretation [...] (BEAKER) (test code = 413) HEPATITIS B [id number] 19:05:00 Test Item Value Reference Range Interpretation Comments HEPATITIS B CORE TOTAL ANTIBODY Nonreactive Nonreactive (BEAKER) (test code = 497) HEPATITIS B SURFACE ANTIBODY < mIU/mL <8.0 (BEAKER) (test code = 647) HEPATITIS B SURFACE ANTIGEN (2) Nonreactive Nonreactive (BEAKER) (test code = 2585) HEPATITIS C [id number] 19:03:00 Test Item Value Reference Range Interpretation Comments HEPATITIS C ANTIBODY (BEAKER) Nonreactive Nonreactive (test code = 367) HIV-1 ANTIGEN WITH HIV-1/2 [id number] 19:03:00 Test Item Value Reference Range Interpretation Comments HIV-1 ANTIGEN WITH HIV 1\T\2 Nonreactive Nonreactive ANTIBODY (2) (BEAKER) (test code = 2586) URINALYSIS W/ [id number] 18:33:00 Test Item Value Reference Range Interpretation [...] 520) SOURCE(BEAKER) (test code = Urine, Voided 6715) [id number] 18:14:00 Test Item Value Reference Range Interpretation Comments LIPASE (BEAKER) (test code = 749) 202 U/L 8-78 H [id number] 18:14:00 Test Item Value Reference Range Interpretation Comments AMYLASE (BEAKER) (test code = 349) 48 U/L 25-125 HEPATIC FUNCTION [id number] 18:14:00 Test Item Value Reference Range Interpretation [...] U/L 125-220 H code = 635) PROTHROMBIN [id number] 17:51:00 Test Item Value Reference Range Interpretation Comments PROTIME (BEAKER) (test code = 14.1 seconds 11.7-14.7 759) INR (BEAKER) (test code = 370) 1.1 <=5.9 RECOMMENDED COUMADIN/WARFARIN INR THERAPY RANGESSTANDARD DOSE: 2.0 - 3.0 Includes: PROPHYLAXIS for venous thrombosis, systemic embolization; TREATMENT for venous thrombosis and/or pulmonary embolus.HIGH RISK: Target INR is 2.5-3.5 for patients with mechanical heart valves.RETICULOCYTE [id number] 17:44:00 Test Item Value Reference Range Interpretation Comments RETICULOCYTE COUNT PCT (BEAKER) (test 2.0 % 0.5-1.7 H code = 575) RAD, CHEST, 2 [id number] 17:43:00Reason for exam:->Pre-opShould this be performed at [...] MDReport Verified Date/Time: 02/14/2019 17:43:10 Reading Location: [facility] Diagnostic Imaging Reading Room - [facility] 1310.12 05:43 PMBASIC METABOLIC [id number] 04:50:00 Test Item Value Reference Range Interpretation [...] (BEAKER) (test code = 413) BASIC METABOLIC [id number] 06:16:00 Test Item Value Reference Range Interpretation [...] (BEAKER) (test code = 413) BASIC METABOLIC [id number] 08:33:00 Test Item Value Reference Range Interpretation [...] WBC 0-0 (BEAKER) (test code = 413) [id number] 07:12:00 Test Item Value Reference Range Interpretation Comments MAGNESIUM (BEAKER) (test code = 1.8 mg/dL 1.6-2.6 627) BASIC METABOLIC [id number] 07:12:00 Test Item Value Reference Range Interpretation [...] 413) CTA, CHEST, ABDOMEN - PELVIS, FOR [id number] 11:23:00Reason for exam:- >evaluate aortic dissectionAddendum BeginsREPORT STATUS:A ADDENDUM: Study reviewed by radiology. Agree with the nonvascular findings as described below. Ultrasound of the pelvis is recommended for further evaluation of the left adnexal cystic lesion. Signed: Devendra Garcia MDReport Verified Date/Time: 02/10/2019 11:23:48 Reading Location: [place] [address] Angio Body Reading RoomAddendum EndsFINAL REPORT PATIENTID: [id number] CT angiography of the thoracoabdominal aorta and pelvic arteries, 07 February 2019 INDICATION: This is a 73 year old female with with a diagnosis for aortic dissection presents for assessment. This study is performed in an attempt to avoid an invasive procedure. Per [facility], patient has known aortic dissection, type B distribution. TECHNIQUE: Spiral acquisition before and during intravenouscontrast administration using a Phu[employer] multidetector CT scanner. Images were obtained before and during the dynamic passage of intravenous contrast material. Multi- planar 3-D volume-rendering reconstruction was performed using an [...] artery and the FRANK arise from the false lumen of the dissection. Partial thrombosis of the false lumen is identified. Quantitative dimensions of the aort a are as follows: 3.1 cm at the sinuses of Valsalva (the sino-tubular junction is preserved); 3.6 x 3.3 cm at the proximal ascending thoracic aorta; 4.0 x 3.9 cm at the mid ascending aorta; 3.7 x 3.6 cm at the distal ascending aorta; 2.8 cm at the mid transverse arch; 2.8 cm at the proximal descendingaorta; 3.4 x 3.5 cm at the mid descending aorta; 3.5 x 3.5 cm distal descending thoracic aorta. In the abdomen, the aorta measures 2.9 x 3.0 cm at the supra-mesenteric level; 2.8 x 2.6 cm at the mesenteric segment; 2.2 cm at the renal segment,; and 1.8 cm at the aortic bifurcation. As described above,the true lumen near the aortic bifurcation, is [...] no obvious endobronchial lesion is seen, and swgd-xo-cslchzel left basal pleural effusion is identified with associated atelectatic changes. Some subsegmental atelectatic changes are seen. No pneumothorax is identified. No suspicious pulmonary nodule is noted. In the abdomen,the liver and spleen appears unremarkable. Some hypodensities are seen in the liver, too small to singh racterize. No abnormal enhancing structure is identified. Small [...] is seen; mild degenerative changes is noted. CONCLUSIONS: 1. No acute pathology is identified in the [...] patent with no obstructive lesion identified. However, the true lumen just above the aortic bifurcation is very small in size, at image 243. Quantitative dimension of the the thoracoabdominal aorta are as described above. 2. Normal coronary artery origins. No obvious coronary artery calci fication is identified. 3. No evidence of central pulmonary artery embolism. Weod-um-tuxolxpo left basal pleural effusion. 4. Other findings as described above. 5. An addendum will be dictated regarding the non-vascular findings by the Health Outreach Worker Radiologist. Signed: hSaggy Brown [facility] VerifiedDate/Time: 02/08/2019 07:24:23 Reading Location: [facility] P047 Cardiology MRI [id number] 04:02:00 Test Item Value Reference Range Interpretation Comments MAGNESIUM (BEAKER) (test code = 1.8 mg/dL 1.6-2.6 627) BASIC METABOLIC [id number] 04:02:00 Test Item Value Reference Range Interpretation [...] WBC 0-0 (BEAKER) (test code = 413) [id number] 11:17:00 Test Item Value Reference Range Interpretation Comments MAGNESIUM (BEAKER) (test code = 1.9 mg/dL 1.6-2.6 627) BASIC METABOLIC [id number] 11:17:00 Test Item Value Reference Range Interpretation [...] WBC 0-0 (BEAKER) (test code = 413) [id number] 06:02:00 Test Item Value Reference Range Interpretation Comments PHOSPHORUS (BEAKER) (test code = 3.3 mg/dL 2.3-4.7 604) [id number] 06:02:00 Test Item Value Reference Range Interpretation Comments MAGNESIUM (BEAKER) (test code = 2.0 mg/dL 1.6-2.6 627) BASIC METABOLIC [id number] 06:02:00 Test Item Value Reference Range Interpretation [...] PATIEN TS. CBC W/PLT COUNT & AUTO [id number] 04:46:00 Test Item Value Reference Range Interpretation [...] 0-1 PERCENT (BEAKER) (test code = 2801) [id number] 05:37:00 Test Item Value Reference Range Interpretation Comments MAGNESIUM (BEAKER) 2.2 mg/dL 1.6-2.6 Specimen slightly (test code = 627) hemolyzed [id number] 05:37:00 Test Item Value Reference Range Interpretation Comments PHOSPHORUS (BEAKER) 3.8 mg/dL 2.3-4.7 Specimen slightly (test code = 604) hemolyzed BASIC METABOLIC [id number] 05:37:00 Test Item Value Reference Range Interpretation [...] PATIEN TS. CBC W/PLT COUNT & AUTO [id number] 04:41:00 Test Item Value Reference Range Interpretation [...] = 2801) CBC W/PLT COUNT & AUTO [id number] 05:55:00 Test Item Value Reference Range Interpretation [...] 0-1 PERCENT (BEAKER) (test code = 2801) [id number] 05:41:00 Test Item Value Reference Range Interpretation Comments PHOSPHORUS (BEAKER) (test code = 3.5 mg/dL 2.3-4.7 604) [id number] 05:41:00 Test Item Value Reference Range Interpretation Comments MAGNESIUM (BEAKER) (test code = 1.8 mg/dL 1.6-2.6 627) BASIC METABOLIC [id number] 05:41:00 Test Item Value Reference Range Interpretation [...] PATIEN TS. RAD, CHEST, 1 VIEW, NON [id number] 00:42:00Reason for exam:->evaluate effusionShould this be performed at the bedside?->YesFINAL REPORT INDICATION: evaluate effusion COMPARISON: None TECHNIQUE: Single fr ontal view of the chest. FINDINGS: Lungs and pleura: Clear lungs. No effusion.Heart and mediastinum:Normal heart size. Unremarkable mediastinal contours.Osseous structures: No acute abnormality.Other:None. IMPRESSION: No acute intrathoracic abnormality. Signed: [place] Verified Date/ Time: 02/05/2019 00:42:32 Reading Location: [address] Neuro Reading Room C METABOLIC [id number] 21:52:00 Test Item Value Reference Range Interpretation [...] S NOT APPLICABLE FOR DIALYSIS PATIEN TS. [id number] 21:43:00 Test Item Value Reference Range Interpretation Comments PROTIME (BEAKER) (test code = 13.3 seconds 11.7-14.7 759) INR (BEAKER) (test code = 370) 1.0 <=5.9 PARTIAL THROMBOPLASTIN TIME < seconds 22.5-36.0 L (BEAKER) (test code = 760) RECOMMENDED COUMADIN/WARFARIN INR THERAPY RANGESSTANDARD DOSE: 2.0 - 3.0 Includes: PROPHYLAXIS for venous thrombosis, systemic embolization; TREATMENT for venous thrombosis and/or pulmonary embolus.HIGH RISK: Target INR is 2.5-3.5 for patients with mechanical heart valves.[id number] 21:39:00 Test Item Value Reference Range Interpretation Comments PHOSPHORUS (BEAKER) (test code = 3.2 mg/dL 2.3-4.7 604) [id number] 21:39:00 Test Item Value Reference Range Interpretation Comments MAGNESIUM (BEAKER) (test code = 2.5 mg/dL 1.6-2.6 627) PROTHROMBIN [id number] 21:37:00 Test Item Value Reference Range Interpretation Comments PROTIME (BEAKER) (test code = 13.3 seconds 11.7-14.7 759) INR (BEAKER) (test code = 370) 1.0 <=5.9 RECOMMENDED COUMADIN/WARFARIN INR THERAPY RANGESSTANDARD DOSE: 2.0 - 3.0 Includes: PROPHYLAXIS for venous thrombosis, systemic embolization; TREATMENT for venous thrombosis and/or pulmonary embolus.HIGH RISK: Target INR is 2.5-3.5 for patients with mechanical heart valves.CBC W/PLT COUNT & AUTO [id number] 21:23:00 Test Item Value Reference Range Interpretation [...]
[2022-06-15] MEDS ORDERED: cloNIDine HCL 0.1 MG TAB ONE (14:19)
--- NOTE | 2022-06-15 15:22 | ER ---
Nurse's Notes [facility] Name: Marlene Valderrama Age: 77 yrs Sex: Female : 1945 Arrival Date: 06/15/2022 Time: 12:43 Bed DIS1 Private MD: Jey Mora B Diagnosis: Essential (primary) hypertension Presentation: 06/15 13:31 Chief complaint: Patient states: "my blood pressure has been high and I got worried aa5 because this morning it was 179 (systolic)". Pt denies any symptoms. Pt denies headache, denies dizziness, reports PCP changed her BP medication a couple of weeks ago and is now taking Nebivolol 5 mg daily. Coronavirus screen: At this time, the client does not indicate any symptoms associated with coronavirus-19. Ebola Screen: No symptoms or risks identified at this time. Initial Sepsis Screen: Does the patient meet any 2 criteria? No. Patient's initial sepsis screen is negative. Does the patient have a suspected source of infection? No. Patient's initial sepsis screen is negative. Risk Assessment: Do you want to hurt yourself or someone else? Patient reports no desire to harm self or others. Onset of symptoms was May 2022. 13:31 Acuity: IGOR 3 aa5 13:31 Method Of Arrival: Ambulatory aa5 Historical: - Allergies: 13:33 No Known Allergies; aa5 - Home Meds: 13:33 nebivolol 5 mg oral tab once daily [Active]; rosuvastatin 5 mg oral tab once daily aa5 [Active]; citalopram 10 mg oral tab once daily [Active]; levothyroxine 112 mcg oral tab once daily [Active]; olmesartan 20 mg oral tab once daily [Active]; - PMHx: 13:33 HTN; Hypothyroidism; Brain Bleed; aa5 - PSHx: 13:33 partial thyroidectomy; Thoracic artery disection surgery with stent; Renal Artery stent;aa5 - Immunization history:: Adult Immunizations unknown. - Social history:: Smoking status: Patient denies any tobacco usage or history of. Screenin:00 Abuse screen: Denies threats or abuse. Denies injuries from another. Nutritional hb screening: No deficits noted. Tuberculosis screening: No symptoms or risk factors identified. Fall Risk None identified. Assessment: 15:00 General: Appears in no apparent distress. Behavior is calm, cooperative. Pain: Denies hb pain. Neuro: Level of Consciousness is awake, alert, obeys commands, Oriented to person, place, time, situation. 15:00 Cardiovascular: Patient's skin is warm and dry. Respiratory: Respiratory effort is hb even, unlabored, Respiratory pattern is regular, symmetrical. GI: No signs and/or symptoms were reported involving the gastrointestinal system. : No signs and/or symptoms were reported regarding the genitourinary system. EENT: No signs and/or symptoms were reported regarding the EENT system. Derm: Skin is pink, warm \\T\\ dry. Musculoskeletal: No signs and/or symptoms reported regarding the musculoskeletal system. Vital Signs: 13:31 BP 205 / 84; Pulse 55; Resp 16 S; Temp 97.9(TE); Pulse Ox 98% on R/A; Weight 70.31 kg aa5 (R); Height 5 ft. 3 in. (160.02 cm) (R); Pain 0/10; 15:27 BP 156 / 56; Pulse 56; Resp 16; hb 13:31 Body Mass Index 27.46 (70.31 kg, 160.02 cm) aa5 ED Course: 12:43 Patient arrived in ED. am2 12:43 Jey Mora MD is Private Physician. am2 13:30 Arm band placed on. EKG completed in triage. Results shown to MD. aa5 13:33 Triage completed. aa5 13:47 Radha Mejía MD is Attending Physician. sd2 15:00 Patient has correct armband on for positive identification. hb 15:21 Jey Mora MD is Referral Physician. sd2 15:29 No provider procedures requiring assistance completed. Patient did not have IV access hb during this emergency room visit. Administered Medications: 14:13 Drug: cloNIDine 0.1 mg Route: PO; hb Medication: 15:00 VIS not applicable for this client. hb Outcome: 15:22 Discharge ordered by . sd2 15:29 Discharged to home ambulatory. hb 15:29 Condition: stable 15:29 Discharge instructions given to patient, Instructed on discharge instructions, follow up and referral plans. medication usage, Demonstrated understanding of instructions, follow-up care, medications. 15:29 Patient left the ED. hb Signatures: Delia Anderson, RN RN aa5 Maria Elena Valderrama, RN RN hb Sheila Martinez am2 Radha Mejía MD MD sd2
--- NOTE | 2022-06-15 15:22 | EDPHYS ---
Physician Documentation [facility] Name: Marlene Valderrama Age: 77 yrs Sex: Female : 1945 Arrival Date: 06/15/2022 Time: 12:43 Bed DIS1 Private MD: Jey Mora B ED Physician Radha Mejía HPI: 06/15 14:05 This 77 yrs old Unknown Female presents to ER via Ambulatory with complaints of High sd2 Blood Pressure. 14:05 77-year-old female with a history of hypertension, hypothyroidism, brain bleed and sd2 aortic dissection presents with a chief complaint of high blood pressure. She reports that starting on the 13th of this month, she began having elevated blood pressure readings at home that have been around the 170s systolic. She reports that her blood pressure medication was changed on the first of the month to nebivolol 5 mg daily. It initially was controlling her blood pressure well with blood pressures 120s over 80s but then her blood pressure started to trend upwards again. She denies any and all associated symptoms with her elevated blood pressure including headache, blurred vision, chest pain or shortness of breath. She has absolutely no other complaints at this time.. Historical: - Allergies: 13:33 No Known Allergies; aa5 - Home Meds: 13:33 nebivolol 5 mg oral tab once daily [Active]; rosuvastatin 5 mg oral tab once daily aa5 [Active]; citalopram 10 mg oral tab once daily [Active]; levothyroxine 112 mcg oral tab once daily [Active]; olmesartan 20 mg oral tab once daily [Active]; - PMHx: 13:33 HTN; Hypothyroidism; Brain Bleed; aa5 - PSHx: 13:33 partial thyroidectomy; Thoracic artery disection surgery with stent; Renal Artery stent;aa5 - Immunization history:: Adult Immunizations unknown. - Social history:: Smoking status: Patient denies any tobacco usage or history of. ROS: 14:05 Constitutional: Negative for fever, chills, and weight loss, Eyes: Negative for injury, sd2 pain, redness, and discharge, Cardiovascular: Negative for chest pain, palpitations, and edema, Respiratory: Negative for shortness of breath, cough, wheezing. Abdomen/GI: Negative for abdominal pain, nausea, vomiting, diarrhea. MS/Extremity: Negative for injury and deformity, Skin: Negative for injury, rash, and discoloration, Neuro: Negative for headache, numbness and tingling. Exam: 14:05 Constitutional: This is a well developed, well nourished patient who is awake, alert, sd2 and in no acute distress. Head/Face: Normocephalic, atraumatic. Chest/axilla: Normal chest wall appearance and motion. Nontender with no deformity. Cardiovascular: Regular rate and rhythm with a normal S1 and S2. No gallops, murmurs, or rubs. 2+ distal pulses. Respiratory: Lungs have equal breath sounds bilaterally, clear to auscultation and percussion. No rales, rhonchi or wheezes noted. No increased work of breathing, no retractions or nasal flaring. Abdomen/GI: Soft, non-tender, with normal bowel sounds. No guarding or rebound. No evidence of tenderness throughout. Skin: Warm, dry with normal turgor. Normal color with no rashes, no lesions, and no evidence of cellulitis. MS/ Extremity: Pulses equal, no cyanosis. Neurovascular intact. Full, normal range of motion. Ambulatory without difficulty. Psych: Awake, alert, with orientation to person, place and time. Behavior, mood, and affect are within normal limits. 14:05 ECG was reviewed by the Attending Physician. Sinus bradycardia, rate 57, no STEMI sd2 criteria or ST-T wave changes Vital Signs: 13:31 BP 205 / 84; Pulse 55; Resp 16 S; Temp 97.9(TE); Pulse Ox 98% on R/A; Weight 70.31 kg aa5 (R); Height 5 ft. 3 in. (160.02 cm) (R); Pain 0/10; 15:27 BP 156 / 56; Pulse 56; Resp 16; hb 13:31 Body Mass Index 27.46 (70.31 kg, 160.02 cm) aa5 MDM: 14:05 Differential diagnosis: HTN, medication issue, end organ damage, doubt ICH, doubt sd2 dissection among others. Data reviewed: vital signs, nurses notes. 14:09 Patient medically screened. sd2 15:20 Counseling: I had a detailed discussion with the patient and/or guardian regarding: the sd2 historical points, exam findings, and any diagnostic results supporting the discharge/admit diagnosis, the presence of at least one elevated blood pressure reading (>120/80) during this emergency department visit, the need for outpatient follow up, to return to the emergency department if symptoms worsen or persist or if there are any questions or concerns that arise at home. Medical screen evaluation completed. [facility] emergency medical condition absent. ED course: Pt with asymptomatic hypertension. Due to significant elevation and patient's history and risk factors of ICH and dissection in the past, she was treated with clonidine with significant improvement of her blood pressure to 156/67. Pt remains asymptomatic and feels well. She will follow up with her PCP tomorrow to discuss her blood pressure medication and continue to monitor her blood pressure regularly at home. She verbalizes understanding of discharge plan and strict return precautions at this time.. Administered Medications: 14:13 Drug: cloNIDine 0.1 mg Route: PO; hb Disposition Summary: 06/15/22 15:22 Discharge Ordered Location: Home sd2 Problem: an acute exacerbation sd2 Symptoms: have improved sd2 Condition: Stable sd2 Diagnosis - Essential (primary) hypertension sd2 Followup: sd2 - With: Jey Mora MD - When: Tomorrow - Reason: Recheck today's complaints, Continuance of care, Re-evaluation by your physician Followup: sd2 - With: Emergency Department - When: As needed - Reason: Discharge Instructions: - Discharge Summary Sheet sd2 - Hypertension, Adult sd2 - Managing Your Hypertension sd2 Forms: - Medication Reconciliation Form sd2 - Thank You Letter sd2 - Antibiotic Education sd2 - Prescription Opioid Use sd2 Signatures: Delia Anderson RN RN [facility] Maria Elena Valderrama RN RN Radha Mejía MD MD sd2
[2022-06-15 15:36] VITALS: TEMP 97.9; O2SAT 98
[2022-06-15 15:51] VITALS: BP 156/56
--- NOTE | 2022-06-16 08:08 | EKG ---
Test Date: 2022-06-15 Test Time: 13:26:08 Turret Lathe Tender: MARY ANN MEASUREMENT RESULTS: Intervals: Rate: 57 AR: 150 QRSD: 74 QT: 450 QTc: 438 [place]: P: 16 AR: 150 QRS: 17 T: 48 INTERPRETIVE STATEMENTS: Sinus bradycardia Otherwise normal ECG Compared to ECG 04/12/2022 02:24:58 Sinus rhythm no longer present Electronically Signed On 06-16-22 08:06:24 CDT by Jose Raza
== END 2022-06-15 15:29 | disposition home or self-care (01) ==
LOC: ER 12:39
DX: I10 Essential (primary) hypertension (principal); E03.9 Hypothyroidism, unspecified
CPT/HCPCS: 93005; 99283

== ENCOUNTER 2025-01-13 13:57 | Emergency (ER) | payer OTHER ==
[2025-01-13 15:25] LABS: Albumin 3.1 g/dL (3.4-5.0); Albumin/Globulin Ratio 0.9 (1.1-1.8); Bilirubin Total 0.6 mg/dL (0.2-1.0); Globulin 3.5 g/dL (2.3-3.5); Protein, Total 6.6 g/dL (6.4-8.2); Troponin High Sensitivity 39.7 pg/mL (<58.9)
--- NOTE | 2025-01-13 15:28 | RAD REPORT ---
EXAM: CTA of the chest, abdomen and pelvis HISTORY: Chest pain and back pain ABD PAIN COMPARISON: 09/19/2020, 04/13/2024 TECHNIQUE: Multiple contiguous axial images were obtained a CTA of the chest and abdomen with contras t per aortic dissection protocol. This involves 3D reconstructions, MIPs, volume rendered images and/or shaded surface rendering. One or more of the following dose reduction techniques were used: Au tomated exposure control, adjustment of the mA and/or kV according to patient size, and/or iterative reconstruction. Unless otherwise specified, incidental findings do not require dedicated im aging follow-up. Sagittal and coronal 3-D MIP reformats were performed. FINDINGS: PULMONARY ARTERIES: Normal in caliber without filling defects to suggest pulmonary emboli. ASCENDING THORACIC AORTA: Aneurysmal dilatation is present measuring up to 4.7 cm, unchanged since c omparative studies. DESCENDING THORACIC AORTA: Stent is in place, stable. ABDOMINAL AORTA: Chronic dissection is present containing at the level of the renal arteries, with lo ng segment left renal artery stent is in place, unchanged. No acute finding related to this. The dissection extends into the left common iliac artery, also unchanged. CELIAC TRUNK: Patent. SMA: Patent FRANK: Patent RENAL ARTERIES: Left-sided long segment renal artery stent is patent. Right renal artery is patent. MEDIASTINUM: No hilar or mediastinal lymphadenopathy. LUNGS: No focal infiltrates or masses. PLEURAL SPACE: No pleural effusion or pneumothorax. LIVER: Mild fatty infiltration with 9 mm low-density lesion in the right hepatic lobe.. Cholelithiasi s with mild thickening of the gallbladder wall. SPLEEN: Unremarkable. PANCREAS: Unremarkable. KIDNEYS: Unremarkable. ADRENALS: Unremarkable. BOWEL: Prominent diverticulosis coli is present without diverticulitis.. RETROPERITONEUM: No lymphadenopathy. BONES: Unremarkable IMPRESSION: Aneurysm of the ascending aorta again seen similar to comparison study. No acute process related to t his. 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 Cholelithiasis with mild thickening of the gallbladder wall. Ultrasound correlation may be considered . Prominent diverticulosis coli without diverticulitis.
[2025-01-13 15:51] LABS: Absolute Basophils 0.2 K/uL (0-0.5); Absolute Lymphocytes (CBC) 33.1 K/uL (0.7-4.9); Absolute Monocytes 0.3 K/uL (0.1-1.3); Absolute Neutrophil 4.7 K/uL (1.8-8.0); Basophils % 0.4 % (0-1.3); Eosinophils % 0.1 % (0-4.4); Hematocrit 28.8 % (36.0-45.0); Hemoglobin 9.3 g/dL (12.0-15.0); Lymphocytes % 86.3 % (15.3-44.8); MCH 28.3 pg (27.0-35.0); MCHC 32.3 g/dL (32.0-36.0); MCV 87.6 fL (80-100); MPV 9.3 fL (7.6-11.3); Monocytes % 0.8 % (3.3-12.3); Neutrophils % 12.4 % (41.7-73.7); Nucleated RBC Absolute Count 0.2 (0-0); Nucleated Red Blood Cells % 0.6 % (0-0); Platelets 222 thou/uL (152-406); RBC Red Blood Cell Count 3.29 M/uL (3.86-4.86); Red Cell Distribution Width 16.6 % (12.1-15.2)
[2025-01-13 16:15] LABS: Differential Total Cells Count 100; Lymphocytes 89 % (15-42); Monocytes 4 % (0-10); Segmented Neutrophils 7 % (40-80)
[2025-01-13 16:16] LABS: Blood Morphology Comment NOT SEEN (NOT SEEN); Platelet Estimate ADEQ; Platelets, Giant PRESENT
--- NOTE | 2025-01-13 16:23 | RAD REPORT ---
EXAM: Right upper quadrant ultrasound. CLINICAL HISTORY: ABD PAIN COMPARISON: Recent CT study FINDINGS: Gallbladder: There is gallbladder distention seen. Tiny calculi noted inferiorly. Questionable edema in the gallbladder wall. Bile ducts: No intrahepatic or extrahepatic biliary dilatation. Common bile duct measures 4 mm. Limited imaging of the liver shows no concerning finding. IMPRESSION: Tiny calculi suspected in the dependent portion of the gallbladder with gallbladder distention and mi ld edematous wall could indicate cholecystitis in the correct clinical setting. HIDA scan could be useful for further evaluation.
--- NOTE | 2025-01-13 18:37 | RAD REPORT ---
EXAMINATION: MR CHOLANGIOGRAM CLINICAL INDICATION: Female, 79 years old. cholelithiasis TECHNIQUE: Multiplanar, multisequence MR imaging of the abdomen without intravenous contrast, and wit h specific attention to the biliary system. Unless otherwise specified, incidental findings do not require dedicated imaging follow-up. 3D MIP reconstruction performed. COMPARISON: No prior exam. FINDINGS: GALLBLADDER: Tiny calculi suspected gallbladder neck region. Gallbladder mildly distended. No signifi cant surrounding fluid. BILE DUCTS: No biliary ductal dilatation. Common duct is normal caliber. No common duct stone. LIVER: Normal in size, contour, and signal without evidence of fatty infiltration or iron deposition. No worrisome focal lesion. Small benign cyst is suspected right lobe. PANCREAS: Normal signal. No mass, ductal dilation, or annetta-pancreatic fluid. LYMPH NODES: No lymphadenopathy. ADDITIONAL FINDINGS: Chronic dissection abdominal aorta. IMPRESSION: Tiny gallstones noted within gallbladder. No common duct stone or dilatation of the common duct seen.
--- NOTE | 2025-01-13 18:43 | EDPHYS ---
Physician Documentation [facility] Name: Marlene Valderrama Age: 79 yrs Sex: Female : 1945 Arrival Date: 01/13/2025 Time: 13:57 Bed 20 Private MD: ED Physician Rhonda Rodriguez HPI: 01/13 14:15 This 79 yrs old Female presents to ER via EMS with complaints of abdominal pain. kb 14:15 Pt is an 79 year old female with a history of leukemia, hypertension, traumatic ICH, kb hypothyroidism, high cholesterol who presents for upper abdominal pain that started at 1300 and resolved after about 20 minutes. States she had a dissection in the past so she got concerned. Denies n/v/d. . Historical: - Allergies: 14:37 No Known Allergies; iw - PMHx: 14:01 Brain bleed; HTN; Hypothyroidism; iw - PSHx: 14:01 Renal Artery stent; partial thyroidectomy; Thoracic artery disection surgery with stent;iw - Immunization history:: Adult Immunizations unknown. - Infectious Disease History:: Denies. - Social history:: Smoking status: Patient denies any tobacco usage or history of. ROS: 14:21 Constitutional: As per HPI kb Exam: 14:21 Constitutional: This is a well developed, well nourished patient who is awake, alert, kb and in no acute distress. Head/Face: Normocephalic, atraumatic. ENT: Moist Mucous membranes Cardiovascular: Regular rate Respiratory: Respirations even and unlabored. No increased work of breathing. Talking in full sentences Abdomen/GI: Soft, non-tender. No distention Skin: Warm, dry with normal turgor. Normal color. MS/ Extremity: Pulses equal, no cyanosis. Neurovascular intact. Full, normal range of motion. Neuro: Awake and alert, GCS 15, oriented to person, place, time, and situation. Vital Signs: 14:58 BP 124 / 83; Pulse 62; Resp 16; Temp 99.2; Pulse Ox 100% on R/A; iw 17:49 BP 164 / 79; Pulse 61; Resp 18; Pulse Ox 100% ; db 18:30 BP 134 / 82; Pulse 62; Resp 18; Pulse Ox 100% on R/A; db MDM: 14:07 Medical Screening Exam initiated kb 14:21 Data reviewed: vital signs, nurses notes. kb 18:40 Differential diagnosis: cholecystitis, Cholelithiasis, gastritis, non-specific abd kb pain, pancreatitis. Consideration of Admission/Observation Escalation of care including admission/observation considered. admission vs transfer considered. Pt prefers to go home. After discussing with Dr Nava, MRCP competed and negative for stone in duct will send home with oral antibiotics. Pt will follow up with Dr Nava on . Management of patient was discussed with the following: Furniture Removalist: Dr Nava consulted. Recommended MRCP. May send home with PO antibiotics and follow up outpatient if negative. . Care significantly affected by the following chronic conditions: leukemia. Counseling: I had a detailed discussion with the patient and/or guardian regarding the historical points, exam findings, and any diagnostic results supporting the discharge/admit diagnosis, lab results, radiology results, the need for outpatient follow up, a general surgeon, to return to the emergency department if symptoms worsen or persist or if there are any questions or concerns that arise at home. ED course: Pt states her WBC was 40,000 most recently. States it has come down from 130,000 so her results today have improved.. 01/13 14:11 Order name: CBC with Diff; Complete Time: 16:16 kb 01/13 14:19 Order name: Troponin High Sensitivity; Complete Time: 15:31 kb 01/13 15:09 Order name: Comprehensive Metabolic Panel; Complete Time: 15:31 EDMS 01/13 15:09 Order name: Lipase; Complete Time: 15:31 EDMS 01/13 15:54 Order name: Manual Differential; Complete Time: 16:16 EDSD 01/13 16:26 Order name: CREATININE WHOLE BLOOD; Complete Time: 16:31 EDMS 01/13 14:19 Order name: CT Aorta for Dissection; Complete Time: 15:29 kb 01/13 15:33 Order name: Abdomen Limited US; Complete Time: 16:26 kb 01/13 17:37 Order name: Cholangiogram; Complete Time: 18:40 EDMS 01/13 14:11 Order name: IV Saline Lock; Complete Time: 15:19 kb 01/13 14:11 Order name: Labs collected and sent kb 01/13 14:19 Order name: EKG - Nurse/Tech; Complete Time: 19:07 kb 01/13 15:10 Order name: Misc. Order: recollect lavender; Complete Time: 17:09 hb Administered Medications: 18:45 Drug: Amoxicillin-Clavulanate PO 875 mg PO once Route: PO; db 19:07 Follow up: Response: No adverse reaction db Disposition Summary: 01/13/25 18:43 Discharge Ordered Condition: Stable kb Diagnosis - Other cholelithiasis without obstruction kb Followup: kb - With: Emergency Department - When: As needed - Reason: Worsening of condition Followup: kb - With: Private Physician - When: 2 - 3 days - Reason: Recheck today's complaints, Continuance of care, Re-evaluation by your physician Followup: kb - With: Otf Nava MD - When: 2 - 3 days - Reason: Recheck today's complaints Discharge Instructions: - Discharge Summary Sheet kb - Cholelithiasis, [id number] kb - Cholecystitis, [id number] kb Forms: - Medication Reconciliation Form kb - Antibiotic Education kb - Prescription Opioid Use kb - Patient Portal Instructions kb - Leadership Thank You Letter kb Prescriptions: - Augmentin 875-125 mg Oral Tablet - take 1 tablet ORAL route every 12 hours for 10 days; 20 tablet; Refills: 0, kb Product Selection Permitted Signatures: Dispatcher [employer] EDMS Edwina Richardson, FUR STORAGE CLERK-C FUR STORAGE CLERK-Zacharyb Michelle Lei, RN RN Maria Elena Valderrama, MALINDA RN Alison Ashley, MALINDA RN db Corrections: (The following items were deleted from the chart) 14:20 14:20 Abdomen Pelvis W Con+CT.RAD.BRZ ordered. EDMS EDMS 14:20 14:20 Troponin High Sensitivity+C.LAB.BRZ ordered. EDMS EDMS 14:20 14:20 Angio Aorta For Dissection+CT.RAD.BRZ ordered. EDMS EDMS 15:06 14:11 Abdomen Pelvis W Con+CT.RAD.BRZ ordered. EDMS EDMS 15:09 14:11 COMPREHENSIVE METABOLIC PANEL+C.LAB.BRZ ordered. EDMS EDMS 15:09 14:11 LIPASE+C.LAB.BRZ ordered. EDMS EDMS 18:43 18:43 Upper abdominal pain, unspecified kb kb
--- NOTE | 2025-01-13 18:43 | ER ---
Nurse's Notes [facility] Ayla Name: Marlene Valderrama Age: 79 yrs Sex: Female : 1945 Arrival Date: 01/13/2025 Time: 13:57 Bed 20 Private MD: Diagnosis: Other cholelithiasis without obstruction Presentation: 01/13 14:00 Chief complaint: EMS states: at 1 pm was having a BM and severe abd cramping, felt iw better after belching , still having some mild cramping. Coronavirus screen: At this time, the client does not indicate any symptoms associated with coronavirus-19. Ebola Screen: No symptoms or risks identified at this time. Initial Sepsis Screen: Does the patient meet any 2 criteria? No. Patient's initial sepsis screen is negative. Does the patient have a suspected source of infection? No. Patient's initial sepsis screen is negative. Risk Assessment: Do you want to hurt yourself or someone else? Patient reports no desire to harm self or others. Onset of symptoms was January 13, 2025. 14:00 Method Of Arrival: EMS: [facility] iw 14:00 Acuity: IGOR 3 iw Historical: - Allergies: 14:37 No Known Allergies; iw - PMHx: 14:01 Brain bleed; HTN; Hypothyroidism; iw - PSHx: 14:01 Renal Artery stent; partial thyroidectomy; Thoracic artery disection surgery with stent;iw - Immunization history:: Adult Immunizations unknown. - Infectious Disease History:: Denies. - Social history:: Smoking status: Patient denies any tobacco usage or history of. Screenin:08 [facility] ED Fall Risk Assessment (Adult) History of falling in the last 3 months, db including since admission No falls in past 3 months (0 pts) Confusion or Disorientation No (0 pts) Intoxicated or Sedated No (0 pts) Impaired Gait No (0 pts) Mobility Assist Device Used No (0 pt) Altered Elimination No (0 pt) Score/Fall Risk Level 0 - 2 = Low Risk Oriented to surroundings, Maintained a safe environment. Abuse screen: Denies threats or abuse. Denies injuries from another. Nutritional screening: No deficits noted. Tuberculosis screening: No symptoms or risk factors identified. Assessment: 17:45 Reassessment: Patient appears in no apparent distress at this time. Patient and/or db family updated on plan of care and expected duration. Pain level reassessed. Patient is alert, oriented x 3, equal unlabored respirations, skin warm/dry/pink. General: Appears in no apparent distress. comfortable, Behavior is calm, cooperative. Pain: Complains of pain in abdomen. Neuro: Level of Consciousness is awake, alert, obeys commands, Oriented to person, place, time, situation. Respiratory: Airway is patent Respiratory effort is even, unlabored, Respiratory pattern is regular, symmetrical. GI: Reports lower abdominal pain. 19:09 Reassessment: Patient appears in no apparent distress at this time. Patient and/or db family updated on plan of care and expected duration. Pain level reassessed. Patient is alert, oriented x 3, equal unlabored respirations, skin warm/dry/pink. Patient states feeling better. Patient states symptoms have improved. Vital Signs: 14:58 BP 124 / 83; Pulse 62; Resp 16; Temp 99.2; Pulse Ox 100% on R/A; iw 17:49 BP 164 / 79; Pulse 61; Resp 18; Pulse Ox 100% ; db 18:30 BP 134 / 82; Pulse 62; Resp 18; Pulse Ox 100% on R/A; db ED Course: 14:00 Patient arrived in ED. iw 14:01 Triage completed. iw 14:07 [facility] kb 14:07 Rhonda Rodriguez MD is Attending Physician. kb 14:13 Radiology exam delayed due to lab results not completed at this time. (BUN/Creatinine) jc4 IV insertion attempt and/or patient not having appropriate IV at this time. 14:58 Inserted saline lock: 22 gauge in right wrist, using aseptic technique. Blood iw collected. by [facility]. 15:12 CT Aorta for Dissection In Process Unspecified. EDMS 15:55 Abdomen Limited US In Process Unspecified. EDMS 17:50 Patient moved to MRI via wheelchair. db 17:57 Alison Ashley, MALINDA is Primary Nurse. db 18:28 Cholangiogram In Process Unspecified. EDMS 18:43 Otf Nava MD is Referral Physician. kb 18:45 Arm band placed on Patient placed in an exam room. db 19:08 No provider procedures requiring assistance completed. IV discontinued, intact, db bleeding controlled, No redness/swelling at site. 19:08 Patient has correct armband on for positive identification. Bed in low position. Call db light in reach. Side rails up X 1. Provided Education on: DISCHARGE AND FOLLOWUP. Pulse ox on. NIBP on. Pillow given. Administered Medications: 18:45 Drug: Amoxicillin-Clavulanate PO 875 mg PO once Route: PO; db 19:07 Follow up: Response: No adverse reaction db Medication: 19:08 VIS not applicable for this client. db Outcome: 18:43 Discharge ordered by . sweta 19:08 Discharged to home ambulatory, db 19:08 Condition: stable 19:08 Discharge instructions given to patient, Instructed on discharge instructions, follow up and referral plans. Prescriptions given X 1, 19:09 Patient left the ED. db Signatures: Dispatcher [employer] EDMS Edwina Richardson, SUSAN BEACH-Michelle Morales, RN MALINAD iw Alison Ashley RN RN Cuong Rosario jc4
[2025-01-13] MEDS ORDERED: AMOX/K CLAV 875 MG TAB ONE (19:01)
[2025-01-13 19:54] VITALS: TEMP 99.2; O2SAT 100
[2025-01-13 19:56] VITALS: BP 134/82
== END 2025-01-13 19:09 | disposition home or self-care (01) ==
LOC: ER 13:57
DX: K80.80 Other cholelithiasis without obstruction (principal)
CPT/HCPCS: 85025; 36415; 82565; 84484; 83690; 80053; 71275; 74175; 74181; 76705; 99284; Q9967

== ENCOUNTER 2025-07-26 19:09 | Emergency (ER) | payer OTHER ==
[2025-07-26 19:56] LABS: Absolute Lymphocytes (CBC) 13.5 K/uL (0.7-4.9); Hematocrit 32.2 % (36.0-45.0); Hemoglobin 10.8 g/dL (12.0-15.0); MCH 29.1 pg (27.0-35.0); MCHC 33.5 g/dL (32.0-36.0); MCV 87.1 fL (80-100); MPV 9.6 fL (7.6-11.3); Nucleated RBC Absolute Count 0.0 (0-0); Nucleated Red Blood Cells % 0.1 % (0-0); RBC Red Blood Cell Count 3.69 M/uL (3.86-4.86); White Blood Count 17.30 thou/uL (4.3-10.9)
[2025-07-26 20:02] LABS: PT Prothrombin Time 12.4 SECONDS (10-13.0); Protime INR 1.1
[2025-07-26 20:22] LABS: ALT/SGPT 19 U/L (13-56); AST/SGOT 24 U/L (15-37); Albumin 3.4 g/dL (3.4-5.0); Albumin/Globulin Ratio 1.0 (1.1-1.8); Alkaline Phosphatase 90 U/L (45-117); Anion Gap 9.4 mEq/L (5.0-15.0); BUN Blood Urea Nitrogen 19 mg/dL (7-18); Globulin 3.3 g/dL (2.3-3.5); Glucose Level 118 mg/dL (74-106); Potassium 3.4 mEq/L (3.5-5.1); Troponin High Sensitivity 44.8 pg/mL (<58.9)
[2025-07-26 20:24] LABS: Bilirubin Indirect, Calculated 0.1 mg/dL (0.2-0.8)
--- NOTE | 2025-07-26 20:48 | RAD REPORT ---
EXAMINATION: ONE VIEW CHEST XR CLINICAL INDICATION: Female, 80 years old.,TRAUMA TECHNIQUE: Frontal chest projection is submitted. Examination is limited by patient positioning and t echnique. COMPARISON: No prior exam. FINDINGS: The lungs are well inflated and clear. No pneumothorax or sizable effusion. The heart is normal in s ize. Tortuosity of the thoracic aorta with endograft throughout the arch to distal descending thoracic aorta. IMPRESSION: No acute intrathoracic abnormalities.
--- NOTE | 2025-07-26 21:10 | ER ---
Nurse's Notes [facility] Name: Marlene Valderrama Age: 80 yrs Sex: Female : 1945 Arrival Date: 07/26/2025 Time: 19:08 Bed 4 Private MD: Diagnosis: Traumatic subdural hemorrhage with loss of consciousness of unspecified duration Presentation: 07/26 19:21 Chief complaint: Patient states: Per EMS, pt from home and had a witnessed phone by 3 neighbors. Pt states she does not remember fall. pt has abrasion on left forehead and left elbow. Pt a/o x4. Pt states she is not on thinners. Care prior to arrival: None. Mechanism of Injury: Fall Pt was outside and fell on concrete. Trauma event details: Injury occurred: at home. Injury occurred: July 26, 2025. 19:21 Method Of Arrival: EMS: [facility] 19:21 Acuity: IGOR 2 [facility] 19:29 Coronavirus screen: At this time, the client does not indicate any symptoms associated [facility] with coronavirus-19. Ebola Screen: No symptoms or risks identified at this time. Initial Sepsis Screen: Does the patient meet any 2 criteria? No. Patient's initial sepsis screen is negative. Does the patient have a suspected source of infection? No. Patient's initial sepsis screen is negative. Risk Assessment: Do you want to hurt yourself or someone else? Patient reports no desire to harm self or others. Onset of symptoms was July 26, 2025. Triage Assessment: 19:27 Pain: Complains of pain in forehead Pain currently is 8 out of 10 on a pain scale. mf3 EENT: No deficits noted. Neuro: Level of Consciousness is awake, alert, obeys commands, Oriented to person, place, time, situation, Appropriate for age. Cardiovascular: Heart tones S1 S2 Capillary refill < 3 seconds. Respiratory: Airway is patent Trachea midline Respiratory effort is even, unlabored, Respiratory pattern is regular. GI: No signs and/or symptoms were reported involving the gastrointestinal system. : No signs and/or symptoms were reported regarding the genitourinary system. Derm: Skin is intact, is healthy with good turgor, Skin is dry, Skin is pink, warm \T\ dry. normal. Musculoskeletal: Capillary refill < 3 seconds. Injury Description: Abrasion sustained to forehead. Historical: - Allergies: 19:30 No Known Allergies; mf3 - PMHx: 19:30 HTN; mf3 - Immunization history: Last tetanus immunization: - up to date. - Infectious Disease History:: Denies. - Social history:: Smoking status: Patient denies any tobacco usage or history of. Screenin:21 Abuse screen: Denies threats or abuse. Denies injuries from another. Tuberculosis mf3 screening: No symptoms or risk factors identified. 19:31 [facility] ED Fall Risk Assessment (Adult) History of falling in the last 3 months, mf3 including since admission Yes- single mechanical fall (1 pt) Confusion or Disorientation No (0 pts) Intoxicated or Sedated No (0 pts) Impaired Gait No (0 pts) Mobility Assist Device Used No (0 pt) Altered Elimination No (0 pt) Score/Fall Risk Level 0 - 2 = Low Risk. Nutritional screening: No deficits noted. Primary Survey: 19:21 NO uncontrolled hemorrhage observed. A: The client is awake and alert. The airway is mf3 patent. A: Airway: patent. Breathing/Chest: Spontaneous respiratory effort, equal unlabored respirations, breath sounds clear bilaterally, regular pattern, symmetrical chest rise and fall. Respiratory effort: spontaneous, Breath sounds: clear, bilaterally. Circulation: No external hemorrhage present. Regular and strong central pulse, skin warm/dry/normal color. Pulses: palpable right radial artery and left radial artery. Cardiac rhythm: sinus rhythm. Disability Client is alert. Exposure/Environment: All clothing and personal items were removed. Reassessment Alertness and Airway: Awake and alert. The airway is patent. Airway Patent Breathing: Spontaneous respiratory effort, equal unlabored respirations, breath sounds clear bilaterally, regular pattern with symmetrical chest rise and fall. Respiratory effort Spontaneous Circulation: No external hemorrhage noted. Regular and strong central pulse, skin warm/dry/normal color. Heart rhythm Sinus rhythm Heart tones Present Disability: Pupils Pupils are equal, round, reactive to light and accomodation. Alert. Secondary Survey: 19:21 HEENT: Head Other abrasion on forehead. Gastrointestinal: No deficits noted. : No mf3 deficits noted. Musculoskeletal: Circulation, motion, and sensation intact. Capillary refill < 3 seconds. Assessment: 19:21 General: Appears in no apparent distress. comfortable, Behavior is calm, cooperative, mf3 appropriate for age. 21:35 Reassessment: No changes from previously documented assessment. Patient and/or family mf3 updated on plan of care and expected duration. Pain level reassessed. Patient is alert, oriented x 3, equal unlabored respirations, skin warm/dry/pink. Pt brother was called and updated about pt transfer. Pt a/ox4 and educated on transfer. Report called!. Life flight on the way! Vitals wdl Patient denies pain at this time. Vital Signs: 19:21 BP 174 / 65; Pulse 65; Resp 18; Temp 97.4; Pulse Ox 100% on R/A; Weight 66.22 kg; mf3 Height 5 ft. 4 in. ; Pain 8/10; 20:00 BP 164 / 66; Pulse 70; Resp 17; Pulse Ox 95% on R/A; mf3 21:00 BP 169 / 72; Pulse 68; Resp 18; Pulse Ox 100% on R/A; mf3 21:30 BP 146 / 67; Pulse 70; Resp 18; Temp 97.5(O); Pulse Ox 100% on R/A; Pain 0/10; mf3 19:21 Body Mass Index 25.06 (66.22 kg, 162.56 cm) mf3 19:21 Pain Scale: Adult mf3 21:30 Pain Scale: Adult mf3 Newcomb Coma Score: 19:21 Eye Response: spontaneous(4). Motor Response: obeys commands(6). Verbal Response: mf3 oriented(5). Total: 15. Trauma Score (Adult): 19:21 Eye Response: spontaneous(1); Verbal Response: oriented(1); Motor Response: obeys mf3 commands(2); Systolic BP: > 89 mm Hg(4); Respiratory Rate: 10 to 29 per min(4); Newcomb Score: 15; Trauma Score: 12 ED Course: 19:08 Patient arrived in ED. rv1 19:09 Cristino Vaughn DO is Attending Physician. tt7 19:20 Viktoria Blake, MALINDA is Primary Nurse. mf3 19:21 Patient has correct armband on for positive identification. Bed in low position. Call mf3 light in reach. Side rails up X2. Patient maintains SpO2 saturation greater than 95% on room air. 19:21 Patient maintains SpO2 saturation greater than 95% on room air. mf3 19:23 Triage completed. mf3 19:30 Arm band placed on left wrist. Patient placed in an exam room. mf3 19:31 Provided Education on: pt educated on POC. mf3 19:31 Inserted saline lock: 22 gauge in left hand, using aseptic technique. mf3 19:32 Thermoregulation: warm blanket given to patient. mf3 19:40 Radiology exam delayed due to lab results not completed at this time. (BUN/Creatinine) nj IV insertion attempt and/or patient not having appropriate IV at this time. 19:45 Inserted saline lock: 20 gauge in right wrist, using aseptic technique. mf3 19:57 XRAY Chest (1 view) In Process Unspecified. EDMS 21:00 CT Head C Spine In Process Unspecified. EDMS 21:00 CT Chest Angio In Process Unspecified. EDMS 21:09 Initiated transfer with Rhonda at [facility]. rv1 21:18 Pt auto-accepted to [facility] ER by Dr. Caraballo, [facility] rv1 to transfer. 21:31 Marisol with [facility] gave 25 minute ETA. rv1 22:11 No provider procedures requiring assistance completed. mf3 22:12 Patient transferred, IV remains in place. intact, bleeding controlled, No mf3 redness/swelling at site. Administered Medications: 21:22 Drug: Keppra IV 1000 mg IV at bolus once Route: IV; Rate: bolus; Site: right wrist; mf3 21:37 Follow up: Response: No adverse reaction; IV Status: Completed infusion mf3 Medication: 19:32 VIS not applicable for this client. mf3 Outcome: 19:21 Patient's length of stay was not longer than 2 hours. mf3 21:09 ER care complete, transfer ordered by . tt7 22:12 Transferred by helicopter to [facility], mf3 22:12 Condition: good 22:12 Instructed on the need for transfer, Demonstrated understanding of follow-up care, 22:12 Patient left the ED. mf3 Signatures: Dispatcher [employer] Marcello Fink Rebecca rv1 Viktoria Blake RN RN mf3 Cristion Vaughn DO DO tt7 Corrections: (The following items were deleted from the chart) 19:30 19:30 PMHx: Hypothyroidism; mf3 mf3 19:30 19:30 PMHx: Hypothyroidism; mf3 mf3 19:30 PMHx: Brain bleed; mf3 mf3 19:30 PMHx: Hypercholesterolemia; mf3 mf3 19:30 PMHx: Leukemia; mf3 mf3 19:30 PMHx: Aneurysm; Aortic; mf3 3 19:30 PSHx: partial thyroidectomy; mf3 mf3 19:30 PSHx: Thoracic artery disection surgery with stent; mf3 mf3 19:30 PSHx: Renal Artery stent; 3 mf3
--- NOTE | 2025-07-26 21:10 | EDPHYS ---
Physician Documentation [facility] Name: Marlene Valderrama Age: 80 yrs Sex: Female : 1945 Arrival Date: 07/26/2025 Time: 19:08 Bed 4 Private MD: ED Physician Cristino Vaughn HPI: 07/26 21:11 This 80 yrs old Female presents to ER via EMS with complaints of Fall Injury. tt7 21:11 EMS reported that patient was witnessed by friends to have tripped over her dog and tt7 fell hitting her head, had loss of consciousness and was not responsive on scene, gradually became more responsive until she arrived in the emergency department where she had an appropriate mental status, she was not able to remember the fall, medical history includes hypertension and aortic aneurysm, currently she has no complaints other than headache. Historical: - Allergies: 19:30 No Known Allergies; mf3 - PMHx: 19:30 HTN; mf3 - Immunization history: Last tetanus immunization: - up to date. - Infectious Disease History:: Denies. - Social history:: Smoking status: Patient denies any tobacco usage or history of. ROS: 21:12 Constitutional: negative for fever. Cardiovascular: negative for chest pain. tt7 Respiratory: negative for shortness of breath. Abdomen/GI: negative for abdominal pain, nausea, vomiting, diarrhea. Back: Negative for injury and pain, Skin: negative for rash. Neuro: negative for focal weakness. Exam: 21:14 Constitutional: vital signs reviewed, well appearing. Head/Face: normocephalic, tt7 moderate-sized hematoma to the left frontal scalp, no palpable skull fracture, no Pack sign or raccoon eyes Eyes: no conjunctival injection, anicteric sclerae, PERRL. ENT: mucus membranes moist, nose atraumatic, no septal hematoma, no oral trauma. Neck: trachea midline, no JVD, no meningismus, no cervical spine step-off or deformity, no cervical tenderness. Chest/axilla: normal chest wall appearance and motion, nontender, no crepitus. Cardiovascular: regular rate and rhythm, no murmurs, no rubs, no lower extremity edema. Respiratory: normal respiratory effort, no accessory muscle use, lungs CTAB. Abdomen/GI: soft, nondistended, nontender, no guarding or rebound, negative Sherman's sign, no McBurney point tenderness. Back: normal ROM. Skin: warm, dry, intact, normal turgor, normal color, no rash. MS/ Extremity: normal ROM of extremities, no gross deformities. Neuro: alert and oriented with appropriate mental status, normal speech, follows commands, no focal neurologic deficits. Psych: appropriate mood and affect. Vital Signs: 19:21 BP 174 / 65; Pulse 65; Resp 18; Temp 97.4; Pulse Ox 100% on R/A; Weight 66.22 kg; mf3 Height 5 ft. 4 in. ; Pain 8/10; 20:00 BP 164 / 66; Pulse 70; Resp 17; Pulse Ox 95% on R/A; mf3 21:00 BP 169 / 72; Pulse 68; Resp 18; Pulse Ox 100% on R/A; mf3 21:30 BP 146 / 67; Pulse 70; Resp 18; Temp 97.5(O); Pulse Ox 100% on R/A; Pain 0/10; mf3 19:21 Body Mass Index 25.06 (66.22 kg, 162.56 cm) 3 19:21 Pain Scale: Adult mf3 21:30 Pain Scale: Adult mf3 [place] Coma Score: 19:21 Eye Response: spontaneous(4). Motor Response: obeys commands(6). Verbal Response: mf3 oriented(5). Total: 15. Trauma Score (Adult): 19:21 Eye Response: spontaneous(1); Verbal Response: oriented(1); Motor Response: obeys mf3 commands(2); Systolic BP: > 89 mm Hg(4); Respiratory Rate: 10 to 29 per min(4); Tavon Score: 15; Trauma Score: 12 MDM: 19:09 Medical Screening Exam initiated tt7 20:57 Differential diagnosis: closed head injury, contusion, fracture, Cerebral tt7 intraparenchymal hemorrhage, subarachnoid hemorrhage, subdural hematoma, epidural hematoma, cardiac syncope, aortic dissection, ACS, pulmonary embolism. Data reviewed: vital signs, nurses notes, lab test result(s), EKG, radiologic studies. ED course: I independently interpreted the patient's EKG performed on 07/26/2025 at 1919. On my interpretation, EKG demonstrates normal sinus rhythm, ventricular rate 64 bpm, normal axis, normal QRS interval, slight ST depression in leads V4 and V5, no STEMI. 21:17 ED course: 80-year-old female with a fall and head injury, vital signs are overall tt7 stable, neurologic exam is normal, she is amnestic to the incident but no focal abnormalities, she does report that she might take a blood thinner but is not sure, I have independently interpreted the patient's CT imaging of the head without contrast, there is a 1.2 cm acute subdural hemorrhage with approximately 4 mm of midline shift. 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 21:20 Counseling: I had a detailed discussion with the patient and/or guardian regarding the tt7 historical points, exam findings, and any diagnostic results supporting the discharge/admit diagnosis, radiology results, the need to transfer to another facility. 07/27 04:32 ED course: This patient has a medical condition that impairs one or more vital organ tt7 systems and has a high probability of imminent or life threatening deterioration in their condition. Management of this patient required my highest level of care and included frequent personal assessment and intervention. I personally spent 35 minutes of critical care time, exclusive of time spent on separately billable procedures, in the evaluation and management of this patient's condition. This critical care time included independently obtaining a history, examining the patient, pulse oximetry, cardiac telemetry monitoring, ordering and review of studies laboratory and imaging studies, development of a management plan, evaluation of patient's response to treatment, frequent reassessment, and discussion with other healthcare providers. 07/26 19:17 Order name: Basic Metabolic Panel; Complete Time: 20:50 tt7 07/26 19:17 Order name: CBC with Diff; Complete Time: 22:04 tt7 07/26 19:17 Order name: LFT's; Complete Time: 20:50 tt7 07/26 19:17 Order name: PT-INR; Complete Time: 20:50 tt7 07/26 19:17 Order name: Troponin HS; Complete Time: 20:50 tt7 07/26 19:17 Order name: Type And Screen; Complete Time: 20:54 tt7 07/26 21:27 Order name: Manual Differential; Complete Time: 22:04 EDMS 07/26 19:17 Order name: XRAY Chest (1 view); Complete Time: 20:50 tt7 07/26 19:17 Order name: CT Head C Spine; Complete Time: 22:04 tt7 07/26 19:17 Order name: CT Chest Angio tt7 07/26 19:17 Order name: Cardiac monitoring; Complete Time: 19:29 tt7 07/26 19:17 Order name: EKG - Nurse/Tech; Complete Time: 19:29 tt7 07/26 19:17 Order name: IV Saline Lock; Complete Time: 19:29 tt7 07/26 19:17 Order name: Labs collected and sent; Complete Time: 20:31 tt7 07/26 19:17 Order name: O2 Per Protocol; Complete Time: 19:29 tt7 07/26 19:17 Order name: O2 Sat Monitoring; Complete Time: 19:29 tt7 Administered Medications: 07/26 21:22 Drug: Keppra IV 1000 mg IV at bolus once Route: IV; Rate: bolus; Site: right wrist; 3 21:37 Follow up: Response: No adverse reaction; IV Status: Completed infusion 3 Disposition: 07/27 04:34 Co-signature as Attending Physician, Cristino Vaughn DO. tt7 Disposition Summary: 07/26/25 21:09 Transfer Ordered Notes: Transfer Location: [facility] tt7 Reason: Higher level of care tt7 Condition: Serious tt7 Problem: new tt7 Symptoms: are unchanged tt7 Accepting Physician: (07/26/25 22:12) 3 Diagnosis - Traumatic subdural hemorrhage with loss of consciousness of unspecified duration tt7 Forms: - Medication Reconciliation Form tt7 - SBAR form tt7 Signatures: Dispatcher [employer] EDViktoria Lazcano RN RN 3 Cristino Vaughn DO DO tt7 Corrections: (The following items were deleted from the chart) 07/26 19:17 19:17 Head C Spine MPR Wo Con+CT.RAD.BRZ ordered. EDMS EDMS 19:18 19:18 Chest Angio+CT.RAD.BRZ ordered. EDMS EDMS 19:30 19:30 PMHx: Hypothyroidism; mf3 mf3 19:30 PMHx: Hypothyroidism; mf3 mf3 19:30 PMHx: Brain bleed; mf3 mf3 19:30 PMHx: Hypercholesterolemia; mf3 mf3 19:30 PMHx: Leukemia; mf3 mf3 19:30 PMHx: Aneurysm; Aortic; mf3 mf3 19:30 PSHx: partial thyroidectomy; mf3 mf3 19:30 PSHx: Thoracic artery disection surgery with stent; mf3 mf3 19:30 PSHx: Renal Artery stent; mf3 mf3 22:12 21:09 Dr. amaya mf3
--- NOTE | 2025-07-26 21:12 | RAD REPORT ---
EXAM: CT brain without contrast HISTORY: TRAUMA COMPARISON: None TECHNIQUE: Multiple contiguous axial images were obtained and a CT of the brain without contrast. Sag ittal and coronal reformats were performed. FINDINGS: Mixed density left frontoparietal convexity subdural hemorrhage, measuring up to 1.2 cm in thickness posteriorly. Tentorial and posterior falcine hyperdense subdural hemorrhage measuring up to 3 mm in thickness. Mass effect upon the left hemisphere with 4 mm rightward midline shift. Effacement of the left lateral ventricle. No intraventricular hemorrhage. No evidence of transtentorial herniation. No evidence of hydrocephalus, or parenchymal hemorrhage. Moderate brain atrophy with moderate patchy periventricular and deep white matter chronic microvascu lar ischemic changes present. The calvarium is intact. Left frontal scalp hematoma. The visualized paranasal sinuses and mastoid ai r cells are essentially clear. IMPRESSION: Mixed density subdural hemorrhage along the left frontoparietal convexity, and small tentorial and po sterior falcine hyperdense subdural hemorrhage. Mass effect with rightward midline shift measuring 4 mm. THIS REPORT CONTAINS FINDINGS THAT MAY BE CRITICAL TO PATIENT CARE. The findings were verbally commun icated via telephone to Cristino Vaughn MD on 07/26/2025 9:07 PM. EXAM: CT of the cervical spine without contrast HISTORY: TRAUMA COMPARISON: None TECHNIQUE: Multiple contiguous axial images were obtained in a CT of the cervical spine without contr ast. Sagittal and coronal reformats were performed. FINDINGS: The vertebral bodies demonstrate normal height and alignment. No evidence of acute fracture or subluxation.. No degenerative changes are present. No prevertebral soft tissue swelling is seen. The posterior facets are well aligned. Normal alignment of the skull base with the cervical spine is seen. The lung apices are unremarkable. IMPRESSION: No evidence of acute osseous abnormality of the cervical spine.
[2025-07-26] MEDS ORDERED: NA CHLORIDE 0.9% 100 ML ONE (21:14)
[2025-07-26] MEDS ORDERED: LEVETIRACETAM 500 MG/5 ML VIAL IV ONE (21:14)
[2025-07-26 21:36] LABS: Blood Morphology Comment NOT SEEN (NOT SEEN); Differential Total Cells Count 100; Segmented Neutrophils 18 % (40-80); Smudge Cells PRESENT
--- NOTE | 2025-07-26 22:19 | RAD REPORT ---
EXAM: CT Chest Angio TECHNIQUE: CT angiogram of the chest was performed following intravenous contrast administration, inc luding sagittal and coronal as well as maximum intensity projection reformats. One or more of the following dose reduction techniques were used: Automated exposure control, adjustment of the mA and k V according to patient size, and iterative reconstruction. Unless otherwise specified, incidental findings do not require dedicated imaging follow-up. INDICATION: Fall. DISSECTION Bed Name: 4 COMPARISON: 04/13/2024. FINDINGS: LINES/TUBES: None. PULMONARY ARTERIES: Main pulmonary arteries are normal in caliber. No filling defects within the pul monary arteries to suggest pulmonary embolus. LUNGS AND AIRWAYS: The lungs and central airways are normal without focal abnormality. PLEURA: No effusion or pneumothorax. HEART AND MEDIASTINUM: The visualized thyroid gland is normal. Fusiform aneurysmal dilation of the as cending thoracic aorta measuring up to 4.7 cm. Fusiform aneurysmal dilation of the distal arch and descending thoracic aorta with endograft stent. Overall, the findings are stable. No mediastinal, hil ar, or axillary lymphadenopathy. Heart is unremarkable. No pericardial effusion. SOFT TISSUES AND BONES: No acute osseous abnormality. No significant soft tissue finding. UPPER ABDOMEN: Near fluid density right liver lobe 1 cm lesion, stable. IMPRESSION: No evidence of acute central pulmonary emboli. 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 No other suspicious intrathoracic findings..
[2025-07-26 22:49] VITALS: O2SAT 100
[2025-07-26 22:51] VITALS: BP 146/67; TEMP 97.5
== END 2025-07-26 22:12 | disposition short-term general hospital (02) ==
LOC: ER 19:09
DX: S06.5X9A Traumatic subdural hemorrhage with loss of consciousness of unspecified duration, initial encounter (principal); W01.10XA Fall on same level from slipping, tripping and stumbling with subsequent striking against unspecified object, initial encounter; Y93.89 Activity, other specified; Y92.9 Unspecified place or not applicable
CPT/HCPCS: 93005; 85025; 80048; 36415; 86900; 86850; 85610; 86901; 80076; 84484; 70450; 72125; 71275; 71045; 96374; 99285; J1953